=== PATIENT | female | born 1940 | race Caucasian/White ===

== ENCOUNTER → 2020-02-10 | Outpatient (REF) | payer MEDICARE, OTHER | LOC: M LAB REF 09:37 | PROVIDERS: ATTEND Dermatology | DX: C44.319 Basal cell carcinoma of skin of other parts of face (principal); L90.5 Scar conditions and fibrosis of skin ==

== ENCOUNTER → 2020-08-01 | Outpatient (CLI) | payer MEDICARE, OTHER ==
--- NOTE | 2020-08-01 14:16 | REP ---
INDICATION: PAIN LEFT HIP COMPARISON: None. TECHNIQUE: Frontal view of the pelvis with neutral and frog-lateral views of the left hip. FINDINGS: Advanced osteoarthritic degenerative changes include osteophytosis, subchondral/periarticular heterogeneity and cystic changes along with near complete joint space obliteration. No acute fracture or dislocation. IMPRESSION: Advanced osteoarthritic degenerative changes to the left hip. <Electronically signed by Max Ayala > 08/01/20 [id number]
== END ==
LOC: M SOG 13:41
PROVIDERS: ATTEND Orthopaedic Surgery Adult Reconstructive Orthopaedic Surgery
DX: M16.12 Unilateral primary osteoarthritis, left hip (principal)

== ENCOUNTER → 2020-10-30 | Outpatient (CLI) | payer MEDICARE, OTHER | LOC: M PT 13:26 | PROVIDERS: ATTEND Orthopaedic Surgery Adult Reconstructive Orthopaedic Surgery | DX: M17.12 Unilateral primary osteoarthritis, left knee (principal) ==

== ENCOUNTER → 2020-11-20 | Outpatient (CLI) | payer MEDICARE, OTHER ==
[~2020-11-20] MED LIST: ASCO50TA PO; ASPI-161 PO; ASPI-551 PO; C 50TAB PO; DOCU100C16 PO; FERR1TAB8 PO; FERR325T3 PO; LISI20TA33 PO; MM S100C PO; TRAM50TA2 PO
--- NOTE | 2020-11-20 11:55 | REP ---
INDICATION: LT HIP OA. COMPARISON: Radiographs 08/01/2020. TECHNIQUE: Axial CT of the pelvis and hips, bilateral knees performed with sagittal and coronal reconstruction images, as per Rasta protocol. FINDINGS: There is no evidence of fracture or dislocation. There are degenerative changes of the lower lumbar spine. There is moderately severe narrowing of both hip joints with associated subchondral sclerosis and cystic change in the left acetabulum and femoral head, with subchondral sclerosis in the right acetabulum and femoral head. There is moderate spurring of the right femoral head and acetabulum. Large spurs are noted of the left femoral head and acetabulum. No adenopathy is seen in the pelvis. There is extensive diverticulosis of the sigmoid colon without evidence of acute diverticulitis. No pelvic mass is visualized. IMPRESSION: Degenerative changes lower lumbar spine and bilateral hips as discussed above. <Electronically signed by Lars Kramer > 11/20/20 [id number]
== END ==
LOC: M RAD 10:31
PROVIDERS: ATTEND Orthopaedic Surgery Adult Reconstructive Orthopaedic Surgery
DX: M16.12 Unilateral primary osteoarthritis, left hip (principal)

== ENCOUNTER → 2020-11-27 | Outpatient (CLI) | payer MEDICARE, OTHER ==
[~2020-11-27] MED LIST changes: -ASCO50TA PO; -ASPI-161 PO; -ASPI-551 PO; -C 50TAB PO; -DOCU100C16 PO; -FERR1TAB8 PO; -FERR325T3 PO; -MM S100C PO; -TRAM50TA2 PO
[2020-11-27 11:32] LABS: APPEARANCE, URINE CLEAR (CLEAR); BILIRUBIN, URINE AUTO NEGATIVE (NEGATIVE); BLOOD, URINE BLOOD NEGATIVE (NEGATIVE); COLOR, URINE STRAW (YELLOW); GLUCOSE, URINE (UA) AUTO NEGATIVE (NEGATIVE); KETONE, URINE AUTO TRACE mg/dL (NEGATIVE); LEUKOCYTE ESTERASE, URINE AUTO NEGATIVE (NEGATIVE); NITRITE, URINE AUTO NEGATIVE (NEGATIVE); PROTEIN, URINE AUTO NEGATIVE (NEGATIVE); SPECIFIC GRAVITY URINE AUTO 1.004 (1.002-1.035); UROBILINOGEN, URINE AUTO 0.2 mg/dL (0.0-2.0)
[2020-11-27 11:33] LABS: BACTERIA, URINE AUTO NEGATIVE (NEGATIVE); RBC, URINE AUTO 1 /HPF (0-3); SQUAMOUS EPITHELIAL CELL UR AU 0 /HPF (0-6); WBC, URINE AUTO 1 /HPF (0-3)
[2020-11-27 11:35] LABS: BASO % 0.5 % (0.0-1.0); EOS # 0.1 10^3/uL (0.0-0.5); EOS % 0.8 % (0.0-3.0); HEMATOCRIT 43.7 % (36.0-47.0); HEMOGLOBIN 14.7 g/dl (12.0-15.5); LYMPH # 1.7 10^3/uL (1.5-5.0); LYMPH % 26.9 % (24.0-44.0); MEAN CORPUSCULAR HEMOGLOBIN 31.1 pg (27.0-33.0); MEAN CORPUSCULAR HGB CONC 33.6 g/dl (32.0-36.5); MEAN CORPUSCULAR VOLUME 92.6 fl (80.0-96.0); MONO # 0.4 10^3/uL (0.0-0.8); MONO % 6.6 % (2.0-8.0); NEUTROPHILS # 4.1 10^3/uL (1.5-8.5); NEUTROPHILS % 64.7 % (36.0-66.0); PLATELET COUNT, AUTOMATED 311 10^3/uL (150-450); RED BLOOD COUNT 4.72 10^6/uL (4.00-5.40); WHITE BLOOD COUNT 6.3 10^3/uL (4.0-10.0)
[2020-11-27 11:42] LABS: INR 0.91; PROTHROMBIN TIME 12.7 SECONDS (12.7-14.5)
[2020-11-27 12:14] LABS: ALBUMIN 3.9 GM/DL (3.2-5.2); ALT/SGPT 28 U/L (12-78); BILIRUBIN,TOTAL 0.7 MG/DL (0.2-1.0); BLOOD UREA NITROGEN 12 MG/DL (7-18); CALCIUM LEVEL 9.5 MG/DL (8.8-10.2); CARBON DIOXIDE LEVEL 27 MEQ/L (21-32); CHLORIDE LEVEL 105 MEQ/L (98-107); GLOMERULAR FILTRATION RATE > 60.0 (>39); GLUCOSE, FASTING 89 MG/DL (70-100); POTASSIUM SERUM 4.2 MEQ/L (3.5-5.1); SODIUM LEVEL 138 MEQ/L (136-145); TOTAL PROTEIN 6.9 GM/DL (6.4-8.2)
--- NOTE | 2020-11-27 12:56 | ECGEPIP ---
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
== END ==
LOC: M LAB 10:44
PROVIDERS: ATTEND Nurse Practitioner Family
DX: Z01.818 Encounter for other preprocedural examination (principal); Z79.01 Long term (current) use of anticoagulants

== ENCOUNTER → 2020-11-29 | Outpatient (CLI) | payer MEDICARE, OTHER | LOC: M LABSMTC 09:06 | PROVIDERS: ATTEND Anesthesiology | DX: Z01.818 Encounter for other preprocedural examination (principal); Z11.52 Encounter for screening for COVID-19 ==

== ENCOUNTER 2020-12-04 08:53 | Observation (INO) | payer MEDICARE, OTHER ==
[~2020-12-04] VITALS: Ht 160 cm; Wt 61.2 kg
[~2020-12-04 08:53] MED LIST changes: +ACETAMINOPHEN 500 MG TAB PO ONE; +GLYCOPYRROLATE INJ 0.2 MG/ML 2 ML VIAL As Ordered ONE; +LIDOCAINE 2% 100MG/5ML SDV (FOR ANES.) As Ordered ONE; +METOCLOPRAMIDE INJ 10MG/2ML VIAL (J2765 PER 1) As Ordered ONE; +MIDAZOLAM INJ 2MG/2ML VIAL (J2250 PER 1MG) As Ordered ONE; +MORPHINE 10 MG/ML 1ML VIAL (J2270) As Ordered ONE; +NAPROXEN 250 MG TAB PO ONE; +NEOSTIGMINE 10MG/10ML VIAL (J2710 PER 0.5MG) As Ordered ONE; +NS 1,000 ML IV ONE; +ONDANSETRON 4MG/2ML VIAL As Ordered ONE; +PREGABALIN 25 MG CAP (LYRICA) PO ONE; +ROCURONIUM BROMIDE 50 MG/5 ML VIAL As Ordered ONE; +ROPIVA 125MG/EPINEPH 0.25MG/CLONID 40MCG/KETOR 15MG IN NS 50ML SYRINGE PA ONE; +TRANEXAMIC ACID INJection 1,000 MG in NS 50 ML IV ONE; +ceFAZolin SOD 1 GM in D5W MINI-BAG PLUS 50 ML IV ONE; +ceFAZolin SOD 2 GM in IV 1 EA IV ONE; +dexameTHASONE 4 MG/ML 1ML VIAL (J1100 PER 1MG) IV ONE; +fentaNYL 100 MCG/2 ML INJECTION (J3010) As Ordered ONE; +propofoL 200 MG/20 ML VIAL As Ordered ONE
[2020-12-04] MEDS ORDERED: TRANEXAMIC ACID 100 MG/ML 10ML VIAL As Ordered ONE (10:51)
[2020-12-04] MEDS ORDERED: ePHEDrine SULFATE 25 MG/5 ML(5MG/ML) SYRINGE As Ordered ONE (12:02)
[2020-12-04] MEDS ORDERED: propofoL 200 MG/20 ML VIAL As Ordered ONE (13:01)
[2020-12-04] MEDS ORDERED: MOM 30ML SUSPENSION UDC PO PRN (14:15)
[2020-12-04] MEDS ORDERED: fentaNYL 100 MCG/2 ML INJECTION (J3010) IV PRN (14:15)
[2020-12-04] MEDS ORDERED: oxyCODONE 5MG TAB PO PRN ×3 (14:15→14:20)
[2020-12-04] MEDS ORDERED: LR 1,000 ML IV SCH (14:15)
[2020-12-04] MEDS ORDERED: ONDANSETRON 4MG/2ML VIAL IV PRN ×2 (14:15→14:20)
[2020-12-04] MEDS ORDERED: SENOKOT S TAB PO PRN (14:15)
[2020-12-04] MEDS ORDERED: MIRALAX *UNIT DOSE* 17GM PACKET PO PRN (14:15)
--- NOTE | 2020-12-04 14:18 | ROOPDOC ---
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 ESTIMATED BLOOD LOSS: Approximately less than 200 mL. COMPLICATIONS: No known REMARKS: Patient was seen in the preoperative area and the left lower extremity was checked for any active bleeding ulcerations or signs of infection. Patient did not demonstrate any of these. The consent was reviewed. Prior to surgical intervention the [facility] plan was reviewed and adjusted.. FINDINGS: Left hip osteoarthritis with coxa magna and dysplasia SPECIMENS REMOVED: None PROCEDURE NOTE: Components: [place] Trident 2 titanium acetabular shell size 52 mm Accolade 2 size # 4 femoral stem MDM liner 28 mm inner diameter Ceramic femoral head 28 mm standard 0 DESCRIPTION OF PROCEDURE: The patient was brought to the operating room and a surgical pause was carried out. The patient was then positioned for a spinal anesthetic which was carried out. The patient was then positioned in the right lateral decubitus position for the left total hip arthroplasty. Appropriate padding was carried out including an axillary roll. Patient was secured with the Stulberg positioning system. The patient and underwent a chlorhexidine wash of the left lower extremity followed by 2 times alcohol wash and then 1 hydrogen peroxide wash. 2 standard sterile chlorhexidine preps were carried out utilizing the [facility]. The patient was then prepped and draped in the standard fashion. Of note, in the right lateral decubitus position. It was noted that the patient had an internal rotation deformity of the left lower extremity with no external rotation available and limited abduction of the hip. A surgical pause was carried out and a surgical safety checklist was completed. The modified Alexander approach was utilized for the lateral skin incision. Skin and subcutaneous tissues were incised down to the fascia. The fascia was split. This was retracted to expose the abductors. The abductors and capsule were elevated using electrocautery in a single layer. Hohmann retractors were placed to help with visualization. Once the proximal femur had been skeletonized the soft tissue, the iliac crest array was placed using 3 pins for the Rasta system. The patient did have a very narrow iliac crest so the initial 3 stab incisions were connected to make 1 long incision to allow dissection down to the iliac crest and better positioning of the pins. The checkpoint for the greater trochanter was then placed. The left lower extremity was then registered. The hip was dislocated. The labrum was removed with electrocautery and other soft tissues to help with exposure. Electrocautery was used for hemostasis throughout the procedure. The acetabular checkpoint was then placed. The pelvis and acetabular cup was then registered using the [employer] robot. The robot was then brought in for appropriate reaming as per the preoperative plan. A 52 mm cup was reamed. Additional soft tissue was removed from the acetabulum using electrocautery. The [employer] robot was then used to impact the cup at the preplanned version and abduction angle. This was seated appropriately. The dual mobility liner was then impacted without difficulty and check to ensure it was secured. The patient then had the leg placed in the bag with a femoral elevator and a Cat elevating the proximal femur. Electrocautery was used to free up soft tissue at the posterior lateral aspect of the femur. A rongeur and then a box osteotome were used to open up the femoral canal followed by the canal finder. Broaching then occurred up to a size 4, following the tuscarora version of the patient's femoral canal. The size 4 appeared to be the most appropriate. A calcar reamer was utilized. This was trialed with the standard head and neck and found to be a little tight and had lengthen the leg according to the robotic program. This was retrialed with a -2.7 head. This appeared to be appropriate. There was appropriate tensioning, leg length and offset as well as a good stable range of motion. This was trialed and the leg was taken through stable range of motion without any risk of dislocation being noted. The final compo nents were assembled. The stem was inserted. This was retrialed. It was noted that the -2.7 head neck combination was a few millimeters off so a 0 head neck combination was utilized and trialed and found to be appropriate. The trunnion of the size 4 stem was cleansed with normal sterile saline and dried and then the dual mobility head was impacted. This was then reduced and taken through a full stable range of motion. Wound was irrigated and tranexamic acid was allowed to sit for 3 minutes. The wound also had Betadine soaking in it. The layered closure then occurred with #1 Vicryl closure deep followed by #1 Vicryl and strata fix for the abductors and then #1 Vicryl and strata fix for the fascia. The subcutaneous layer was closed with interrupted #1 Vicryl followed by running 2.0 Vicryl followed by three-point 0 Monocryl. Normal sterile saline and Betadine washes were carried out in between layers. The incision for the iliac crest array was irrigated with normal sterile saline and painted with Beta dine before closure with #1 Vicryl, 2.0 Vicryl and three-point 0 Monocryl. The wounds were sealed with Steri-Strips followed by Telfa and Tegaderm for the iliac crest dressing and a Mepilex dressing for the Alexander incision. The patient was taken to the recovery room stable with no known complications The patient will be admitted to the hospitalist service. Anticipate discharge postop day 1 if there are no issues. Physical therapy to mobilize. Discharge Instructions Total Hip Arthroplasty 1. Pain: You may take oxycodone as prescribed for pain. Supplement with Naproxen and Tylenol as needed. Ice pack to operative hip as tolerated. 2. Wound care: Remove lateral head dressing on postop day 7. The iliac crest pin site dressing can be changed every 3 days with Telfa and Tegaderm. call [phone] with any questions or concerns. Hygiene: The patient may shower. No tub baths. Check dressing seal prior to bathing. 3. Activity: WBAT right lower extremity. Front wheeled walker versus crutches for ambulation. Fall precautions. Anterolateral hip precautions (NO figure of 4/crossing legs, combined external rotation/extension, combined internal rotation/abduction). 4. Driving: No driving until cleared by your surgeon. Do not drive if taking narcotic pain medications as these may make you drowsy. 5. DVT Prophylaxis: Continue taking aspirin 81 mg p.o. twice daily as prescribed for the prevention of blood clots. Ankle pumps every 1 hour while awake. ROLA hose at all times for 1 month after surgery. May remove for hygiene and wound care. 6. Placement: Plan is to discharge patient to home with home health including nursing and physical therapy. 7. Surgeon Follow-up: The patient is scheduled to be seen in Dr. Lisa's office 2 weeks post op with xrays. 8. Primary care Follow-up: Please see your primary care provider in the next 2 to 5 weeks for general medical re-evaluation and medication review. 9. Labs: CBC without differential to be drawn on postop day 3 with results to PCP and please fax to [phone]. 10. Please contact [facility] if you have any questions or concerns at [phone]. CHANTEL LISA MD Dec 04, 2020 14:18
[2020-12-04] MEDS ORDERED: SENNA 8.6 MG TAB (SENOKOT) PO PRN (14:20)
--- NOTE | 2020-12-04 14:22 | REP ---
INDICATION: POST OP/LOWSET AP PELVIS. COMPARISON: Preoperative examination 08/01/2020 TECHNIQUE: A single AP view of the pelvis was performed. FINDINGS: Since the last examination a total left are hip arthroplasty was performed. The femoral and acetabular components of which are well seated and well approximated. The alignment is near anatomical. Advanced degenerative changes are again seen involving the right hip. IMPRESSION: As above <Electronically signed by Narinder Young > 12/04/20 [id number]
[2020-12-04 15:00] VITALS: BP 124/75
[2020-12-04 15:30] VITALS: BP 124/73
[2020-12-04] MEDS: NAPROXEN 250 MG TAB PO SCH (15:39)
[2020-12-04] MEDS: ASPIRIN 81MG ENTERIC TABLET PO SCH ×2 (15:39→20:23)
[2020-12-04] MEDS: ACETAMINOPHEN TAB 650MG DOSE (2X325MG) PO SCH ×2 (15:40→17:56)
[2020-12-04] MEDS: LR 1,000 ML IV SCH (15:40)
[2020-12-04 15:45] LABS: HEMATOCRIT 38.5 % (36.0-47.0); HEMOGLOBIN 12.4 g/dl (12.0-15.5); MEAN CORPUSCULAR HEMOGLOBIN 30.8 pg (27.0-33.0); MEAN CORPUSCULAR HGB CONC 32.2 g/dl (32.0-36.5); MEAN CORPUSCULAR VOLUME 95.5 fl (80.0-96.0); PLATELET COUNT, AUTOMATED 273 10^3/uL (150-450); RED BLOOD COUNT 4.03 10^6/uL (4.00-5.40); WHITE BLOOD COUNT 9.5 10^3/uL (4.0-10.0)
[2020-12-04 15:55] LABS: INR 1.05; PROTHROMBIN TIME 14.1 SECONDS (12.7-14.5)
[2020-12-04 15:56] LABS: PARTIAL THROMBOPLASTIN TIME 26.9 SECONDS (25.9-37.0)
[2020-12-04 16:06] LABS: BLOOD UREA NITROGEN 10 MG/DL (7-18); CARBON DIOXIDE LEVEL 28 MEQ/L (21-32); CHLORIDE LEVEL 107 MEQ/L (98-107); CREATININE FOR GFR 0.79 MG/DL (0.55-1.30); GLOMERULAR FILTRATION RATE > 60.0 (>39); GLUCOSE, FASTING 146 MG/DL (70-100); POTASSIUM SERUM 4.4 MEQ/L (3.5-5.1); SODIUM LEVEL 140 MEQ/L (136-145)
[2020-12-04 16:30] VITALS: BP 121/70
[2020-12-04 17:30] VITALS: BP 121/70
[2020-12-04] MEDS: ceFAZolin SOD 2 GM in IV 1 EA IV SCH (17:55)
[2020-12-04] MEDS: traMADol 50 MG TAB PO PRN (17:56)
--- NOTE | 2020-12-04 18:18 | HPEPDOC ---
[facility] Medical History & Physical Date of Admission Dec 04, 2020 Date of Service: Dec 04, 2020 History and Physical CHIEF COMPLAINT: Status post left hip replacement/left hip osteoarthritis HISTORY OF PRESENT ILLNESS: 80-year-old female with history of left hip osteoarthritis with severe limitations of activities of daily living failed on conservative management status post left hip replacement. Patient was medically optimized by her primary care physician. Hospitalist was called to admit the patient for postop care status post left hip replacement. Patient denies fever chills weight gain weight loss nausea vomiting diarrhea abdominal pain dysuria urgency frequency hematemesis coffee-ground emesis shortness of breath chest pain pressure tightness lightheadedness dizziness polyuria polyphagia polydipsia joint pains muscle aches bilateral upper lower extremity weakness paresthesias expressive or receptive aphasia depression anxiety anemia lymphadenopathy. Patient currently has 0 out of 10 pain while lying in bed. PAST MEDICAL HISTORY: Hypertension gastroesophageal reflux disease PAST SURGICAL HISTORY: Colonoscopy 2011 neck cyst removal basal cell carcinoma Dr. Cordon 2019 cataract removal bilateral 2017 SOCIAL HISTORY: Denies alcohol recreational drug use tobacco use lives alone FAMILY HISTORY: Father of lung cancer mother hypertension due to heart disease ALLERGIES: Please see below. REVIEW OF SYSTEMS: 10 point review of systems negative aside from positive findings in HPI HOME MEDICATIONS: Please see below. PHYSICAL EXAMINATION: VITAL SIGNS: See below GENERAL APPEARANCE: No distress no cyanosis pallor or icterus HEENT: No JVD thyromegaly moist mucous membranes CARDIOVASCULAR: S1-S2 regular rate rhythm no murmurs rubs or gallops LUNGS: Clear to auscultation bilaterally ABDOMEN: Positive bowel sounds soft nontender nondistended EXTREMITIES: Postop left hip no pitting edema bilateral lower extremities LABORATORY DATA: See below. IMAGING: See below MICROBIOLOGY: Please see below. ASSESSMENT: 80-year-old female who lives alone with gastroesophageal reflux disease hypertension basal cell carcinoma cataract extraction cyst removal in the neck with severe osteoarthritis of the left hip status post replacement. Left hip replacement-postop management per orthopedic surgery including activity level DVT prophylaxis pain control bowel regimen ARU has been consulted. Patient lives alone. Gastroesophageal reflux disease-resume PPI Hypertension-resume lisinopril CODE STATUS full code Vital Signs Vital Signs Date Time Temp Pulse Resp B/P (MAP) Pulse Ox O2 Delivery O2 Flow Rate FiO2 12/04/20 17:56 16 12/04/20 16:30 97.1 66 121/70 (87) 96 Room Air Laboratory Data Labs 24H Laboratory Tests 2 12/04/20 15:31: Nucleated Red Blood Cells % (auto) 0.2H, Prothrombin Time 14.1H, Prothromb Time International Ratio 1.05, Activated Partial Thromboplast Time 26.9, Anion Gap 5L, Glomerular Filtration Rate > 60.0, Calcium Level 9.0 CBC/BMP Laboratory Tests 12/04/20 15:31 Home Medications Scheduled Lisinopril (Lisinopril) 20 Mg Tablet, 20 MG PO DAILY Allergies Coded Allergies: No Known Allergies (Unverified , 12/04/20) A-FIB/CHADSVASC A-FIB History Current/History of A-Fib/PAF?: No Current PO Anticoag Therapy: No Age/Risk Factor Scoring CHADSVASC: CHADSVASC Response (Comments) Value Age Risk Factor Age >/= 75 years old 2 Gender Risk Factor Female 1 Hx of CHF No 0 Hx of HTN Yes 1 Hx of Stroke/TIA/or VTE No 0 Hx of Diabetes No 0 Hx of Vascular Disease No 0 Total 4 Treatment Treatment ordered: NONE YAKOV BUTLER MD Dec 04, 2020 18:18
[2020-12-04 18:30] VITALS: BP 114/72
[2020-12-04] MEDS: DOCUSATE SODIUM 100MG CAPSULE PO SCH (20:23)
[2020-12-04 20:30] VITALS: BP 99/59
[2020-12-05] MEDS: ACETAMINOPHEN TAB 650MG DOSE (2X325MG) PO SCH ×3 (00:39→12:19)
[2020-12-05] MEDS: LR 1,000 ML IV SCH (00:40)
[2020-12-05 00:43] VITALS: BP 99/58
[2020-12-05] MEDS: NAPROXEN 250 MG TAB PO SCH (02:33)
[2020-12-05] MEDS: ceFAZolin SOD 2 GM in IV 1 EA IV SCH (02:33)
[2020-12-05 04:42] VITALS: BP 104/57
[2020-12-05 06:44] LABS: BLOOD UREA NITROGEN 13 MG/DL (7-18); CALCIUM LEVEL 8.3 MG/DL (8.8-10.2); CARBON DIOXIDE LEVEL 24 MEQ/L (21-32); CHLORIDE LEVEL 107 MEQ/L (98-107); CHOLESTEROL LEVEL 161 MG/DL (<200); CHOLESTEROL RISK RATIO 1.987 (<5); GLOMERULAR FILTRATION RATE > 60.0 (>39); GLUCOSE, FASTING 107 MG/DL (70-100); HDL CHOLESTEROL 81 MG/DL (>40); LDL CHOLESTEROL 69 MG/DL (<100); NON-HDL-C 80 MG/DL; POTASSIUM SERUM 4.4 MEQ/L (3.5-5.1); SODIUM LEVEL 139 MEQ/L (136-145); TRIGLYCERIDES LEVEL 55 MG/DL (<150)
--- NOTE | 2020-12-05 07:24 | IPNPDOC ---
Text Note Date of Service The patient was seen on 12/05/20. NOTE POD 1 L GRISEL Pt denies any severe pain. Mobilizing to BR with walker and assist. No CP/SOB. Dressing intact to left hip and thigh area as well as the iliac crest, no significant staining, no bruising, mild swelling. Grossly neurovascular intact to left foot and ankle with palpable posterior tibial pulse sensation to light touch and moving toes and ankle. Pacu xrays show L GRISEL prosthesis in position with no obvious complications. Plan for PT and Hospitalist evaluation, possible DC home today. Discharge Instructions Total Hip Arthroplasty 1. Pain: You may take oxycodone as prescribed for pain. Supplement with Naproxen and Tylenol as needed. Ice pack to operative hip as tolerated. 2. Wound care: Remove dressing on postop day 7. Call [phone] with any questions or concerns. Hygiene: The patient may shower. No tub baths. Check dressing seal prior to bathing. 3. Activity: WBAT left lower extremity. Front wheeled walker versus crutches for ambulation. Fall precautions. Anterolateral hip precautions (NO figure of 4/crossing legs, combined external rotation/extension, combined internal rotation/abduction). 4. Driving: No driving until cleared by your surgeon. Do not drive if taking narcotic pain medications as these may make you drowsy. 5. DVT Prophylaxis: Continue taking aspirin 81 mg p.o. twice daily as prescribed for the prevention of blood clots. Ankle pumps every 1 hour while awake. ROLA hose at all times for 1 month after surgery. May remove for hygiene and wound care. 6. Placement: Plan is to discharge patient to home with home health including nursing and physical therapy. 7. Surgeon Follow-up: The patient is scheduled to be seen in Dr. Lisa's office 2 weeks post op with xrays. 8. Primary care Follow-up: Please see your primary care provider in the next 2 to 5 weeks for general medical re-evaluation and medication review. 9. Labs: CBC without differential to be drawn on postop day 3 with results to PCP and please fax to [phone]. 10. Please contact [facility] if you have any questions or concerns at [phone]. VS,Fishbone, I+O VS, Fishbone, I+O Laboratory Tests 12/04/20 15:31 12/05/20 05:33 Vital Signs Date Time Temp Pulse Resp B/P (MAP) Pulse Ox O2 Delivery O2 Flow Rate FiO2 12/05/20 04:42 97.1 67 19 104/57 (73 97 Room Air I&O- Last 24 Hours up to 6 AM 12/05/20 06:00 Intake Total 2105 ml Output Total 850 ml Balance 1255 ml CHANTEL LISA MD Dec 05, 2020 07:24
[2020-12-05 07:49] LABS: HEMATOCRIT 32.1 % (36.0-47.0); MEAN CORPUSCULAR HEMOGLOBIN 30.6 pg (27.0-33.0); MEAN CORPUSCULAR HGB CONC 32.7 g/dl (32.0-36.5); MEAN CORPUSCULAR VOLUME 93.6 fl (80.0-96.0); PLATELET COUNT, AUTOMATED 268 10^3/uL (150-450); RED BLOOD COUNT 3.43 10^6/uL (4.00-5.40); WHITE BLOOD COUNT 11.7 10^3/uL (4.0-10.0)
[2020-12-05 07:50] LABS: HEMOGLOBIN 10.5 g/dl (12.0-15.5)
--- NOTE | 2020-12-05 08:15 | IPNPDOC ---
Date Seen The patient was seen on 12/05/20. Progress Note SUBJECTIVE: c/o minimal 3/10 pain left hip while sitting in bed having breakfast slept well. no c/o n/v/sob/cp OBJECTIVE: PHYSICAL EXAMINATION: VITAL SIGNS: See below GENERAL APPEARANCE: eating breakfast sitting in bed No distress no cyanosis pallor or icterus HEENT: No JVD thyromegaly moist mucous membranes no stridor CARDIOVASCULAR: S1-S2 regular rate rhythm no murmurs rubs or gallops LUNGS: Clear to auscultation bilaterally no w/r/r ABDOMEN: Positive bowel sounds soft nontender nondistended EXTREMITIES: Postop left hip no pitting edema bilateral lower extremities LABORATORY DATA: See below. IMAGING: See below MICROBIOLOGY: Please see below. ASSESSMENT: 80-year-old female who lives alone with gastroesophageal reflux disease hypertension basal cell carcinoma cataract extraction cyst removal in the neck with severe osteoarthritis of the left hip status post replacement. Left hip replacement-postop day 1 management per orthopedic surgery including activity level DVT prophylaxis pain control bowel regimen ARU has been consulted. took 2 tylenol this am w pain 3/10 at bedside . Gastroesophageal reflux disease-resume PPI Hypertension-resume lisinopril but hold if sbp<130mmhg. CODE STATUS full code dispo: await pt/ot evaluation 1-2 days vs aru VS, I&O, 24H, [facility] Vital Signs/I&O Vital Signs Date Time Temp Pulse Resp B/P (MAP) Pulse Ox O2 Delivery O2 Flow Rate FiO2 12/05/20 04:42 97.1 67 19 104/57 (73) 97 Room Air I&O- Last 24 Hours up to 6 AM 12/05/20 06:00 Intake Total 2105 ml Output Total 850 ml Balance 1255 ml Laboratory Data 24H LABS Laboratory Tests 2 12/04/20 15:31: Nucleated Red Blood Cells % (auto) 0.2H, Prothrombin Time 14.1H, Prothromb Time International Ratio 1.05, Activated Partial Thromboplast Time 26.9, Anion Gap 5L, Glomerular Filtration Rate > 60.0, Calcium Level 9.0 12/05/20 05:33: Anion Gap 8, Glomerular Filtration Rate > 60.0, Calcium Level 8.3L, Trigl ycerides Level 55, Total Cholesterol 161, LDL Cholesterol 69, Non-HDL Cholesterol (LDL + VLDL) 80, Total HDL Cholesterol 81, Cholesterol/HDL Ratio 1.987 12/05/20 07:16: Nucleated Red Blood Cells % (auto) 0.0 CBC/BMP Laboratory Tests 12/04/20 15:31 12/05/20 05:33 12/05/20 07:16 YAKOV BUTLER MD Dec 05, 2020 08:15
[2020-12-05] MEDS ORDERED: ENOXAPARIN 40MG/0.4ML SYRINGE (J1650 PER 10MG) SC SCH (09:00)
[2020-12-05] MEDS ORDERED: ASCORBIC ACID 500 MG TAB PO SCH (09:00)
[2020-12-05] MEDS ORDERED: FERROUS SULFATE 325MG TAB PO SCH (09:00)
[2020-12-05] MEDS: ASPIRIN 81MG ENTERIC TABLET PO SCH (09:06)
[2020-12-05] MEDS: DOCUSATE SODIUM 100MG CAPSULE PO SCH (09:06)
[2020-12-05 09:07] VITALS: BP 139/69
[2020-12-05] MEDS: traMADol 50 MG TAB PO PRN (09:07)
[2020-12-05 10:00] VITALS: BP 113/57
[2020-12-05] MEDS ORDERED: ASPI-551 PO (11:55)
[2020-12-05] MEDS ORDERED: DOCU100C16 PO (11:55)
[2020-12-05] MEDS ORDERED: FERR1TAB8 PO (11:55)
[2020-12-05] MEDS ORDERED: TRAM50TA2 PO (11:55)
[2020-12-05] MEDS ORDERED: ASCO50TA PO (11:55)
--- NOTE | 2020-12-05 12:01 | DS.PDOC ---
Discharge Summary General Date of Admission Dec 04, 2020 at 14:06 Date of Discharge 12/05/20 Discharge Summary PROCEDURES PERFORMED DURING STAY: Left hip replacement UNIT ASSISTANT: ORTHOPEDIC SURGERY: DR. LISA DISCHARGE DIAGNOSES: Left hip osteoarthritis s/p left hip replacement iron deficiency anemia HTN GERD DISCHARGE MEDICATIONS: SEE BELOW DISCHARGE INSTRUCTIONS: POSTOP MGT PER ORTHOPEDIC SURGERY. PCP 5 DAYS. HOSPITAL COURSE: 80-year-old female who lives alone with gastroesophageal reflux disease hypertension basal cell carcinoma cataract extraction cyst removal in the neck with severe osteoarthritis of the left hip with severe limitations of her activities of daily living, failed on conservative management as outpt, admitted for left hip replacement status post replacement. Hospitalist admitted the patient postoperatively. Left hip replacement-postop day 1 management per orthopedic surgery including activity level DVT prophylaxis pain control bowel regimen ARU has been consulted, but patient did well with pt/ot who recommended dc home today. took 2 tylenol this am w pain 3/10 at bedside . on prn tramadol. Gastroesophageal reflux disease-resume PPI Hypertension-resume lisinopril but hold if sbp<130mmhg. CODE STATUS full code DISCHARGE PHYSICAL EXAMINATION: PHYSICAL EXAMINATION: VITAL SIGNS: See below GENERAL APPEARANCE: eating breakfast sitting in bed No distress no cyanosis pallor or icterus HEENT: No JVD thyromegaly moist mucous membranes no stridor CARDIOVASCULAR: S1-S2 regular rate rhythm no murmurs rubs or gallops LUNGS: Clear to auscultation bilaterally no w/r/r ABDOMEN: Positive bowel sounds soft nontender nondistended EXTREMITIES: Postop left hip no pitting edema bilateral lower extremities LABORATORY DATA: see chart IMAGING: See chart MICROBIOLOGY: Please see below. TIME SPENT ON DISCHARGE: 30MINUTES. Vital Signs/I&Os Vital Signs Date Time Temp Pulse Resp B/P (MAP) Pulse Ox O2 Delivery O2 Flow Rate FiO2 12/05/20 10:00 97.2 63 18 113/57 (75) 100 Room Air I&O- Last 24 Hours up to 6 AM 12/05/20 05:59 Intake Total 2105 ml Output Total 850 ml Balance 1255 ml Laboratory Data Labs 24H Laboratory Tests 2 12/04/20 15:31: Nucleated Red Blood Cells % (auto) 0.2H, Prothrombin Time 14.1H, Prothromb Time International Ratio 1.05, Activated Partial Thromboplast Time 26.9, Anion Gap 5L, Glomerular Filtration Rate > 60.0, Calcium Level 9.0 12/05/20 05:33: Anion Gap 8, Glomerular Filtration Rate > 60.0, Calcium Level 8.3L, Triglycerides Level 55, Total Cholesterol 161, LDL Cholesterol 69, Non-HDL Cholesterol (LDL + VLDL) 80, Total HDL Cholesterol 81, Cholesterol/HDL Ratio 1.987 12/05/20 07:16: Nucleated Red Blood Cells % (auto) 0.0 CBC/BMP Laboratory Tests 12/04/20 15:31 12/05/20 05:33 12/05/20 07:16 Discharge Medications Scheduled Ascorbic Acid (Vitamin C) 500 Mg Tablet, 500 MG PO DAILY Aspirin (Aspirin EC) 81 Mg Tablet.dr, 81 MG PO BID Docusate Sodium (Docusate Sodium) 100 Mg Capsule, 100 MG PO BID Ferrous Sulfate (Ferrous Sulfate) 325 Mg Tablet, 325 MG PO DAILY Lisinopril (Lisinopril) 20 Mg Tablet, 20 MG PO DAILY, (Reported) Scheduled PRN Tramadol HCl (Tramadol HCl) 50 Mg Tablet, 50 MG PO Q4HP PRN for MILD PAIN (PS 1- 4) Allergies Coded Allergies: No Known Allergies (Unverified , 12/04/20) YAKOV BUTLER MD Dec 05, 2020 12:01
--- OUTSIDE RECORDS SUMMARY | 2020-12-20 10:11 | CCD | Continuity of Care Document ---
Author Author Kristyn LISA MD Organization Unknown Address [address] , [facility] [place] [address] Phone [phone] Care Team Providers Care Tools Developer Name Role Phone Gilma Banks M.D. AUTM [phone] AUTM Unavailable Problems Active Problems Provider Date Essential hypertension Khadar Lisa MD Onset: 08/01/2020 Social History Type Date Description Comments Sex Unknown ETOH Use Consumes 1 glass of wine per day Tobacco Use Start: Unknown Non Smoker Recreational Drug Use Denies Drug Use Smoking Status Reviewed: 10/16/20 Non Smoker Allergies and adverse reactions Description No Known Drug Allergies Medications Active Medications SIG Qnty Indications Ordering Provide r Date Lisinopril 20mg Tablets 1 tab by mouth daily Unknown Immunizations Description No Information Available Vital Signs Date Vital Result Comment 10/16/2020 12:56pm Body Temperature 98.2 F 08/16/2020 2:32pm Body Temperature 97.2 F Results Description No Information Available Procedures Date Code Description Status 12/04/2020 96626 Arthroplasty Hip Total Completed 10/16/2020 99580 Office/Outpatient Established Mo d MDM 30-39 Min Completed 08/16/2020 18879 Office/Outpatient Established Mo d MDM 30-39 Min Completed 08/01/2020 96302 Office/Outpatient New Moderate M DM 45-59 Minutes Completed Medical Devices Description No Information Available Encounters Type Date Location Provider Dx Diagnosis Office Visit 10/16/2020 1:00p [facility] Khadar Lisa MD M16.12 Unilateral primary osteoarthritis, left hip Office Visit 08/16/2020 2:30p Emily Lisa MD M16.12 Unilateral primary osteoarthritis, left hip [facility] Unilateral primary osteoarthritis, left hip Assessments Date Code Description Provider 12/04/2020 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 She is having issues with the hip locking up, presenting a falls risk. She was advised that she may want to consider utilizing her walker in the meantime.I did explain to the patient that a total joint replacement procedure is an elective procedure. Candidacy for the procedure is based on imaging and the patient's symptoms and whether or not the patient would like to proceed with the surgery. The procedure is performed for pain relief only. Any other gains are secondary. The risks of the procedure include but are not limited to infection, periprosthetic fracture, damage to local neurovascular or soft tissue structures, deep vein thrombosis or pulmonary emboli, and need for revision surgery. Anesthetic risks will be discussed with the anesthesiologist. These include but are not limited to, heart attack, stroke and .The patient was advised that the Rasta robot would be used to assist with her total hip arthroplasty and literature was provided for thisThe lm sorto does have Hibiclens [facility] prior to surgery.A total joint booklet was providedThe patient signed consent for left total hip arthroplasty Rasta robotic assisted * Follow up:* Booking left total hip arthroplasty Functional Status Description No Information Available Mental Status Description No Information Available Referrals Description No Information Available
--- OUTSIDE RECORDS SUMMARY | 2020-12-20 10:11 | CCD | Continuity of Care Document ---
Author Author Kristyn LISA MD Organization Unknown Address [address] [facility], [facility] [place] [address] Phone [phone] Care Team Providers Care Water Analyst Name Role Phone Gilma Banks M.D. AUTM [phone] AUTM Unavailable Problems Active Problems Provider Date Essential hypertension Khadar Lisa MD Onset: 08/01/2020 Social History Type Date Description Comments Sex Unknown ETOH Use Consumes 1 glass of wine per day Tobacco Use Start: Unknown Non Smoker Recreational Drug Use Denies Drug Use Smoking Status Reviewed: 12/18/20 Non Smoker Allergies and adverse reactions Description No Known Drug Allergies Medications Active Medications SIG Qnty Indications Ordering Provide r Date Lisinopril 20mg Tablets 1 tab by mouth daily Unknown Tramadol HCL 50mg Tablets Gini Wilkes M.D. SM Aspirin Adult Low Strength 81mg Tablets Gini Salas M.D. 000 Ferrous Sulfate 325(65Fe) mg Tablets Gini Salas M.D. Docusate Sodium 100mg Capsules Gini Wilkes M.D. Immunizations Description No Information Available Vital Signs Date Vital Result Comment 10/16/2020 12:56pm Body Temperature 98.2 F 08/16/2020 2:32pm Body Temperature 97.2 F Results Description No Information Available Procedures Date Code Description Status 12/04/2020 99611 Arthroplasty Hip Total Completed 10/16/2020 92048 Office/Outpatient Established Mo d MDM 30-39 Min Completed 08/16/2020 21842 Office/Outpatient Established Mo d MDM 30-39 Min Completed 08/01/2020 94651 Office/Outpatient New Moderate M DM 45-59 Minutes Completed Medical Devices Description No Information Available Encounters Type Date Location Provider Dx Diagnosis Office Visit 12/18/2020 10:00a [facility] Khadar Lisa MD C95.90 Leukemia, unspecified not having achieved remission Z96.642 Presence of left artificial hip joint Z47.89 Encounter for other orthoped ic aftercare Office Visit 10/16/2020 1:00p [facility] Khadar Lisa MD M16.12 Unilateral primary osteoarthritis, left hip Office Visit 08/16/2020 2:30p [facility] Khadar Lisa MD M16.12 Unilateral primary osteoarthritis, left hip Office Visit 08/01/2020 2:00p [facility] Khadar Lisa MD M16.12 Unilateral primary osteoarthritis, left hip Assessments Date Code Description Provider 12/18/2020 C95.90 Leukemia Khadar Lisa MD 12/18/2020 Z96.642 History of total replacement of left hip joint Khadar Lisa MD 12/18/2020 Z47.89 Encounter for other orthopedic a ftercare Khadar Lisa MD 12/04/2020 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 This most likely represents chronic lymphocytic leukemia (CLL/SLL), but mantle cell lymphoma cannot be completely ruled out.Peripheral blood flow cytometry, including FISH study for CLL and t (11; 14) is recommended. If lymphadenopathy present, lymph node biopsy is also recommended.B-Cell PCR: The sample yield DNA of insufficient quantity to provide a valid results. If clinically indicated please submit a new sample.Degenerative joint disease.Comment: Hematology/oncology consultation is recommended.Spoke with the pathologist by phone. Consultation for hematology/oncology sent with Dr. Small at [facility]. Discussed with patient * Z96.643 History of total replacement of left hip joint* New Labs:* CBC With Differential, Ordered: 12/18/20 * Comments:* The patient appears to have well-healing incisions. The left total hip arthroplasty prosthesis is in good position. She would like to go to outpatient physical therapy near [place] and we will send a prescription there when she is ready for this. She continues with home therapy for now. I have answered her questions her satisfaction. We will see her for follow-up in 4 weeks time for reevaluation.The patient did have some dizziness and weakness reported postop. Her hemoglobin was 10.5 on discharge which was fairly decent. This will be repeated with a CBC and differential. She is taking iron currently. * Follow up:* 4 weeks * Z47.89 Encounter for other orthopedic aftercare Functional Status Description No Information Available Mental Status Description No Information Available Referrals Refer to Reason for Referral Status Appt Date Nicole Small M.D. Left hip, bone and tissue, s /p total hip arthroplasty: Diffuse CD5 positive B-cell infiltrates. This most likely represents chronic lymphocytic leukemia (CLL/SLL), but mantle cell lymphoma cannot be completely ruled out. Peripheral blood flow cytometry, including FISH study for CLL and t (11; 14) is recommended. If lymphadenopathy present, lymph node biopsy is also recommended. B-Cell PCR: The sample yield DNA of insufficient quantity to provide a valid results. If clinically indicated please submit a new sample. Degenerative joint disease. Comment: Hematology/oncology consultation is recommended. [facility] Medical Oncology & Hematology [address] [place] [address] [phone]
--- OUTSIDE RECORDS SUMMARY | 2020-12-20 10:11 | CCD | Continuity of Care Document ---
Author Author Kristyn MONSIVAIS M.D. Organization Unknown Address [address] [place] [address] Phone [phone] Care Team Providers Care Snack Bar Cook Name Role Phone Renetta MAHMOOD.Tereso AUTM [phone] Mario Contreras MD AUTM [phone] [facility] G[facility] - Gastroenterology AUTM [facility] Nurse Practitioners - Dermatology AUTM [phone] Problems Active Problems Provider Date Essential hypertension Nguyen Alex RPA-C Onset: 06/11 Mixed hyperlipidemia Nguyen Alex RPA-C Onset: 012 Social History Type Date Description Comments Sex Unknown Tobacco Use Start: Unknown Never Used Smokeless Tobacco ETOH Use Occasionally consumes alcohol Tobacco Use Start: Unknown Patient has never smoked Recreational Drug Use Denies Drug Use Smoking Status Reviewed: 12/10/20 Patient has never smoked Exercise Type/Frequency Exercises regularly Tattoo/Piercing Pierced ears Sun Exposure Use less than 15 SPF Seat Belt/Car Seat Always uses seat belt Smoke Alarms Yes Smoke Alarms Carbon Monoxide Detector: Yes Allergies, Adverse Reactions, Alerts Description No Known Drug Allergies Medications Active Medications SIG Qnty Indications Ordering Provide r Date Lisinopril 20mg Tablets 1 tab by mouth every morning for blood pressure 90tabs I10 Gilma Monsivais M.D. 06/07/2010 Vitamin C 500mg Tablets 1 by mouth every day Unknown Aspir-[address] 1 by mouth every day Unknown Docusate Sodium 100mg Capsules take one capsule by mouth twice a day to soften stool Unk nown Ferrous Sulfate 325mg Tablets 1 tab po daily Unknown Tramadol HCL 50mg Tablets take 1 tablet by mouth every 6 hours as needed for pain Unknown Immunizations CPT Code Status Date Vaccine Lot # [id number] Given 05/14/2020 Moderna Sars-(Co vid-19) vaccine, mRNA, LNP-S, PF, 100 mcg/ 0.5 mL 45769 Given 04/12/2020 Moderna Sars-(Co vid-19) vaccine, mRNA, LNP-S, PF, 100 mcg/ 0.5 mL 10853 Given 12/22/2017 Influenza Virus Vaccine, Oliver drivalent,multidose vial 63443 Given 03/10/2017 Boostrix (Tdap) Tetnus, Diphtheria Toxoids & Acellular Pertussis [id number] 91824 Given 12/10/2016 Influenza Vaccination 39856 Given 01/23/2016 Influenza Vaccination 04079 Given 08/24/2014 Prevnar 13 [id number] 68040 Given 12/02/2013 Influenza Vaccination 93361 Given 08/25/2013 Zostavax 85775 Given 02/10/2013 Influenza Vaccination 39418 Given 01/23/2012 Pneumococcal Vaccine [id number] 90807 Given 01/23/2012 Influenza Vaccination/preser vative free [id number] Q2038 Given 12/10/2010 Influenza Vaccine (Fluzone)( medicare) 36655 Given 12/10/2010 Influenza Vaccination [id number] Vital Signs Date Vital Result Comment 12/10/2020 11:00am BP Systolic 159 mmHg BP Diastolic 72 mmHg BP Systolic Recheck 133 mmHg BP Diastolic Recheck 66 mmHg Heart Rate 100 /min Body Temperature 97.0 F Respiratory Rate 18 /min Height 63 inches 5'3" Weight 135.00 lb O2 % BldC Oximetry 98 % Peak Expiratory Flow Rate 306 Estimated Peak Flow Rate [place] Body Weight 115 lb BMI (Body Mass Index) 23.9 kg/m2 10/09/2020 11:18am BP Systolic 189 mmHg BP Diastolic 95 mmHg BP Systolic Recheck 124 mmHg BP Diastolic Recheck 84 mmHg Heart Rate 89 /min Body Temperature 98.0 F Respiratory Rate 16 /min Height 63 inches 5'3" Weight 137.25 lb O2 % BldC Oximetry 97 % Peak Expiratory Flow Rate 299 Estimated Peak Flow Rate [place] Body Weight 115 lb BMI (Body Mass Index) 24.3 kg/m2 Results Test Acquired Date Facility Test Result H/L Range Note Ua Routine 11/27/2020 [facility] [phone] Appearance, Urine CLEAR Normal Clear Color, Urine STRAW Normal Yellow PH,Urine 6.0 units Normal 5.0-9.0 Specific [place] Urine Auto 1.004 Normal 1.002-1.035 Protein, Urine Auto NEGATIVE mg/dL Normal Negative Glucose, Urine (Ua) Auto NEGATIVE mg/dL Normal Negative Ketone, Urine Auto TRACE mg/dL High Negative Urobilinogen, Urine Auto 0.2 mg/dL Normal 0.0-2.0 Bilirubin, Urine Auto NEGATIVE Normal Negative Nitrite, Urine Auto NEGATIVE Normal Negative Leukocyte Esterase, Urine Auto NEGATIVE Normal Negative Blood, Urine Blood NEGATIVE Normal Negative WBC, Urine Auto 1 /HPF Normal 0-3 RBC, Urine Auto 1 /HPF Normal 0-3 Bacteria, Urine Auto NEGATIVE Normal Negative Squamous Epithelial Cell Ur AU 0 /HPF Normal 0-6 Hyaline Cast, Urine Auto 0 /LPF Normal 0-1 Laboratory test finding 11/27/2020 [facility] [phone] Urine Culture FULL REPORT IN L <SEE NOTE> Normal 1 PT & Aptt 11/27/2020 [place] [address] [phone] Prothrombin Time 12.7 seconds Normal 12.7-14.5 Inr 0.91 Normal 2 Partial Thromboplastin Time 27.0 seconds Normal 25.9-37.0 Comprehensive Metabolic Profil 11/27/[address] [place] [address] [phone] Glucose, Fasting 89 mg/dL Normal 70-100 Blood Urea Nitrogen 12 mg/dL Normal 7-18 Creatinine For GFR 0.70 mg/dL Normal 0.55-1.30 Glomerular Filtration Rate > 60.0 Normal >39 3 Sodium Level 138 mEq/L Normal 136-145 Potassium Serum 4.2 mEq/L Normal 3.5-5.1 Chloride Level 105 mEq/L Normal 98-107 Carbon Dioxide Level 27 mEq/L Normal 21-32 Anion Gap 6 mEq/L Low 8-16 Calcium Level 9.5 mg/dL Normal 8.8-10.2 Ast/Sgot 19 U/L Normal 7-37 Alt/SGPT 28 U/L Normal 12-78 Alkaline Phosphatase 72 U/L Normal 45-117 Bilirubin,Total 0.7 mg/dL Normal 0.2-1.0 Total Protein 6.9 GM/DL Normal 6.4-8.2 Albumin 3.9 GM/DL Normal 3.2-5.2 Albumin/Globulin Ratio 1.3 Normal 1.2-2.2 CBC With Differential 11/27/2020 Patient Service [place], [place] [id number] [phone] White Blood Count 6.3 10 Normal 4.0-10.0 Red Blood Count 4.72 10 Normal 4.00-5.40 Hemoglobin 14.7 g/dL Normal 12.0-15.5 Hematocrit 43.7 % Normal 36.0-47.0 Mean Corpuscular Volume 92.6 fl Normal 80.0-96.0 Mean Corpuscular Hemoglobin 31.1 pg Normal 27.0-33.0 Mean Corpuscular HGB Conc 33.6 g/dL Normal 32.0-36.5 Red Cell Distribution Width 12.6 % Normal 11.5-14.5 Platelet Count, Automated 311 10 Normal 150-450 Neutrophils % 64.7 % Normal 36.0-66.0 Lymph % 26.9 % Normal 24.0-44.0 Mineral % 6.6 % Normal 2.0-8.0 Eos % 0.8 % Normal 0.0-3.0 Baso % 0.5 % Normal 0.0-1.0 Immature Granulocyte % 0.5 % Normal 0-3.0 Nucleated Red Blood Cell % 0.0 % Normal 0-0 Neutrophils # 4.1 10 Normal 1.5-8.5 Lymph # 1.7 10 Normal 1.5-5.0 Mineral # 0.4 10 Normal 0.0-0.8 Eos # 0.1 10 Normal 0.0-0.5 Baso # 0.0 10 Normal 0.0-0.2 CBC With Differential 10/15/2020 [facility] [address] [place] [address] [phone] WBC 5.6 x10E3/uL 3.4-10.8 RBC 4.57 x10E6/uL 3.77-5.28 Hemoglobin 14.1 g/dL 11.1-15.9 Hematocrit 42.1 % 34.0-46.6 MCV 92 fL 79-97 MCH 30.9 pg 26.6-33.0 MCHC 33.5 g/dL 31.5-35.7 RDW 12.5 % 11.7-15.4 Platelets 330 x10E3/uL 150-450 Neutrophils 54 % Not Estab. Lymphs 36 % Not Estab. Monocytes 8 % Not Estab. Eos 1 % Not Estab. Basos 1 % Not Estab. Immature Cells TNP Neutrophils (Absolute) 3.1 x10E3/uL 1.4-7.0 Lymphs (Absolute) 2.0 x10E3/uL 0.7-3.1 Monocytes(Absolute) 0.4 x10E3/uL 0.1-0.9 Eos (Absolute) 0.0 x10E3/uL 0.0-0.4 Baso (Absolute) 0.0 x10E3/uL 0.0-0.2 Immature Granulocytes 0 % Not Estab. Immature Grans (Abs) 0.0 x10E3/uL 0.0-0.1 NRBC [facility] Hematology Comments: [facility] Lipid Panel 10/15/2020 [facility] [address] [place], [place] [id number] [phone] Cholesterol, Total 242 mg/dL High 100-199 Triglycerides 64 mg/dL 0-149 HDL Cholesterol 104 mg/dL >39 VLDL Cholesterol Humza 11 mg/dL 5-40 LDL Chol Calc (Nih) 127 mg/dL High 0-99 Comment: [facility] Metabolic Panel (14), Comprehensive 10/15/2020 [facility] [address] [place] [address] [phone] Glucose 104 mg/dL High 65-99 BUN 9 mg/dL 8-27 Creatinine 0.72 mg/dL 0.57-1.00 eGFR If NonAfricn Am 80 mL/min/1.73 >59 eGFR If Africn Am 93 mL/min/1.73 >59 4 BUN/Creatinine Ratio 13 12-28 Sodium 137 mmol/L 134-144 Potassium 5.0 mmol/L 3.5-5.2 Chloride 101 mmol/L 96-106 Carbon Dioxide, Total 23 mmol/L 20-29 Calcium 9.6 mg/dL 8.7-10.3 Protein, Total 6.5 g/dL 6.0-8.5 Albumin 4.5 g/dL 3.7-4.7 Globulin, Total 2.0 g/dL 1.5-4.5 A/G Ratio 2.3 High 1.2-2.2 Bilirubin, Total 0.5 mg/dL 0.0-1.2 Alkaline Phosphatase 74 IU/L 48-121 Ast (Sgot) 19 IU/L 0-40 Alt (SGPT) 17 IU/L 0-32 1 FULL REPORT IN LAB NOTES (eC W and Medent). SPECIMEN APPEARS CONTAMINATED 2 THERAPUTIC HUMAN INR VALUES INDICATIONS NORMAL RANGES PROPHYLAXIS/TREATMENT OF: VENOUS THROMBOSIS 2.0-3.0 PULMONARY EMBOLISM 2.0-3.0 PREVENTION OF SYSTEMIC EMBOLISM FROM: TISSUE HEART VALVES 2.0-3.0 ACUTE MYOCARDIAL INFARCTION 2.0-3.0 VALVULAR HEART DISEASE 2.0-3.0 ATRIAL FIBRILLATION 2.0-3.0 MECHANICAL VALVES(HIGH RISK) 2.5-3.5 RECURRENT MYOCARDIAL INFARCTION 2.5-3.5 3 Units are mL/min/1.73 m2 Chronic Kidney Disease Staging per NKF: Stage I & II GFR >=60 Normal to Mildly Decreased Stage III GFR 30-59 Moderately Decreased Stage IV GFR 15-29 Severely Decreased Stage V GFR <15 Very Little GFR Left ESRD GFR <15 on HUM[employer] OFFICE MANAGER 4 [facility] currently reports eGFR in compliance with the current recommendations of the National Kidney Foundation. [facility] will update reporting as new guidelines are published from the NKF-ASN Task force. Procedures Date Code Description Status 12/10/2020 77300 Trans Care SRV Aft DC W/I 14D, C omm W/I 2 Dys Med Decs Completed 11/27/2020 07317 Office/Outpatient Established Mo d MDM 30-39 Min Completed 11/27/2020 45896 EKG Interpretation & Report Comp leted 10/09/2020 83920 Office/Outpatient Established Lo w MDM 20-29 Min Completed 12/02/2019 [id number] Mammogram Completed 03/25/2018 [id number] Bone Mineral Density Test Comple maycol 08/17/2015 [id number] Mammogram Completed 04/2011 [id number] Colonoscopy Completed Medical Devices Description No Information Available Encounters Type Date Location Provider Dx Diagnosis Office Visit 12/10/2020 11:00a Main Office Gilma Monsivais M.D. I 10 Essential (primary) hypertension M25.552 Pain in left hip Office Visit 10/09/2020 11:15a Main Office Gilma Monsivais M.D. Z 00.00 Encntr for general adult medical exam w/o abnormal findings I10 Essential (primary) hyperten sara E78.2 Mixed hyperlipidemia Assessments Date Code Description Provider 12/10/2020 I10 Essential (primary) hypertension Gilma Monsivais M.D. 12/10/2020 M25.552 Pain in left hip Gilma Monsivais M.D. 11/27/2020 Z01.818 Encounter for other preprocedura l examination Lucie Randolph, [facility] 11/27/2020 I10 Essential (primary) hypertension Lucie Randolph, [employer] 11/27/2020 E78.2 Mixed hyperlipidemia Sarthak Randolph, [facility] 11/27/2020 M16.12 Unilateral primary osteoarthriti s, left hip PleLucie buenrostro, [employer] 10/09/2020 Z00.00 Encounter for genera l adult medical examination without abnormal findings Gilma Monsivais M.D. 10/09/2020 I10 Essential (primary) hypertension Gilma Monsivais M.D. 10/09/2020 E78.2 Mixed hyperlipidemia Chitra Monisvais M.D. Plan of Treatment Future Appointment(s):* 10/08/2021 11:30 am - Gilma Monsivais M.D. at Main Office 12/10/2020 - Gilma Monsivais M.D.* I10 Essential (primary) hypertension * M25.552 Pain in left hip* Comments:* improved after hip replacement. Continue with therapy and home exercises. * Follow up:* . Goals 12/10/2020 - Gilma Monsivais M.D.* I10 Essential (primary) hypertension* Stay active and continue meds to maintain good blood pressure readings. Functional Status Functional Condition Comment Date Status Independent with all ADL's Activ e Bifocal glasses Active Independent with all IADL's Acti ve Mental Status Mental Condition Comment Date Status None Active Referrals Description No Information Available
--- OUTSIDE RECORDS SUMMARY | 2020-12-20 10:11 | CCD ---
Continuity of Care Document (CCD) Created on: 12/18/2020 Kristyn Bowles External Reference #: [id number] : [id number] Sex: Female Author Author Kristyn LISA MD Organization Unknown Address [address] [facility], [facility] [place] [address] Phone [phone] Care Team Providers Care Silk Screen Frame Assembler Name Role Phone Gilma Banks M.D. AUTM [phone] AUTM Unavailable Problems Active Problems Provider Date [...] Available Procedures Date Code Description Status 12/04/2020 66807 Arthroplasty Hip Total Completed 10/16/2020 21607 Office/Outpatient Established Mo d MDM 30-39 Min Completed 08/16/2020 12527 Office/Outpatient Established Mo d MDM 30-39 Min Completed 08/01/2020 95844 Office/Outpatient New Moderate M DM 45-59 Minutes Completed Medical Devices Description No Information Available Encounters Type Date Location Provider Dx Diagnosis Office Visit 10/16/2020 1:00p [facility] Khadar Lisa MD M16.12 Unilateral primary osteoarthritis, left hip Office Visit 08/16/2020 2:30p [facility] Khadar Lisa MD M16.12 Unilateral primary osteoarthritis, left hip Office Visit 08/01/2020 2:00p 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 Small at [facility]. 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 Comment: Hematology/oncology consultation is recommended. Created [facility] Medical Oncology & Hematology [address] [place] [address] [phone]
--- OUTSIDE RECORDS SUMMARY | 2020-12-20 10:12 | CCD | Continuity of Care Document ---
Author Author Kristyn RENO RECOATING MACHINE OPERATOR Organization Unknown Address [address] [place] [address] Phone [phone] Care Team Providers Care [place] [employer] Group Leader Name Role Phone Renetta MAHMOOD.Tereso AUTM [phone] Mario Contreras MD AUTM [phone] [facility] Gastro - Gastroenterology AUTM [facility] Nurse Practitioners - Dermatology AUTM [phone] Problems Active Problems Provider Date Essential hypertension Nguyen Alex RPA-C Onset: 06/11 Mixed hyperlipidemia Nguyen Alex RPA-C Onset: 012 Social History Type Date Description Comments Sex Unknown Tobacco Use Start: Unknown Never Used Smokeless Tobacco ETOH Use Occasionally consumes alcohol Tobacco Use Start: Unknown Patient has never smoked Recreational Drug Use Denies Drug Use Exercise Type/Frequency Exercises regularly Tattoo/Piercing Pierced ears [...] morning for blood pressure 90tabs I10 Gilma Banks M.D. 06/07/2010 Immunizations CPT Code Status Date Vaccine Lot # [id number] Given 05/14/2020 Moderna Sars-(Co vid-19) vaccine, mRNA, LNP-S, PF, 100 mcg/ 0.5 mL 33783 Given 04/12/2020 Moderna Sars-(Co vid-19) vaccine, mRNA, LNP-S, PF, 100 mcg/ 0.5 mL 75159 Given 12/22/2017 Influenza Virus Vaccine, Oliver drivalent,multidose vial 06071 Given 03/10/2017 Boostrix (Tdap) Tetnus, Diphtheria Toxoids & Acellular Pertussis [id number] 56760 Given 12/10/2016 Influenza Vaccination 51057 Given 01/23/2016 Influenza Vaccination 45842 Given 08/24/2014 Prevnar 13 [id number] 51671 Given 12/02/2013 Influenza Vaccination 86932 Given 08/25/2013 Zostavax 15722 Given 02/10/2013 Influenza Vaccination 33971 Given 01/23/2012 Pneumococcal Vaccine [id number] 92431 Given 01/23/2012 Influenza Vaccination/preser vative free [id number] Q2038 Given 12/10/2010 Influenza Vaccine (Fluzone)( medicare) 17449 Given 12/10/2010 Influenza Vaccination [id number] Vital Signs Date Vital Result Comment 10/09/2020 11:18am BP Systolic 189 mmHg BP Diastolic 95 mmHg BP Systolic Recheck 124 mmHg BP Diastolic Recheck 84 mmHg Heart Rate 89 /min Body Temperature 98.0 F Respiratory Rate 16 /min Height 63 inches 5'3" Weight 137.25 lb O2 % BldC Oximetry 97 % Peak Expiratory Flow Rate 299 Estimated Peak Flow Rate [place] Body Weight 115 lb BMI (Body Mass Index) 24.3 kg/m2 10/11/2019 1:31pm BP Systolic 176 mmHg BP Diastolic 93 mmHg BP Systolic Recheck 164 mmHg BP Diastolic Recheck 84 mmHg Heart Rate 78 /min Body Temperature 97.7 F Respiratory Rate 18 /min Height 63 inches 5'3" Weight 138.50 lb O2 % BldC Oximetry 92 % Peak Expiratory Flow Rate 301 Estimated Peak Flow Rate [place] Body Weight 115 lb BMI (Body Mass Index) 24.5 kg/m2 Results Test Acquired Date Facility Test Result H/L Range Note Ua Routine 11/27/2020 [facility] nter [phone] Appearance, Urine CLEAR Normal Clear Color, Urine STRAW Normal Yellow PH,Urine 6.0 units Normal 5.0-9.0 Specific [place] Urine Auto 1.004 Normal 1.002-1.035 Protein, Urine [...] Cast, Urine Auto 0 /LPF Normal 0-1 PT & Aptt 11/27/2020 [place] [address] [phone] Prothrombin Time 12.7 seconds Normal 12.7-14.5 Inr 0.91 Normal 1 Partial Thromboplastin Time 27.0 seconds Normal 25.9-37.0 Comprehensive Metabolic Profil 11/27/[address] [place] [address] [phone] Glucose, Fasting 89 mg/dL Normal 70-100 Blood Urea Nitrogen 12 mg/dL Normal 7-18 Creatinine For GFR 0.70 mg/dL Normal 0.55-1.30 Glomerular Filtration Rate > 60.0 Normal >39 2 Sodium Level 138 mEq/L Normal 136-145 Potassium [...] CBC With Differential 11/27/2020 [place] [address] [phone] White Blood Count 6.3 10 Normal 4.0-10.0 [...] 36.0-66.0 Lymph % 26.9 % Normal 24.0-44.0 [place] % 6.6 % Normal 2.0-8.0 Eos % 0.8 % Normal 0.0-3.0 Baso % 0.5 % Normal 0.0-1.0 Immature Granulocyte % 0.5 % Normal 0-3.0 Nucleated Red Blood Cell % 0.0 % Normal 0-0 Neutrophils # 4.1 10 Normal 1.5-8.5 Lymph # 1.7 10 Normal 1.5-5.0 [place] # 0.4 10 Normal 0.0-0.8 Eos # 0.1 10 Normal 0.0-0.5 Baso # 0.0 10 Normal 0.0-0.2 CBC With Differential 10/15/[address] [facility] [address] [place] [address] [phone] WBC 5.6 x10E3/uL 3.4-10.8 RBC 4.57 x10E6/uL [...] Immature Grans (Abs) 0.0 x10E3/uL 0.0-0.1 NRBC [facility] Hematology Comments: [facility] Lipid Panel 10/15/2020 [facility] [address] [place], [place] [id number] [phone] Cholesterol, Total 242 mg/dL High 100-199 Triglycerides 64 mg/dL 0-149 HDL Cholesterol 104 mg/dL >39 VLDL Cholesterol Humza 11 mg/dL 5-40 LDL Chol Calc (Nih) 127 mg/dL High 0-99 Comment: [facility] Metabolic Panel (14), Comprehensive 10/15/2020 [facility] [address] [place] [address] [phone] Glucose 104 mg/dL High 65-99 BUN 9 mg/dL 8-27 Creatinine 0.72 mg/dL 0.57-1.00 eGFR If NonAfricn Am 80 mL/min/1.73 >59 eGFR If Africn Am 93 mL/min/1.73 >59 3 BUN/Creatinine Ratio 13 12-28 Sodium 137 mmol/L [...] 0-40 Alt (SGPT) 17 IU/L 0-32 1 THERAPUTIC HUMAN INR VALUES INDICATIONS NORMAL RANGES PROPHYLAXIS/TREATMENT OF: VENOUS THROMBOSIS 2.0-3.0 PULMONARY EMBOLISM 2.0-3.0 PREVENTION OF SYSTEMIC EMBOLISM FROM: TISSUE HEART VALVES 2.0-3.0 ACUTE MYOCARDIAL INFARCTION 2.0-3.0 VALVULAR HEART DISEASE 2.0-3.0 ATRIAL FIBRILLATION 2.0-3.0 MECHANICAL VALVES(HIGH RISK) 2.5-3.5 RECURRENT MYOCARDIAL INFARCTION 2.5-3.5 2 Units are mL/min/1.73 m2 Chronic Kidney Disease Staging per NKF: Stage I & II GFR >=60 Normal to Mildly Decreased Stage III GFR 30-59 Moderately Decreased Stage IV GFR 15-29 Severely Decreased Stage V GFR <15 Very Little GFR Left ESRD GFR <15 on PRINT GRAPHIC DESIGNER 3 [facility] currently reports eGFR in compliance with the current recommendations of the National Kidney Foundation. [facility] will update reporting as new guidelines are published from the NKF-ASN Task force. Procedures Date Code Description Status 10/09/2020 96297 Office/Outpatient Established Lo w MDM 20-29 Min Completed 12/02/2019 [id number] Mammogram Completed 03/25/2018 [id number] Bone Mineral Density Test Comple maycol 08/17/2015 [id number] Mammogram Completed 04/2011 [id number] Colonoscopy Completed Medical Devices Description No Information Available Encounters Type Date Location Provider Dx Diagnosis Office Visit 10/09/2020 11:15a Main Office Gilma Banks M.D. Z 00.00 Encntr for general adult medical exam w/o abnormal findings I10 Essential (primary) hyperten sara E78.2 Mixed hyperlipidemia Assessments Date Code Description Provider 10/09/2020 Z00.00 Encounter for genera l adult medical examination without abnormal findings Gilma Banks M.D. 10/09/2020 I10 Essential (primary) hypertension Gilma Banks M.D. 10/09/2020 E78.2 Mixed hyperlipidemia Chitra Banks M.D. Plan of Treatment Future Appointment(s):* 10/08/2021 11:30 am - Gilma Banks M.D. at Main Office 10/09/2020 - Gilma Banks M.D.* Z00.00 Encounter for general adult medical examination without abnormal findings* Comments:* RHM current. * Follow up:* annually and as needed * I10 Essential (primary) hypertension* Comments:* BP elevated here but better out of the office. Will follow her up annually and then schedule pre-op when she has a surgery date. * E78.2 Mixed hyperlipidemia Goals 10/09/2020 - Gilma Banks M.D.* I10 Essential (primary) hypertension* Blood Pressure not to goal. Monitor it out of the office and bring a list of readings to the follow up appointment. Notify the office if Blood pressure is consistently higher than 140/90. Functional Status Functional Condition Comment Date Status Independent with all ADL's Activ e Bifocal glasses Active Independent with all IADL's Acti ve Mental Status Mental Condition Comment Date Status None Active Referrals Description No Information Available
--- OUTSIDE RECORDS SUMMARY | 2020-12-20 10:12 | CCD | Continuity of Care Document ---
Author Author Kristyn RANDOLPH PHOTOENGRAVER APPRENTICE Organization Unknown Address [address] [place] [address] Phone [phone] Care Team Providers Care Radiology Equipment Servicer Name Role Phone Renetta MAHMOOD.Tereso AUTM [phone] Mario Contreras MD AUTM [phone] [facility] [place] Gastro - Gastroenterology AUTM [phone] [facility] Nurse Practitioners - Dermatology AUTM [phone] Problems Active Problems Provider Date Essential hypertension [...] CPT Code Status Date Vaccine Lot # [id number] Given 05/14/2020 Moderna Sars-(Co vid-19) vaccine, mRNA, LNP-S, PF, 100 mcg/ 0.5 mL 47589 Given 04/12/2020 Moderna Sars-(Co vid-19) vaccine, mRNA, LNP-S, PF, 100 mcg/ 0.5 mL 05120 Given 12/22/2017 Influenza Virus Vaccine, Oliver drivalent,multidose vial 37231 Given 03/10/2017 Boostrix (Tdap) Tetnus, Diphtheria Toxoids & Acellular Pertussis [id number] 61144 Given 12/10/2016 Influenza Vaccination 29550 Given 01/23/2016 Influenza Vaccination 36771 Given 08/24/2014 Prevnar 13 [id number] 01910 Given 12/02/2013 Influenza Vaccination 57335 Given 08/25/2013 Zostavax 98182 Given 02/10/2013 Influenza Vaccination 59482 Given 01/23/2012 Pneumococcal Vaccine [id number] 52741 Given 01/23/2012 Influenza Vaccination/preser vative free [id number] Q2038 Given 12/10/2010 Influenza Vaccine (Fluzone)( medicare) 54401 Given 12/10/2010 Influenza Vaccination [id number] Vital Signs Date Vital Result Comment 10/09/2020 11:18am BP Systolic 189 mmHg BP Diastolic 95 mmHg BP Systolic Recheck 124 mmHg BP Diastolic Recheck 84 mmHg Heart Rate 89 /min Body Temperature 98.0 F Respiratory Rate 16 /min Height 63 inches 5'3" Weight 137.25 lb O2 % BldC Oximetry 97 % Peak Expiratory Flow Rate 299 Estimated Peak Flow Rate [place] Body Weight 115 lb BMI (Body Mass [...] Flow Rate 301 Estimated Peak Flow Rate [place] Body Weight 115 lb BMI (Body Mass Index) 24.5 kg/m2 Results Test Acquired Date Facility Test Result H/L Range Note Ua Routine 11/27/2020 [facility] nter [phone] Appearance, Urine CLEAR Normal Clear Color, Urine STRAW Normal Yellow PH,Urine 6.0 units Normal 5.0-9.0 Specific [place] Urine Auto 1.004 Normal 1.002-1.035 Protein, Urine [...] /LPF Normal 0-1 Laboratory test finding 11/27/2020 [facility] [phone] Urine Culture FULL REPORT IN L <SEE NOTE> Normal 1 PT & Aptt 11/27/2020 [place] [address] [phone] Prothrombin Time 12.7 seconds Normal 12.7-14.5 Inr 0.91 Normal 2 Partial Thromboplastin Time 27.0 seconds Normal 25.9-37.0 Comprehensive Metabolic Profil 11/27/[address] [place] [address] [phone] Glucose, Fasting 89 mg/dL Normal 70-100 Blood [...] With Differential 11/27/2020 [place] [address] [phone] White Blood Count 6.3 10 Normal 4.0-10.0 [...] 36.0-66.0 Lymph % 26.9 % Normal 24.0-44.0 [place] % 6.6 % Normal 2.0-8.0 Eos % 0.8 % Normal 0.0-3.0 Baso % 0.5 % Normal 0.0-1.0 Immature Granulocyte % 0.5 % Normal 0-3.0 Nucleated Red Blood Cell % 0.0 % Normal 0-0 Neutrophils # 4.1 10 Normal 1.5-8.5 Lymph # 1.7 10 Normal 1.5-5.0 [place] # 0.4 10 Normal 0.0-0.8 Eos # 0.1 10 Normal 0.0-0.5 Baso # 0.0 10 Normal 0.0-0.2 CBC With Differential 10/15/2020 [facility] [address] [place] [address] [phone] WBC 5.6 x10E3/uL 3.4-10.8 RBC 4.57 x10E6/uL [...] Immature Grans (Abs) 0.0 x10E3/uL 0.0-0.1 NRBC [facility] Hematology Comments: [facility] Lipid Panel 10/15/2020 [facility] [address] [place], [place] [address] [phone] Cholesterol, Total 242 mg/dL High 100-199 Triglycerides 64 mg/dL 0-149 HDL Cholesterol 104 mg/dL >39 VLDL Cholesterol Humza 11 mg/dL 5-40 LDL Chol Calc (Nih) 127 mg/dL High 0-99 Comment: [facility] Metabolic Panel (14), Comprehensive 10/15/2020 [facility] [address] [place], [place] [id number] [phone] Glucose 104 mg/dL High 65-99 BUN 9 [...] Little GFR Left ESRD GFR <15 on ELECTRIC REPAIR SUPERVISOR 4 [facility] currently reports eGFR in compliance with the current recommendations of the National Kidney Foundation. [facility] will update reporting as new guidelines are published from the NKF-ASN Task force. Procedures Date Code Description Status 11/27/2020 13347 Office/Outpatient Established Mo d MDM 30-39 Min Completed 10/09/2020 20412 Office/Outpatient Established Lo w MDM 20-29 Min Completed 12/02/2019 [id number] Mammogram Completed 03/25/2018 [id number] Bone Mineral Density Test Comple maycol 08/17/2015 [id number] Mammogram Completed 04/2011 [id number] Colonoscopy Completed Medical Devices Description No Information Available Encounters Type Date Location Provider Dx Diagnosis Office Visit 11/27/2020 2:30p Main Office Lucie Randolph FNP Z01.8 18 Encounter for other preprocedural examination I10 Essential (primary) hyperten sara E78.2 Mixed hyperlipidemia M16.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 Z 00.00 Encntr for general adult medical exam w/o abnormal findings I10 Essential (primary) hyperten sara E78.2 Mixed hyperlipidemia Assessments Date Code Description Provider 11/27/2020 Z01.818 Encounter for other preprocedura l examination Lucie Randolph FNP 11/27/2020 I10 Essential (primary) hypertension Lucie Randolph, ASIM 11/27/2020 E78.2 Mixed hyperlipidemia Sarthak Randolph, ASIM 11/27/2020 M16.12 Unilateral primary osteoarthriti s, left hip Lucie Randolph, PHOTOENGRAVER APPRENTICE 10/09/2020 Z00.00 Encounter for genera l adult medical examination without abnormal findings Gilma Banks M.D. 10/09/2020 I10 Essential (primary) hypertension Gilma Banks M.D. 10/09/2020 E78.2 Mixed hyperlipidemia Chitra Banks M.D. Plan of Treatment Future Appointment(s):* 10/08/2021 11:30 am - Gilma Banks M.D. at Main Office 11/27/2020 - Lucie Randolph FNP* Z01.818 Encounter for other preprocedural examination* Comments:* labs and EKG are stablePatient is medically optimized for the planned procedure. * I10 Essential (primary) hypertension* Comments:* controlled, continue current medications * E78.2 Mixed hyperlipidemia * M16.12 Unilateral primary osteoarthritis, left hip* Comments:* scheduled for arthroplasty Functional Status Functional Condition Comment Date Status Independent with all ADL's Activ e Bifocal glasses Active Independent with all IADL's Acti ve Mental Status Mental Condition Comment Date Status None Active Referrals Description No Information Available
--- OUTSIDE RECORDS SUMMARY | 2020-12-20 10:12 | CCD | Continuity of Care Document ---
Author Author Kristyn MONSIVAIS M.D. Organization Unknown Address [address] [place] [address] Phone [phone] Care Team Providers Care Client Service Associate Name Role Phone Renetta MAHMOOD.Tereso AUTM [phone] Mario Contreras MD AUTM [phone] [facility] Gastro - Gastroenterology AUTM [facility] Nurse Practitioners - Dermatology AUTM [phone] Problems Active Problems Provider Date Essential hypertension [...] CPT Code Status Date Vaccine Lot # [id number] Given 05/14/2020 Moderna Sars-(Co vid-19) vaccine, mRNA, LNP-S, PF, 100 mcg/ 0.5 mL 25983 Given 04/12/2020 Moderna Sars-(Co vid-19) vaccine, mRNA, LNP-S, PF, 100 mcg/ 0.5 mL 77425 Given 12/22/2017 Influenza Virus Vaccine, Oliver drivalent,multidose vial 63297 Given 03/10/2017 Boostrix (Tdap) Tetnus, Diphtheria Toxoids & Acellular Pertussis TB2R2 26189 Given 12/10/2016 Influenza Vaccination 03975 Given 01/23/2016 Influenza Vaccination 73791 Given 08/24/2014 Prevnar 13 [id number] 12660 Given 12/02/2013 Influenza Vaccination 17039 Given 08/25/2013 Zostavax 58781 Given 02/10/2013 Influenza Vaccination 51043 Given 01/23/2012 Pneumococcal Vaccine [id number] 77779 Given 01/23/2012 Influenza Vaccination/preser vative free [id number] Q2038 Given 12/10/2010 Influenza Vaccine (Fluzone)( medicare) 84819 Given 12/10/2010 Influenza Vaccination [id number] Vital Signs Date Vital Result Comment 12/10/2020 11:00am BP Systolic 159 mmHg BP Diastolic 72 mmHg BP Systolic Recheck 133 mmHg BP Diastolic Recheck 66 mmHg Heart Rate 100 /min Body Temperature 97.0 F Respiratory Rate 18 /min Height 63 inches 5'3" Weight 135.00 lb O2 % BldC Oximetry 98 % Peak Expiratory Flow Rate 306 Estimated Peak Flow Rate [place] Body Weight 115 lb BMI (Body Mass [...] Flow Rate 299 Estimated Peak Flow Rate [place] Body Weight 115 lb BMI (Body Mass Index) 24.3 kg/m2 Results Test Acquired Date Facility Test Result H/L Range Note Ua Routine 11/27/2020 [facility] [phone] Appearance, Urine CLEAR Normal Clear Color, Urine STRAW Normal Yellow PH,Urine 6.0 units Normal 5.0-9.0 Specific [place] Urine Auto 1.004 Normal 1.002-1.035 Protein, Urine [...] /LPF Normal 0-1 Laboratory test finding 11/27/2020 [facility] [phone] Urine Culture FULL REPORT IN L <SEE NOTE> Normal 1 PT & Aptt 11/27/2020 [place] [address] [phone] Prothrombin Time 12.7 seconds Normal 12.7-14.5 Inr 0.91 Normal 2 Partial Thromboplastin Time 27.0 seconds Normal 25.9-37.0 Comprehensive Metabolic Profil 11/27/[address] [place] [address] [phone] Glucose, Fasting 89 mg/dL Normal 70-100 Blood [...] CBC With Differential 11/27/2020 Patient Service [place], [place] [address] [phone] White Blood Count 6.3 10 Normal 4.0-10.0 [...] 36.0-66.0 Lymph % 26.9 % Normal 24.0-44.0 [place] % 6.6 % Normal 2.0-8.0 Eos % 0.8 % Normal 0.0-3.0 Baso % 0.5 % Normal 0.0-1.0 Immature Granulocyte % 0.5 % Normal 0-3.0 Nucleated Red Blood Cell % 0.0 % Normal 0-0 Neutrophils # 4.1 10 Normal 1.5-8.5 Lymph # 1.7 10 Normal 1.5-5.0 [place] # 0.4 10 Normal 0.0-0.8 Eos # 0.1 10 Normal 0.0-0.5 Baso # 0.0 10 Normal 0.0-0.2 CBC With Differential 10/15/2020 [facility] [address] [place] [address] [phone] WBC 5.6 x10E3/uL 3.4-10.8 RBC 4.57 x10E6/uL [...] Immature Grans (Abs) 0.0 x10E3/uL 0.0-0.1 NRBC [facility] Hematology Comments: [facility] Lipid Panel 10/15/2020 [facility] [address] [place], [place] [address] [phone] Cholesterol, Total 242 mg/dL High 100-199 Triglycerides 64 mg/dL 0-149 HDL Cholesterol 104 mg/dL >39 VLDL Cholesterol Humza 11 mg/dL 5-40 LDL Chol Calc (Nih) 127 mg/dL High 0-99 Comment: [facility] Metabolic Panel (14), Comprehensive 10/15/2020 [facility] [address] [place] [address] [phone] Glucose 104 mg/dL High 65-99 BUN 9 [...] Little GFR Left ESRD GFR <15 on LICENSED TAX CONSULTANT 4 [facility] currently reports eGFR in compliance with the current recommendations of the National Kidney Foundation. [facility] will update reporting as new guidelines are published from the NKF-ASN Task force. Procedures Date Code Description Status 11/27/2020 09191 Office/Outpatient Established Mo d MDM 30-39 Min Completed 11/27/2020 89593 EKG Interpretation & Report Comp leted 10/09/2020 72385 Office/Outpatient Established Lo w MDM 20-29 Min Completed 12/02/2019 [id number] Mammogram Completed 03/25/2018 [id number] Bone Mineral Density Test Comple maycol 08/17/2015 [id number] Mammogram Completed 04/2011 [id number] Colonoscopy Completed Medical Devices Description No Information [...] for other preprocedura l examination Lucie Randolph, [facility] 11/27/2020 I10 Essential (primary) hypertension Lucie Randolph, [facility] 11/27/2020 E78.2 Mixed hyperlipidemia Sarthak Randolph, [facility] 11/27/2020 M16.12 Unilateral primary osteoarthriti s, left hip Lucie Randolph, [facility] 10/09/2020 Z00.00 Encounter for genera l adult medical examination without abnormal findings Gilma Monsivais M.D. 10/09/2020 I10 Essential (primary) hypertension Gilma Monsivais M.D. 10/09/2020 E78.2 Mixed hyperlipidemia Chitra Monsivais M.D. Plan of Treatment Future Appointment(s):* 10/08/2021 11:30 am - Gilma Monsivais M.D. at Main Office 12/10/2020 - Gilma Monsivais M.D.* I10 Essential (primary) hypertension * M25.552 Pain in left hip* Follow up:* . Functional Status Functional Condition Comment Date Status Independent with all ADL's Activ e Bifocal glasses Active Independent with all IADL's Acti ve Mental Status Mental Condition Comment Date Status None Active Referrals Description No Information Available
--- OUTSIDE RECORDS SUMMARY | 2020-12-20 10:12 | CCD | Continuity of Care Document ---
Author Author Kristyn RANDOLPH DINKEY ENGINE OPERATOR Organization Unknown Address [address] [place] [address] Phone [phone] Care Team Providers Care Subject Scientific Research Name Role Phone Renetta MAHMOOD.Tereso AUTM [phone] Mario Contreras MD AUTM [phone] [facility] Gastro - Gastroenterology AUTM [phone] [facility] Nurse Practitioners - Dermatology AUTM [phone] Problems Active Problems Provider Date Essential hypertension [...] CPT Code Status Date Vaccine Lot # [id number] Given 05/14/2020 Moderna Sars-(Co vid-19) vaccine, mRNA, LNP-S, PF, 100 mcg/ 0.5 mL 18034 Given 04/12/2020 Moderna Sars-(Co vid-19) vaccine, mRNA, LNP-S, PF, 100 mcg/ 0.5 mL 89872 Given 12/22/2017 Influenza Virus Vaccine, Oliver drivalent,multidose vial 18959 Given 03/10/2017 Boostrix (Tdap) Tetnus, Diphtheria Toxoids & Acellular Pertussis TB2R2 88439 Given 12/10/2016 Influenza Vaccination 22577 Given 01/23/2016 Influenza Vaccination 71326 Given 08/24/2014 Prevnar 13 [id number] 47689 Given 12/02/2013 Influenza Vaccination 67592 Given 08/25/2013 Zostavax 90903 Given 02/10/2013 Influenza Vaccination 90207 Given 01/23/2012 Pneumococcal Vaccine [id number] 41247 Given 01/23/2012 Influenza Vaccination/preser vative free [id number] Q2038 Given 12/10/2010 Influenza Vaccine (Fluzone)( medicare) 60380 Given 12/10/2010 Influenza Vaccination [id number] C Vital Signs Date Vital Result Comment 10/09/2020 11:18am BP Systolic 189 mmHg BP Diastolic 95 mmHg BP Systolic Recheck 124 mmHg BP Diastolic Recheck 84 mmHg Heart Rate 89 /min Body Temperature 98.0 F Respiratory Rate 16 /min Height 63 inches 5'3" Weight 137.25 lb O2 % BldC Oximetry 97 % Peak Expiratory Flow Rate 299 Estimated Peak Flow Rate [place] Body Weight 115 lb BMI (Body Mass [...] Flow Rate 301 Estimated Peak Flow Rate [place] Body Weight 115 lb BMI (Body Mass Index) 24.5 kg/m2 Results Test Acquired Date Facility Test Result H/L Range Note Ua Routine 11/27/2020 [facility] nter [phone] Appearance, Urine CLEAR Normal Clear Color, Urine STRAW Normal Yellow PH,Urine 6.0 units Normal 5.0-9.0 Specific [place] Urine Auto 1.004 Normal 1.002-1.035 Protein, Urine [...] 0-1 PT & Aptt 11/27/2020 [place] [address] [phone] Prothrombin Time 12.7 seconds Normal 12.7-14.5 Inr 0.91 Normal 1 Partial Thromboplastin Time 27.0 seconds Normal 25.9-37.0 Comprehensive Metabolic Profil 11/27/[address] [place] [address] [phone] Glucose, Fasting 89 mg/dL Normal 70-100 Blood [...] With Differential 11/27/2020 [place] [address] [phone] White Blood Count 6.3 10 Normal 4.0-10.0 [...] 36.0-66.0 Lymph % 26.9 % Normal 24.0-44.0 [place] % 6.6 % Normal 2.0-8.0 Eos % 0.8 % Normal 0.0-3.0 Baso % 0.5 % Normal 0.0-1.0 Immature Granulocyte % 0.5 % Normal 0-3.0 Nucleated Red Blood Cell % 0.0 % Normal 0-0 Neutrophils # 4.1 10 Normal 1.5-8.5 Lymph # 1.7 10 Normal 1.5-5.0 [place] # 0.4 10 Normal 0.0-0.8 Eos # 0.1 10 Normal 0.0-0.5 Baso # 0.0 10 Normal 0.0-0.2 CBC With Differential 10/15/[address] [facility] [address] [place] [address] [phone] WBC 5.6 x10E3/uL 3.4-10.8 RBC 4.57 x10E6/uL [...] Immature Grans (Abs) 0.0 x10E3/uL 0.0-0.1 NRBC [facility] Hematology Comments: [facility] Lipid Panel 10/15/2020 [facility] [address] [place], [place] [address] [phone] Cholesterol, Total 242 mg/dL High 100-199 Triglycerides 64 mg/dL 0-149 HDL Cholesterol 104 mg/dL >39 VLDL Cholesterol Humza 11 mg/dL 5-40 LDL Chol Calc (Nih) 127 mg/dL High 0-99 Comment: [facility] Metabolic Panel (14), Comprehensive 10/15/2020 [facility] [address] [place] [address] [phone] Glucose 104 mg/dL High 65-99 BUN 9 [...] GFR Left ESRD GFR <15 on ELECTRIC MOTOR REPAIRING SUPERVISOR 3 [facility] currently reports eGFR in compliance with the current recommendations of the National Kidney Foundation. [facility] will update reporting as new guidelines are published from the NKF-ASN Task force. Procedures Date Code Description Status 11/27/2020 08983 Office/Outpatient Established Mo d MDM 30-39 Min Completed 10/09/2020 50343 Office/Outpatient Established Lo w MDM 20-29 Min Completed 12/02/2019 [id number] Mammogram Completed 03/25/2018 [id number] Bone Mineral Density Test Comple maycol 08/17/2015 [id number] Mammogram Completed 04/2011 [id number] Colonoscopy Completed Medical Devices Description No Information Available Encounters Type Date Location Provider Dx Diagnosis Office Visit 11/27/2020 2:30p Main Office Lucie Randolph FNP Z01.8 18 Encounter for other preprocedural examination I10 Essential (primary) hyperten sara E78.2 Mixed hyperlipidemia Office Visit 10/09/2020 11:15a Main Office Gilma Banks M.D. Z 00.00 Encntr for general adult medical exam w/o abnormal findings I10 Essential (primary) hyperten sara E78.2 Mixed hyperlipidemia Assessments Date Code Description Provider 11/27/2020 Z01.818 Encounter for other preprocedura l examination Lucie Randolph FNP 11/27/2020 I10 Essential (primary) hypertension Lucie Randolph FNP 11/27/2020 E78.2 Mixed hyperlipidemia Sarthak Randolph FNP 10/09/2020 Z00.00 Encounter for genera l adult [...] continue current medications * E78.2 Mixed hyperlipidemia Functional Status Functional Condition Comment Date Status Independent with all ADL's Activ e Bifocal glasses Active Independent with all IADL's Acti ve Mental Status Mental Condition Comment Date Status None Active Referrals Description No Information Available
--- OUTSIDE RECORDS SUMMARY | 2020-12-20 10:12 | CCD | Continuity of Care Document ---
Author Author Kristyn RANDOLPH SHREDDER/GRANULATOR OPERATOR Organization Unknown Address [address] [place] [address] Phone [phone] Care Team Providers Care Blind Installer Name Role Phone Renetta MAHMOOD.Tereso AUTM [phone] Mario Contreras MD AUTM [phone] [facility] Gastro - Gastroenterology AUTM [phone] [facility] Nurse Practitioners - Dermatology AUTM [phone] Problems Active Problems Provider Date Essential hypertension [...] CPT Code Status Date Vaccine Lot # [id number] Given 05/14/2020 Moderna Sars-(Co vid-19) vaccine, mRNA, LNP-S, PF, 100 mcg/ 0.5 mL 40442 Given 04/12/2020 Moderna Sars-(Co vid-19) vaccine, mRNA, LNP-S, PF, 100 mcg/ 0.5 mL 78325 Given 12/22/2017 Influenza Virus Vaccine, Oliver drivalent,multidose vial 05302 Given 03/10/2017 Boostrix (Tdap) Tetnus, Diphtheria Toxoids & Acellular Pertussis [id number] 72830 Given 12/10/2016 Influenza Vaccination 03299 Given 01/23/2016 Influenza Vaccination 98434 Given 08/24/2014 Prevnar 13 [id number] 49749 Given 12/02/2013 Influenza Vaccination 20222 Given 08/25/2013 Zostavax 93260 Given 02/10/2013 Influenza Vaccination 61212 Given 01/23/2012 Pneumococcal Vaccine [id number] 37319 Given 01/23/2012 Influenza Vaccination/preser vative free [id number] Q2038 Given 12/10/2010 Influenza Vaccine (Fluzone)( medicare) 48632 Given 12/10/2010 Influenza Vaccination [id number] C Vital Signs Date Vital Result Comment 10/09/2020 11:18am BP Systolic 189 mmHg BP Diastolic 95 mmHg BP Systolic Recheck 124 mmHg BP Diastolic Recheck 84 mmHg Heart Rate 89 /min Body Temperature 98.0 F Respiratory Rate 16 /min Height 63 inches 5'3" Weight 137.25 lb O2 % BldC Oximetry 97 % Peak Expiratory Flow Rate 299 Estimated Peak Flow Rate [place] Body Weight 115 lb BMI (Body Mass [...] Flow Rate 301 Estimated Peak Flow Rate [place] Body Weight 115 lb BMI (Body Mass Index) 24.5 kg/m2 Results Test Acquired Date Facility Test Result H/L Range Note Ua Routine 11/27/2020 [facility] nter [phone] Appearance, Urine CLEAR Normal Clear Color, Urine STRAW Normal Yellow PH,Urine 6.0 units Normal 5.0-9.0 Specific [place] Urine Auto 1.004 Normal 1.002-1.035 Protein, Urine [...] 0-1 PT & Aptt 11/27/2020 [place] [address] [phone] Prothrombin Time 12.7 seconds Normal 12.7-14.5 Inr 0.91 Normal 1 Partial Thromboplastin Time 27.0 seconds Normal 25.9-37.0 Comprehensive Metabolic Profil 11/27/[address] [place] [address] [phone] Glucose, Fasting 89 mg/dL Normal 70-100 Blood [...] With Differential 11/27/2020 [place] [address] [phone] White Blood Count 6.3 10 Normal 4.0-10.0 [...] 36.0-66.0 Lymph % 26.9 % Normal 24.0-44.0 [place] % 6.6 % Normal 2.0-8.0 Eos % 0.8 % Normal 0.0-3.0 Baso % 0.5 % Normal 0.0-1.0 Immature Granulocyte % 0.5 % Normal 0-3.0 Nucleated Red Blood Cell % 0.0 % Normal 0-0 Neutrophils # 4.1 10 Normal 1.5-8.5 Lymph # 1.7 10 Normal 1.5-5.0 [place] # 0.4 10 Normal 0.0-0.8 Eos # 0.1 10 Normal 0.0-0.5 Baso # 0.0 10 Normal 0.0-0.2 CBC With Differential 10/15/[address] [facility] [address] [place] [address] [phone] WBC 5.6 x10E3/uL 3.4-10.8 RBC 4.57 x10E6/uL [...] Immature Grans (Abs) 0.0 x10E3/uL 0.0-0.1 NRBC [facility] Hematology Comments: [facility] Lipid Panel 10/15/2020 [facility] [address] [place], [place] [address] [phone] Cholesterol, Total 242 mg/dL High 100-199 Triglycerides 64 mg/dL 0-149 HDL Cholesterol 104 mg/dL >39 VLDL Cholesterol Humza 11 mg/dL 5-40 LDL Chol Calc (Nih) 127 mg/dL High 0-99 Comment: [facility] Metabolic Panel (14), Comprehensive 10/15/2020 [facility] [address] [place] [address] [phone] Glucose 104 mg/dL High 65-99 BUN 9 [...] Little GFR Left ESRD GFR <15 on ELECTRICAL TECH/PROJECT MANAGER 3 [facility] currently reports eGFR in compliance with the current recommendations of the National Kidney Foundation. [facility] will update reporting as new guidelines are published from the NKF-ASN Task force. Procedures Date Code Description Status 11/27/2020 27915 Office/Outpatient Established Mo d MDM 30-39 Min Completed 10/09/2020 89732 Office/Outpatient Established Lo w MDM 20-29 Min Completed 12/02/2019 [id number] Mammogram Completed 03/25/2018 [id number] Bone Mineral Density Test Comple maycol 08/17/2015 [id number] Mammogram Completed 04/2011 [id number] Colonoscopy Completed Medical Devices Description No Information [...] 11/27/2020 E78.2 Mixed hyperlipidemia Sarthak Randolph FNP 11/27/2020 M16.12 Unilateral primary osteoarthriti s, left hip Pleskach, Lucie, SHREDDER/GRANULATOR OPERATOR 10/09/2020 Z00.00 Encounter for genera l adult [...]
--- OUTSIDE RECORDS SUMMARY | 2020-12-20 10:12 | CCD | Continuity of Care Document ---
Author Author Kristyn MONSIVAIS M.D. Organization Unknown Address [address] [place] [address] Phone [phone] Care Team Providers Care Fur Finisher Name Role Phone Renetta MAHMOOD.Tereso AUTM [phone] Mario Contreras MD AUTM [phone] [facility] Gastro - Gastroenterology AUTM [phone] [facility] Nurse Practitioners - Dermatology AUTM [phone] Problems Active Problems Provider Date Essential hypertension [...] pressure 90tabs I10 Gilma Monsivais M.D. 06/07/2010 Immunizations CPT Code Status Date Vaccine Lot # [id number] Given 05/14/2020 Moderna Sars-(Co vid-19) vaccine, mRNA, LNP-S, PF, 100 mcg/ 0.5 mL 71639 Given 04/12/2020 Moderna Sars-(Co vid-19) vaccine, mRNA, LNP-S, PF, 100 mcg/ 0.5 mL 25653 Given 12/22/2017 Influenza Virus Vaccine, Quadrivalent,age 3 and up,multidose vial 78903 Given 03/10/2017 Boostrix (Tdap) Tetnus, Diphtheria Toxoids & Acellular Pertussis [id number] 47629 Given 12/10/2016 Influenza Vaccination 02712 Given 01/23/2016 Influenza Vaccination 96098 Given 08/24/2014 Prevnar 13 [id number] 39928 Given 12/02/2013 Influenza Vaccination 63396 Given 08/25/2013 Zostavax 93269 Given 02/10/2013 Influenza Vaccination 16846 Given 01/23/2012 Pneumococcal Vaccine [id number] 38743 Given 01/23/2012 Influenza Vaccination/preser vative free [id number] Q2038 Given 12/10/2010 Influenza Vaccine (Fluzone)( medicare) 81381 Given 12/10/2010 Influenza Vaccination [id number] Vital Signs Date Vital Result Comment 10/09/2020 11:18am BP Systolic 189 mmHg BP Diastolic 95 mmHg BP Systolic Recheck 124 mmHg BP Diastolic Recheck 84 mmHg Heart Rate 89 /min Body Temperature 98.0 F Respiratory Rate 16 /min Height 63 inches 5'3" Weight 137.25 lb O2 % BldC Oximetry 97 % Peak Expiratory Flow Rate 299 Estimated Peak Flow Rate [place] Body Weight 115 lb BMI (Body Mass [...] Flow Rate 301 Estimated Peak Flow Rate [place] Body Weight 115 lb BMI (Body Mass Index) 24.5 kg/m2 Results Test Acquired Date Facility Test Result H/L Range Note CBC With Differential 10/15/2020 [facility] [address] [place], [place] [address] [phone] WBC 5.6 x10E3/uL 3.4-10.8 RBC 4.57 x10E6/uL [...] Immature Grans (Abs) 0.0 x10E3/uL 0.0-0.1 NRBC [facility] Hematology Comments: [facility] Lipid Panel 10/15/2020 [facility] [address] [place], [place] [id number] [phone] Cholesterol, Total 242 mg/dL High 100-199 Triglycerides 64 mg/dL 0-149 HDL Cholesterol 104 mg/dL >39 VLDL Cholesterol Humza 11 mg/dL 5-40 LDL Chol Calc (Nih) 127 mg/dL High 0-99 Comment: [facility] Metabolic Panel (14), Comprehensive 10/15/2020 [facility] [address] [place] [address] [phone] Glucose 104 mg/dL High 65-99 BUN 9 mg/dL 8-27 Creatinine 0.72 mg/dL 0.57-1.00 eGFR If NonAfricn Am 80 mL/min/1.73 >59 eGFR If Africn Am 93 mL/min/1.73 >59 1 BUN/Creatinine Ratio 13 12-28 Sodium 137 mmol/L [...] 0-40 Alt (SGPT) 17 IU/L 0-32 1 [facility] currently reports eGFR in compliance with the current recommendations of the National Kidney Foundation. [facility] will update reporting as new guidelines are published from the NKF-ASN Task force. Procedures Date Code Description Status 10/09/2020 21869 Office/Outpatient Established Lo w MDM 20-29 Min Completed 12/02/2019 [id number] Mammogram Completed 03/25/2018 [id number] Bone Mineral Density Test Comple maycol 08/17/2015 [id number] Mammogram Completed 04/2011 [id number] Colonoscopy Completed Medical Devices Description No Information [...] - Gilma Monsivais M.D. at Main Office 10/09/2020 - Gilma Monsivais M.D.* Z00.00 Encounter for general adult medical examination without abnormal findings* Comments:* RHM current. * Follow up:* annually and as needed * I10 Essential (primary) hypertension* Comments:* BP elevated here but better out of the office. Will follow her up annually and then schedule pre-op when she has a surgery date. * E78.2 Mixed hyperlipidemia Goals 10/09/2020 - Gilma Monsivais M.D.* I10 Essential (primary) hypertension* Blood Pressure [...]
--- OUTSIDE RECORDS SUMMARY | 2020-12-20 10:12 | CCD | Continuity of Care Document ---
Author Author Kristyn RANDOLPH CERTIFIED REGISTERED LOCKSMITH Organization Unknown Address [address] [place] [address] Phone [phone] Care Team Providers Care Wet Pan Mixer Name Role Phone Renetta MAHMOOD.Tereso AUTM [phone] Mario Contreras MD AUTM [phone] [facility] Gastro - Gastroenterology AUTM [phone] [facility] Nurse Practitioners - Dermatology AUTM [phone] Problems Active Problems Provider Date Essential hypertension [...] CPT Code Status Date Vaccine Lot # [id number] Given 05/14/2020 Moderna Sars-(Co vid-19) vaccine, mRNA, LNP-S, PF, 100 mcg/ 0.5 mL 49527 Given 04/12/2020 Moderna Sars-(Co vid-19) vaccine, mRNA, LNP-S, PF, 100 mcg/ 0.5 mL 72257 Given 12/22/2017 Influenza Virus Vaccine, Oliver drivalent,multidose vial 02906 Given 03/10/2017 Boostrix (Tdap) Tetnus, Diphtheria Toxoids & Acellular Pertussis [id number] 32133 Given 12/10/2016 Influenza Vaccination 33024 Given 01/23/2016 Influenza Vaccination 84457 Given 08/24/2014 Prevnar 13 [id number] 39628 Given 12/02/2013 Influenza Vaccination 80426 Given 08/25/2013 Zostavax 98664 Given 02/10/2013 Influenza Vaccination 92223 Given 01/23/2012 Pneumococcal Vaccine [id number] 68335 Given 01/23/2012 Influenza Vaccination/preser vative free [id number] Q2038 Given 12/10/2010 Influenza Vaccine (Fluzone)( medicare) 74532 Given 12/10/2010 Influenza Vaccination [id number] Vital Signs Date Vital Result Comment 10/09/2020 11:18am BP Systolic 189 mmHg BP Diastolic 95 mmHg BP Systolic Recheck 124 mmHg BP Diastolic Recheck 84 mmHg Heart Rate 89 /min Body Temperature 98.0 F Respiratory Rate 16 /min Height 63 inches 5'3" Weight 137.25 lb O2 % BldC Oximetry 97 % Peak Expiratory Flow Rate 299 Estimated Peak Flow Rate [place] Body Weight 115 lb BMI (Body Mass [...] Flow Rate 301 Estimated Peak Flow Rate [place] Body Weight 115 lb BMI (Body Mass Index) 24.5 kg/m2 Results Test Acquired Date Facility Test Result H/L Range Note Ua Routine 11/27/2020 [facility] nter [phone] Appearance, Urine CLEAR Normal Clear Color, Urine STRAW Normal Yellow PH,Urine 6.0 units Normal 5.0-9.0 Specific [place] Urine Auto 1.004 Normal 1.002-1.035 Protein, Urine [...] /LPF Normal 0-1 Laboratory test finding 11/27/2020 [facility] [phone] Urine Culture FULL REPORT IN L <SEE NOTE> Normal 1 PT & Aptt 11/27/2020 [place] [address] [phone] Prothrombin Time 12.7 seconds Normal 12.7-14.5 Inr 0.91 Normal 2 Partial Thromboplastin Time 27.0 seconds Normal 25.9-37.0 Comprehensive Metabolic Profil 11/27/[address] [place] [address] [phone] Glucose, Fasting 89 mg/dL Normal 70-100 Blood [...] With Differential 11/27/2020 [place] [address] [phone] White Blood Count 6.3 10 Normal 4.0-10.0 [...] 36.0-66.0 Lymph % 26.9 % Normal 24.0-44.0 [place] % 6.6 % Normal 2.0-8.0 Eos % 0.8 % Normal 0.0-3.0 Baso % 0.5 % Normal 0.0-1.0 Immature Granulocyte % 0.5 % Normal 0-3.0 Nucleated Red Blood Cell % 0.0 % Normal 0-0 Neutrophils # 4.1 10 Normal 1.5-8.5 Lymph # 1.7 10 Normal 1.5-5.0 [place] # 0.4 10 Normal 0.0-0.8 Eos # 0.1 10 Normal 0.0-0.5 Baso # 0.0 10 Normal 0.0-0.2 CBC With Differential 10/15/2020 [facility] [address] [place] [address] [phone] WBC 5.6 x10E3/uL 3.4-10.8 RBC 4.57 x10E6/uL [...] [facility] Lipid Panel 10/15/2020 [facility] [address] [place], [place] [address] [phone] Cholesterol, Total 242 mg/dL High 100-199 Triglycerides 64 mg/dL 0-149 HDL Cholesterol 104 mg/dL >39 VLDL Cholesterol Humza 11 mg/dL 5-40 LDL Chol Calc (Nih) 127 mg/dL High 0-99 Comment: [facility] Metabolic Panel (14), Comprehensive 10/15/2020 [facility] [address] [place], [place] [address] [phone] Glucose 104 mg/dL High 65-99 BUN 9 [...] Little GFR Left ESRD GFR <15 on FRAUD REPRESENTATIVE 4 [facility] currently reports eGFR in compliance with the current recommendations of the National Kidney Foundation. [facility] will update reporting as new guidelines are published from the NKF-ASN Task force. Procedures Date Code Description Status 11/27/2020 25411 Office/Outpatient Established Mo d MDM 30-39 Min Completed 10/09/2020 98311 Office/Outpatient Established Lo w MDM 20-29 Min Completed 12/02/2019 [id number] Mammogram Completed 03/25/2018 [id number] Bone Mineral Density Test Comple maycol 08/17/2015 [id number] Mammogram Completed 04/2011 [id number] Colonoscopy Completed Medical Devices Description No Information [...] primary osteoarthriti s, left hip Lucie Randolph, CERTIFIED REGISTERED LOCKSMITH 10/09/2020 Z00.00 Encounter for genera l adult [...]
--- OUTSIDE RECORDS SUMMARY | 2020-12-20 10:12 | CCD | Continuity of Care Document ---
Author Author Kristyn LISA MD Organization Unknown Address [address] , [place] [address] Phone [phone] Care Team Providers Care Aircraft Time Clerk Name Role Phone Gilma Banks M.D. AUTM [phone] AUTM Unavailable Problems Active Problems Provider Date Essential hypertension Khadar Lisa MD Onset: 08/01/2020 Social History Type Date Description Comments Sex Unknown ETOH Use Consumes 1 glass of wine per day Tobacco Use Start: Unknown Non Smoker Recreational Drug Use Denies Drug Use Smoking Status Reviewed: 10/16/20 Non Smoker Allergies, Adverse Reactions, Alerts Description No Known Drug Allergies Medications Active Medications SIG Qnty Indications Ordering Provide r Date Lisinopril 20mg Tablets 1 tab by mouth daily Unknown Immunizations Description No Information Available Vital Signs Date Vital Result Comment 10/16/2020 12:56pm Body Temperature 98.2 F 08/16/2020 2:32pm Body Temperature 97.2 F Results Description No Information Available Procedures Date Code Description Status 10/16/2020 62023 Office/Outpatient Established Mo d MDM 30-39 Min Completed 08/16/2020 55151 Office/Outpatient Established Mo d MDM 30-39 Min Completed 08/01/2020 44135 Office/Outpatient New Moderate M DM 45-59 Minutes Completed Medical Devices Description No Information Available Encounters Type Date Location Provider Dx Diagnosis Office Visit 10/16/2020 1:00p [facility] Khadar Lisa MD M16.12 Unilateral primary osteoarthritis, left hip Office Visit 08/16/2020 2:30p [facility] Lisa MD M16.12 Unilateral primary osteoarthritis, left hip Office Visit 08/01/2020 2:[facility]p [facility] MD M16.12 Unilateral primary osteoarthritis, left hip Assessments Date Code Description Provider 10/16/2020 M16.12 Osteoarthritis of left hip joint Khadar Lisa MD 08/16/2020 M16.12 Osteoarthritis of left hip joint Khadar Lisa MD 08/01/2020 M16.12 Osteoarthritis of left hip joint Khadar Lisa MD Plan of Treatment 10/16/2020 - Khadar Lisa MD* M16.12 Osteoarthritis [...] have Hibiclens soap to clean from the bellybutton down for 5 days prior to surgery.A total joint booklet was providedThe patient signed consent for left total hip arthroplasty Rasta robotic assisted * Follow up:* Booking left total hip arthroplasty Functional Status Description No Information Available Mental Status Description No Information Available Referrals Description No Information Available
--- OUTSIDE RECORDS SUMMARY | 2020-12-20 10:12 | CCD | Continuity of Care Document ---
Author Author Kristyn LISA MD Organization Unknown Address [address] , [facility] [place] [address] Phone [phone] Care Team Providers Care Facility Maintenance Worker Name Role Phone Gilma Banks M.D. AUTM [phone] AUTM Unavailable Problems Active Problems Provider Date [...] Available Procedures Date Code Description Status 10/16/2020 00398 Office/Outpatient Established Mo d MDM 30-39 Min Completed 08/16/2020 58753 Office/Outpatient Established Mo d MDM 30-39 Min Completed 08/01/2020 50294 Office/Outpatient New Moderate M DM 45-59 Minutes [...]
--- OUTSIDE RECORDS SUMMARY | 2020-12-20 10:12 | CCD | Continuity of Care Document ---
Author Author Kristyn LISA MD Organization Unknown Address [address] , [facility] [address] Phone [phone] Care Team Providers Care Siebel Consultant Name Role Phone Gilma Banks M.D. AUTM [phone] AUTM Unavailable Problems Active Problems Provider Date [...] Available Procedures Date Code Description Status 10/16/2020 78228 Office/Outpatient Established Mo d MDM 30-39 Min Completed 08/16/2020 44740 Office/Outpatient Established Mo d MDM 30-39 Min Completed 08/01/2020 60688 Office/Outpatient New Moderate M DM 45-59 Minutes [...]
--- OUTSIDE RECORDS SUMMARY | 2020-12-20 10:12 | CCD | Continuity of Care Document ---
Author Author Kristyn LISA MD Organization Unknown Address [address] , [facility] [place] [address] Phone [phone] Care Team Providers Care Machine Bunch Maker Name Role Phone Gilma Banks M.D. AUTM [phone] AUTM Unavailable Problems Active Problems Provider Date [...] Available Procedures Date Code Description Status 10/16/2020 73208 Office/Outpatient Established Mo d MDM 30-39 Min Completed 08/16/2020 08217 Office/Outpatient Established Mo d MDM 30-39 Min Completed 08/01/2020 13342 Office/Outpatient New Moderate M DM 45-59 Minutes [...]
--- OUTSIDE RECORDS SUMMARY | 2020-12-20 10:12 | CCD | Continuity of Care Document ---
Author Author Kristyn RENO IGNITION SPECIALIST Organization Unknown Address [address] [place] [address] Phone [phone] Care Team Providers Care Burling And Joining Supervisor Name Role Phone Renetta MAHMOOD.Tereso AUTM [phone] Mario Contreras MD AUTM [phone] [facility] Gastro - Gastroenterology AUTM [phone] [facility] Nurse Practitioners - Dermatology AUTM [phone] Problems Active Problems Provider Date Essential hypertension [...] CPT Code Status Date Vaccine Lot # [id number] Given 05/14/2020 Moderna Sars-(Co vid-19) vaccine, mRNA, LNP-S, PF, 100 mcg/ 0.5 mL 73943 Given 04/12/2020 Moderna Sars-(Co vid-19) vaccine, mRNA, LNP-S, PF, 100 mcg/ 0.5 mL 22213 Given 12/22/2017 Influenza Virus Vaccine, Oliver drivalent,multidose vial 59088 Given 03/10/2017 Boostrix (Tdap) Tetnus, Diphtheria Toxoids & Acellular Pertussis [id number] 92055 Given 12/10/2016 Influenza Vaccination 12323 Given 01/23/2016 Influenza Vaccination 77470 Given 08/24/2014 Prevnar 13 [id number] 40687 Given 12/02/2013 Influenza Vaccination 13896 Given 08/25/2013 Zostavax 82951 Given 02/10/2013 Influenza Vaccination 68705 Given 01/23/2012 Pneumococcal Vaccine [id number] 88844 Given 01/23/2012 Influenza Vaccination/preser vative free [id number] Q2038 Given 12/10/2010 Influenza Vaccine (Fluzone)( medicare) 87019 Given 12/10/2010 Influenza Vaccination [id number] Vital Signs Date Vital Result Comment 10/09/2020 11:18am BP Systolic 189 mmHg BP Diastolic 95 mmHg BP Systolic Recheck 124 mmHg BP Diastolic Recheck 84 mmHg Heart Rate 89 /min Body Temperature 98.0 F Respiratory Rate 16 /min Height 63 inches 5'3" Weight 137.25 lb O2 % BldC Oximetry 97 % Peak Expiratory Flow Rate 299 Estimated Peak Flow Rate [place] Body Weight 115 lb BMI (Body Mass [...] Flow Rate 301 Estimated Peak Flow Rate [place] Body Weight 115 lb BMI (Body Mass Index) 24.5 kg/m2 Results Test Acquired Date Facility Test Result H/L Range Note Ua Routine 11/27/2020 [facility] nter [phone] Appearance, Urine CLEAR Normal Clear Color, Urine STRAW Normal Yellow PH,Urine 6.0 units Normal 5.0-9.0 Specific [place] Urine Auto 1.004 Normal 1.002-1.035 Protein, Urine [...] 0-1 PT & Aptt 11/27/2020 [place] [address] [phone] Prothrombin Time 12.7 seconds Normal 12.7-14.5 Inr 0.91 Normal 1 Partial Thromboplastin Time 27.0 seconds Normal 25.9-37.0 Comprehensive Metabolic Profil 11/27/[address] [place] [address] [phone] Glucose, Fasting 89 mg/dL Normal 70-100 Blood [...] With Differential 11/27/2020 [place] [address] [phone] White Blood Count 6.3 10 Normal 4.0-10.0 [...] 36.0-66.0 Lymph % 26.9 % Normal 24.0-44.0 [place] % 6.6 % Normal 2.0-8.0 Eos % 0.8 % Normal 0.0-3.0 Baso % 0.5 % Normal 0.0-1.0 Immature Granulocyte % 0.5 % Normal 0-3.0 Nucleated Red Blood Cell % 0.0 % Normal 0-0 Neutrophils # 4.1 10 Normal 1.5-8.5 Lymph # 1.7 10 Normal 1.5-5.0 [place] # 0.4 10 Normal 0.0-0.8 Eos # 0.1 10 Normal 0.0-0.5 Baso # 0.0 10 Normal 0.0-0.2 CBC With Differential 10/15/[address] [facility] [address] [place] [address] [phone] WBC 5.6 x10E3/uL 3.4-10.8 RBC 4.57 x10E6/uL [...] Immature Grans (Abs) 0.0 x10E3/uL 0.0-0.1 NRBC [facility] Hematology Comments: [facility] Lipid Panel 10/15/2020 [facility] [address] [place], [place] [address] [phone] Cholesterol, Total 242 mg/dL High 100-199 Triglycerides 64 mg/dL 0-149 HDL Cholesterol 104 mg/dL >39 VLDL Cholesterol Humza 11 mg/dL 5-40 LDL Chol Calc (Nih) 127 mg/dL High 0-99 Comment: [facility] Metabolic Panel (14), Comprehensive 10/15/2020 [facility] [address] [place] [address] [phone] Glucose 104 mg/dL High 65-99 BUN 9 [...] Little GFR Left ESRD GFR <15 on DOG BOARDER 3 [facility] currently reports eGFR in compliance with the current recommendations of the National Kidney Foundation. [facility] will update reporting as new guidelines are published from the NKF-ASN Task force. Procedures Date Code Description Status 10/09/2020 14549 Office/Outpatient Established Lo w MDM 20-29 Min Completed 12/02/2019 [id number] Mammogram Completed 03/25/2018 [id number] Bone Mineral Density Test Comple maycol 08/17/2015 [id number] Mammogram Completed 04/2011 [id number] Colonoscopy Completed Medical Devices Description No Information [...]
--- OUTSIDE RECORDS SUMMARY | 2020-12-20 10:12 | CCD | Continuity of Care Document ---
Author Author Kristyn LISA MD Organization Unknown Address [address] , [place] [address] Phone [phone] Care Team Providers Care Recycling Center Operator Name Role Phone Gilma Banks M.D. AUTM [phone] AUTM Unavailable Problems Active Problems Provider Date [...] Available Procedures Date Code Description Status 10/16/2020 93534 Office/Outpatient Established Mo d MDM 30-39 Min Completed 08/16/2020 23825 Office/Outpatient Established Mo d MDM 30-39 Min Completed 08/01/2020 21829 Office/Outpatient New Moderate M DM 45-59 Minutes [...]
--- OUTSIDE RECORDS SUMMARY | 2020-12-20 10:12 | CCD | Continuity of Care Document ---
Author Author Kristyn LISA MD Organization Unknown Address [address] , [facility] [place] [address] Phone [phone] Care Team Providers Care Export Administrator Name Role Phone Gilma Banks M.D. AUTM [phone] AUTM Unavailable Problems Active Problems Provider Date [...] Available Procedures Date Code Description Status 10/16/2020 14759 Office/Outpatient Established Mo d MDM 30-39 Min Completed 08/16/2020 02049 Office/Outpatient Established Mo d MDM 30-39 Min Completed 08/01/2020 38502 Office/Outpatient New Moderate M DM 45-59 Minutes [...]
--- OUTSIDE RECORDS SUMMARY | 2020-12-20 10:12 | CCD | Continuity of Care Document ---
Author Author Kristyn RENO GWOT IA/ILO INTELLIGENCE SUPPORT Organization Unknown Address [address] [place] [address] Phone [phone] Care Team Providers Care Cnc Machine Setter Name Role Phone Renetta MAHMOOD.Tereso AUTM [phone] Mario Contreras MD AUTM [phone] [facility] Gastro - Gastroenterology AUTM [facility] Nurse Practitioners - Dermatology AUTM [phone] Problems Active Problems Provider Date Essential hypertension [...] CPT Code Status Date Vaccine Lot # [id number] Given 05/14/2020 Moderna Sars-(Co vid-19) vaccine, mRNA, LNP-S, PF, 100 mcg/ 0.5 mL 61719 Given 04/12/2020 Moderna Sars-(Co vid-19) vaccine, mRNA, LNP-S, PF, 100 mcg/ 0.5 mL 40518 Given 12/22/2017 Influenza Virus Vaccine, Oliver drivalent,multidose vial 78284 Given 03/10/2017 Boostrix (Tdap) Tetnus, Diphtheria Toxoids & Acellular Pertussis [id number] 33824 Given 12/10/2016 Influenza Vaccination 34952 Given 01/23/2016 Influenza Vaccination 02797 Given 08/24/2014 Prevnar 13 [id number] 39376 Given 12/02/2013 Influenza Vaccination 20928 Given 08/25/2013 Zostavax 45743 Given 02/10/2013 Influenza Vaccination 64133 Given 01/23/2012 Pneumococcal Vaccine [id number] 05260 Given 01/23/2012 Influenza Vaccination/preser vative free [id number] Q2038 Given 12/10/2010 Influenza Vaccine (Fluzone)( medicare) 05780 Given 12/10/2010 Influenza Vaccination [id number] Vital Signs Date Vital Result Comment 10/09/2020 11:18am BP Systolic 189 mmHg BP Diastolic 95 mmHg BP Systolic Recheck 124 mmHg BP Diastolic Recheck 84 mmHg Heart Rate 89 /min Body Temperature 98.0 F Respiratory Rate 16 /min Height 63 inches 5'3" Weight 137.25 lb O2 % BldC Oximetry 97 % Peak Expiratory Flow Rate 299 Estimated Peak Flow Rate [place] Body Weight 115 lb BMI (Body Mass [...] Flow Rate 301 Estimated Peak Flow Rate [place] Body Weight 115 lb BMI (Body Mass Index) 24.5 kg/m2 Results Test Acquired Date Facility Test Result H/L Range Note Ua Routine 11/27/2020 [facility] nter [phone] Appearance, Urine CLEAR Normal Clear Color, Urine STRAW Normal Yellow PH,Urine 6.0 units Normal 5.0-9.0 Specific [place] Urine Auto 1.004 Normal 1.002-1.035 Protein, Urine [...] 0-1 PT & Aptt 11/27/2020 [place] [address] [phone] Prothrombin Time 12.7 seconds Normal 12.7-14.5 Inr 0.91 Normal 1 Partial Thromboplastin Time 27.0 seconds Normal 25.9-37.0 Comprehensive Metabolic Profil 11/27/[address] [place] [address] [phone] Glucose, Fasting 89 mg/dL Normal 70-100 Blood [...] With Differential 11/27/2020 [place] [address] [phone] White Blood Count 6.3 10 Normal 4.0-10.0 [...] 36.0-66.0 Lymph % 26.9 % Normal 24.0-44.0 [place] % 6.6 % Normal 2.0-8.0 Eos % 0.8 % Normal 0.0-3.0 Baso % 0.5 % Normal 0.0-1.0 Immature Granulocyte % 0.5 % Normal 0-3.0 Nucleated Red Blood Cell % 0.0 % Normal 0-0 Neutrophils # 4.1 10 Normal 1.5-8.5 Lymph # 1.7 10 Normal 1.5-5.0 [place] # 0.4 10 Normal 0.0-0.8 Eos # 0.1 10 Normal 0.0-0.5 Baso # 0.0 10 Normal 0.0-0.2 CBC With Differential 10/15/[address] [facility] [address] [place] [address] [phone] WBC 5.6 x10E3/uL 3.4-10.8 RBC 4.57 x10E6/uL [...] Immature Grans (Abs) 0.0 x10E3/uL 0.0-0.1 NRBC [facility] Hematology Comments: [facility] Lipid Panel 10/15/2020 [facility] [address] [place], [place] [address] [phone] Cholesterol, Total 242 mg/dL High 100-199 Triglycerides 64 mg/dL 0-149 HDL Cholesterol 104 mg/dL >39 VLDL Cholesterol Humza 11 mg/dL 5-40 LDL Chol Calc (Nih) 127 mg/dL High 0-99 Comment: [facility] Metabolic Panel (14), Comprehensive 10/15/2020 [facility] [address] [place] [address] [phone] Glucose 104 mg/dL High 65-99 BUN 9 [...] Little GFR Left ESRD GFR <15 on CREDIT DIRECTOR 3 [facility] currently reports eGFR in compliance with the current recommendations of the National Kidney Foundation. [facility] will update reporting as new guidelines are published from the NKF-ASN Task force. Procedures Date Code Description Status 10/09/2020 12005 Office/Outpatient Established Lo w MDM 20-29 Min Completed 12/02/2019 [id number] Mammogram Completed 03/25/2018 [id number] Bone Mineral Density Test Comple maycol 08/17/2015 [id number] Mammogram Completed 04/2011 [id number] Colonoscopy Completed Medical Devices Description No Information [...]
--- OUTSIDE RECORDS SUMMARY | 2020-12-20 10:13 | CCD | Continuity of Care Document ---
Author Author Kristyn MONSIVAIS M.D. Organization Unknown Address [address] [place] [address] Phone [phone] Care Team Providers Care Swahili Teacher Name Role Phone Renetta MAHMOOD.Tereso AUTM [phone] Mario Contreras MD AUTM [phone] [facility] Gastro - Gastroenterology AUTM [facility] Nurse Practitioners - Dermatology AUTM [phone] Problems Active Problems Provider Date Essential hypertension [...] CPT Code Status Date Vaccine Lot # [id number] Given 05/14/2020 Moderna Sars-(Co vid-19) vaccine, mRNA, LNP-S, PF, 100 mcg/ 0.5 mL 07544 Given 04/12/2020 Moderna Sars-(Co vid-19) vaccine, mRNA, LNP-S, PF, 100 mcg/ 0.5 mL 53380 Given 12/22/2017 Influenza Virus Vaccine, Quadrivalent,age 3 and up,multidose vial 99313 Given 03/10/2017 Boostrix (Tdap) Tetnus, Diphtheria Toxoids & Acellular Pertussis [id number] 78943 Given 12/10/2016 Influenza Vaccination 98067 Given 01/23/2016 Influenza Vaccination 01757 Given 08/24/2014 Prevnar 13 [id number] 64175 Given 12/02/2013 Influenza Vaccination 25239 Given 08/25/2013 Zostavax 99784 Given 02/10/2013 Influenza Vaccination 37752 Given 01/23/2012 Pneumococcal Vaccine [id number] 10767 Given 01/23/2012 Influenza Vaccination/preser vative free [id number] Q2038 Given 12/10/2010 Influenza Vaccine (Fluzone)( medicare) 15257 Given 12/10/2010 Influenza Vaccination [id number] Vital Signs Date Vital Result Comment 10/09/2020 11:18am BP Systolic 189 mmHg BP Diastolic 95 mmHg BP Systolic Recheck 124 mmHg BP Diastolic Recheck 84 mmHg Heart Rate 89 /min Body Temperature 98.0 F Respiratory Rate 16 /min Height 63 inches 5'3" Weight 137.25 lb O2 % BldC Oximetry 97 % Peak Expiratory Flow Rate 299 Estimated Peak Flow Rate [place] Body Weight 115 lb BMI (Body Mass [...] Flow Rate 301 Estimated Peak Flow Rate [place] Body Weight 115 lb BMI (Body Mass Index) 24.5 kg/m2 Results Description No Information Available Procedures Date Code Description Status 12/02/2019 [id number] Mammogram Completed 03/25/2018 [id number] Bone Mineral Density Test Comple maycol 08/17/2015 [id number] Mammogram Completed 04/2011 [id number] Colonoscopy Completed Medical Devices Description No Information Available Encounters Description No Information Available Assessments Date Code Description Provider 10/09/2020 Z00.00 Encounter for genera l adult medical examination without abnormal findings Gilma Monsivais M.D. 10/09/2020 I10 Essential (primary) hypertension Gilma Monsivais M.D. 10/09/2020 E78.2 Mixed hyperlipidemia Chitra Monsivais M.D. Plan of Treatment 10/09/2020 - Gilma Monsivais M.D.* Z00.00 Encounter for general adult medical examination without abnormal findings* Follow up:* annually and as needed * I10 Essential (primary) hypertension* New Labs:* CBC With Differential, Scheduled: 10/09/20 * Comprehensive Metabolic Profil, Scheduled: 10/09/20 * Lipid Panel, Scheduled: 10/09/20 * E78.2 Mixed hyperlipidemia Functional Status Functional Condition Comment Date Status Independent with all ADL's Activ e Bifocal glasses Active Independent with all IADL's Acti ve Mental Status Mental Condition Comment Date Status None Active Referrals Description No Information Available
--- OUTSIDE RECORDS SUMMARY | 2020-12-20 10:13 | CCD | Continuity of Care Document ---
Author Author Kristyn MONSIVAIS M.D. Organization Unknown Address [address] [place] [address] Phone [phone] Care Team Providers Care Poker Dealer Name Role Phone Renetta MAHMOOD.Tereso AUTM [phone] Mario Contreras MD AUTM [phone] [facility] Gastro - Gastroenterology AUTM [phone] [facility] Nurse Practitioners - Dermatology AUTM [phone] Problems Active Problems Provider Date Essential hypertension [...] CPT Code Status Date Vaccine Lot # [id number] Given 05/14/2020 Moderna Sars-(Co vid-19) vaccine, mRNA, LNP-S, PF, 100 mcg/ 0.5 mL 42455 Given 04/12/2020 Moderna Sars-(Co vid-19) vaccine, mRNA, LNP-S, PF, 100 mcg/ 0.5 mL 03601 Given 12/22/2017 Influenza Virus Vaccine, Quadrivalent,age 3 and up,multidose vial 53551 Given 03/10/2017 Boostrix (Tdap) Tetnus, Diphtheria Toxoids & Acellular Pertussis [id number] 84220 Given 12/10/2016 Influenza Vaccination 51638 Given 01/23/2016 Influenza Vaccination 72834 Given 08/24/2014 Prevnar 13 [id number] 82331 Given 12/02/2013 Influenza Vaccination 86748 Given 08/25/2013 Zostavax 47910 Given 02/10/2013 Influenza Vaccination 19745 Given 01/23/2012 Pneumococcal Vaccine [id number] 66642 Given 01/23/2012 Influenza Vaccination/preser vative free [id number] Q2038 Given 12/10/2010 Influenza Vaccine (Fluzone)( medicare) 73402 Given 12/10/2010 Influenza Vaccination [id number] Vital Signs Date Vital Result Comment 10/09/2020 11:18am BP Systolic 189 mmHg BP Diastolic 95 mmHg BP Systolic Recheck 124 mmHg BP Diastolic Recheck 84 mmHg Heart Rate 89 /min Body Temperature 98.0 F Respiratory Rate 16 /min Height 63 inches 5'3" Weight 137.25 lb O2 % BldC Oximetry 97 % Peak Expiratory Flow Rate 299 Estimated Peak Flow Rate [place] Body Weight 115 lb BMI (Body Mass [...] Flow Rate 301 Estimated Peak Flow Rate [place] Body Weight 115 lb BMI (Body Mass Index) 24.5 kg/m2 Results Description No Information Available Procedures Date Code Description Status 10/09/2020 45668 Office/Outpatient Established Lo w MDM 20-29 Min Completed 12/02/2019 [id number] Mammogram Completed 03/25/2018 [id number] Bone Mineral Density Test Comple maycol 08/17/2015 [id number] Mammogram Completed 04/2011 [id number] Colonoscopy Completed Medical Devices Description No Information [...] 10/09/20 * Lipid Panel, Scheduled: 10/09/20 * Comments:* BP elevated here but better out [...]
--- OUTSIDE RECORDS SUMMARY | 2020-12-20 10:13 | CCD ---
Author Author [facility] Organization [facility] Address Unknown Phone Unavailable Care Team Providers Care Medical Records Supervisor Name Role Phone Khadar Phillips MD Unavailable Unavailable Alan, Khadar MAHMOOD Unavailable Unavailable Alan, Khadar MAHMOOD Unavailable Unavailable Alan, Khadar MAHMOOD Unavailable Unavailable Alan, Khadar MAHMOOD Unavailable Unavailable Alan, Khadar MAHMOOD Unavailable Unavailable Alan, Khadar MAHMOOD Unavailable Unavailable Alan, Khadar MAHMOOD Unavailable Unavailable Khadar Phillips MD Unavailable Unavailable Darren, Hanna Dillard MD Unavailable Unavailable Darren, Hanna Dillard MD Unavailable Unavailable Darren, Hanna Dillard MD Unavailable Unavailable Darren, Hanna Dillard MD Unavailable Unavailable Darren, Hanna Dillard MD Unavailable Unavailable Darren, Hanna Dillard MD Unavailable Unavailable Darren, Hanna Dillard MD Unavailable Unavailable Darren, Hanna Dillard MD Unavailable Unavailable Darren, Hanna Dillard MD Unavailable Unavailable Darren, Hanna Dillard MD Unavailable Unavailable Darren, Hanna Dillard MD Unavailable Unavailable Darren, Hanna Dillard MD Unavailable Unavailable Darren, Hanna Dillard MD Unavailable Unavailable Darren, Hanna Dillard MD Unavailable Unavailable Darren, Hanna Dillard MD Unavailable Unavailable Darren, Hanna Dillard MD Unavailable Unavailable Darren, Hanna Dillard MD Unavailable Unavailable Darren, Hanna Dillard MD Unavailable Unavailable Darren, Hanna Dillard MD Unavailable Unavailable Darren, Hanna Dillard MD Unavailable Unavailable Darren, Hanna Dillard MD Unavailable Unavailable Darren, Hanna Dillard MD Unavailable Unavailable Darren, Hanna Dillard MD Unavailable Unavailable Darren, Hanna Dillard MD Unavailable Unavailable Darren, Hanna Dillard MD Unavailable Unavailable Darren, Hanna Dillard MD Unavailable Unavailable Darren, Hanna Dillard MD Unavailable Unavailable Darren, Hanna Dillard MD Unavailable Unavailable Darren, Hanna Dillard MD Unavailable Unavailable Darren, Hanna Dillard MD Unavailable Unavailable Darren, Hanna Dillard MD Unavailable Unavailable Darren, Hanna Dillard MD Unavailable Unavailable Darren, Hanna Dillard MD Unavailable Unavailable Darren, Hanna Dillard MD Unavailable Unavailable Darren, Hanna Dillard MD Unavailable Unavailable Darren, Hanna Dillard MD Unavailable Unavailable Darren, Hanna Dillard MD Unavailable Unavailable Darren, Hanna Dillard MD Unavailable Unavailable Darren, Hanna Dillard MD Unavailable Unavailable Darren, A Gilma MAHMOOD Unavailable Unavailable Darren, A Gilma MAHMOOD Unavailable Unavailable Darren, Hanna Dillard MD Unavailable Unavailable Darren, A Gilma MAMHOOD Unavailable Unavailable Darren, Hanna Dillard MD Unavailable Unavailable Darren, A Gilma MAHMOOD Unavailable Unavailable Darren, A Gilma MAHMOOD Unavailable Unavailable Darren, A Gilma MAHMOOD Unavailable Unavailable Darren, A Gilma MAHMOOD Unavailable Unavailable Darren, A Gilma MAHMOOD Unavailable Unavailable Darren, A Gilma MAHMOOD Unavailable Unavailable Darren, A Gilma MAHMOOD Unavailable Unavailable Darren, Hanna Dillard MD Unavailable Unavailable Darren, A Gilma MAHMOOD Unavailable Unavailable Darren, A Gilma MAHMOOD Unavailable Unavailable Darren, A Gilma MAHMOOD Unavailable Unavailable Darren, A Gilma MAHMOOD Unavailable Unavailable Darren, A Gilma MAHMOOD Unavailable Unavailable Darren, A Gilma MAHMOOD Unavailable Unavailable Darren, A Gilma MAHMOOD Unavailable Unavailable Darren, A Gilma MAHMOOD Unavailable Unavailable Darren, A Gilma MAHMOOD Unavailable Unavailable Darren, A Gilma MAHMOOD Unavailable Unavailable Darren, A Gilma MAHMOOD Unavailable Unavailable Darren, A Gilma MAHMOOD Unavailable Unavailable Darren, A Gilma MAHMOOD Unavailable Unavailable Darren, Hanna Dillard MD Unavailable Unavailable Darren, Hanna Dillard MD Unavailable Unavailable Darren, A Gilma MAHMOOD Unavailable Unavailable Darren, A Gilma MAHMOOD Unavailable Unavailable Darren, A Gilma MAHMOOD Unavailable Unavailable Darren, A Gilma MAHMOOD Unavailable Unavailable Darren, A Gilma MAHMOOD Unavailable Unavailable Darren, A Gilma MAHMOOD Unavailable Unavailable Darren, Hanna Dillard MD Unavailable Unavailable Darren, Hanna Dillard MD Unavailable Unavailable Darren, Hanna Dillard MD Unavailable Unavailable Darren, Hanna Dillard MD Unavailable Unavailable Darren, Hanna Dillard MD Unavailable Unavailable Darren, Hanna Dillard MD Unavailable Unavailable Darren, Hanna Dillard MD Unavailable Unavailable Darren, Hanna Dillard MD Unavailable Unavailable Darren, Hanna Dillard MD Unavailable Unavailable Pleskach, Lucie PRODUCT MARKETER Unavailable Unavailable Pleskach, Ulcie PRODUCT MARKETER Unavailable Unavailable Pleskach, Lucie PRODUCT MARKETER Unavailable Unavailable Pleskach, Lucie PRODUCT MARKETER Unavailable Unavailable Pleskach, Lucie PRODUCT MARKETER Unavailable Unavailable Pleskach, Lucie PRODUCT MARKETER Unavailable Unavailable Pleskach, Lucie PRODUCT MARKETER Unavailable Unavailable Pleskach, Lucie PRODUCT MARKETER Unavailable Unavailable Pleskach, Lucie PRODUCT MARKETER Unavailable Unavailable Pleskach, Lucie PRODUCT MARKETER Unavailable Unavailable Pleskach, Lucie PRODUCT MARKETER Unavailable Unavailable Pleskach, Lucie PRODUCT MARKETER Unavailable Unavailable Pleskach, Lucie PRODUCT MARKETER Unavailable Unavailable Pleskach, Lucie PRODUCT MARKETER Unavailable Unavailable Pleskach, Lucie PRODUCT MARKETER Unavailable Unavailable Pleskach, Lucie PRODUCT MARKETER Unavailable Unavailable Pleskach, Lucie PRODUCT MARKETER Unavailable Unavailable Pleskach, Lucie PRODUCT MARKETER Unavailable Unavailable Pleskach, Lucie PRODUCT MARKETER Unavailable Unavailable Pleskach, Lucie PRODUCT MARKETER Unavailable Unavailable Pleskach, Lucie PRODUCT MARKETER Unavailable Unavailable Pleskach, Lucie PRODUCT MARKETER Unavailable Unavailable Pleskach, Lucie PRODUCT MARKETER Unavailable Unavailable Pleskach, Lucie PRODUCT MARKETER Unavailable Unavailable Pleskach, Lucie PRODUCT MARKETER Unavailable Unavailable Pleskach, Lucie PRODUCT MARKETER Unavailable Unavailable Pleskach, Lucie PRODUCT MARKETER Unavailable Unavailable Pleskach, Lucie PRODUCT MARKETER Unavailable Unavailable Pleskach, Lucie PRODUCT MARKETER Unavailable Unavailable Pleskach, Lucie PRODUCT MARKETER Unavailable Unavailable Pleskach, Lucie PRODUCT MARKETER Unavailable Unavailable Pleskach, Lucie PRODUCT MARKETER Unavailable Unavailable Pleskach, Lucie PRODUCT MARKETER Unavailable Unavailable Pleskach, Lucie PRODUCT MARKETER Unavailable Unavailable Pleskach, Lucie PRODUCT MARKETER Unavailable Unavailable Pleskach, Lucie PRODUCT MARKETER Unavailable Unavailable Pleskach, Lucie PRODUCT MARKETER Unavailable Unavailable Pleskach, Lucie PRODUCT MARKETER Unavailable Unavailable Pleskach, Lucie PRODUCT MARKETER Unavailable Unavailable Pleskach, Lucie PRODUCT MARKETER Unavailable Unavailable Pleskach, Lucie PRODUCT MARKETER Unavailable Unavailable Pleskach, Lucie PRODUCT MARKETER Unavailable Unavailable ADJAPONG, DONNELL Unavailable Unavailable Re-disclosure Warning The records that you are about to access may contain information from federally-assisted alcohol or drug abuse programs. If such information is present, then the following federally mandated warning applies: This information has been disclosed to you from records protected by federal confidentiality rules (42 CFR part 2). The federal rules prohibit you from making any further disclosure of this information unless further disclosure is expressly permitted by the written consent of the person to whom it pertains or as otherwise permitted by 42 CFR part 2. A general authorization for the release of medical or other information is NOT sufficient for this purpose. The Federal rules restrict any use of the information to criminally investigate or prosecute any alcohol or drug abuse patient.The records that you are about to access may contain highly sensitive health information, the redisclosure of which is protected by Article 27-F of the [place] State Public Health law. If you continue you may have access to information: Regarding HIV / AIDS; Provided by facilities licensed or operated by the [facility] Office of Mental Health; or Provided by the [facility] Office for People With Developmental Disabilities. If such information is present, then the following [facility] mandated warning applies: This information has been disclosed to you from confidential records which are protected by state law. State law prohibits you from making any further disclosure of this information without the specific written consent of the person to whom it pertains, or as otherwise permitted by law. Any unauthorized further disclosure in violation of state law may result in a fine or fci sentence or both. A general authorization for the release of medical or other information is NOT sufficient authorization for further disc losure. 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, hematopoietic and related tissue, unspecified [facility] 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, hematopoietic and related tissue, unspecified Outpatient Attender: Lucie Randolph [facility] Main Office 11/27/2020 0 2:30:00 PM EDT [facility] ([facility] Outpatient Attender: Khadar Du/David maynard 10/16/2020 01:00:00 PM EDT [facility] ([facility]) Outpatient Attender: Gilma Banks MD Main Office 10/09/2020 11:15:0 0 AM EDT [facility] ([facility] Outpatient Attender: Khadar Du/Kyle/Manjeet/Rein dl 08/16/2020 02:30:00 PM EDT [facility] ([facility] ) Outpatient Attender: Khadar Du/[place]/Manjeet/Rein dl 08/01/2020 02:00:00 PM EDT [facility] ([facility] ) [place] [address] [address] 02/17/2020 12:00:00 AM EST eCW1 ([facility]) (DRMLVL) [place] [address] [address] 02/10/2020 12:00:00 AM EST eCW1 ([facility]) Immunizations Vaccine Date Status Description Data Source(s) COVID-19 VACCINE Moderna 05/14/2020 12:00:00 AM EST completed [facility] Vaccine Series Complete: YESThis Data wa s Submitted to [facility] Via [employer]. COVID-19 VACCINE, MRNA-1273, LNP-S (MODERNA)/PF 05/14/2020 1 2:00:00 AM EST completed [facility] Moderna Sars-(Covid-19) vaccine, mRNA, LNP-S, PF, 100 mcg/ 0.5 mL 05/13/2020 11:00:00 PM EST completed [facility] ([facility] COVID-19 VACCINE Moderna 04/12/2020 12:00:00 AM EST completed [facility] Vaccine Series Complete: NOThis Data was Submitted to [facility] [employer]. COVID-19 VACCINE, MRNA-1273, LNP-S (MODERNA)/PF 04/12/2020 1 2:00:00 AM EST completed [facility] Moderna Sars-(Covid-19) vaccine, mRNA, LNP-S, PF, 100 mcg/ 0.5 mL 04/11/2020 11:00:00 PM EST completed [facility] ([facility] INFLUENZA VACCINE QUADRIVALENT 2019- (65 YR UP)/MF59 C.1/PF 02/01/2020 12:00:00 AM EST completed [facility] Medications Medication Brand Name Start Date Product Form Dose Route Admi nistrative Instructions Pharmacy Instructions Status Indications Reaction Description Data Source(s) 325 mg (65 mg iron) 12/05/2020 12:00:00 AM EDT tablet, delayed release (DR/EC) 30 TAKE ONE TABLET BY MOUTH EVERY DAY TAKE ONE TABL ET BY MOUTH EVERY DAY SOLD: 12/05/2020 [facility] 50 mg 12/05/2020 12:00:00 AM EDT tablet 42 TAKE ONE TABLET BY MOUTH EVERY 4 HOURS NEEDED FOR MILD PAIN MAXIMUM DAILY DOSE = MAXIMUM DAILY DOSE = 6 TABLETS TAKE ONE TABLET BY MOUTH EVERY 4 HOURS A S NEEDED FOR MILD PAIN MAXIMUM DAILY DOSE = MAXIMUM DAILY DOSE = 6 TABLETS SOLD: 12/05/2020 [facility] 100 mg 12/05/2020 12:00:00 AM EDT capsule 60 TAKE ONE CAPSULE BY MOUTH TWICE A DAY TAKE ONE CAPSULE BY MOUTH TWICE A DAY SOLD: 12/05/2020 [facility] 81 mg 12/05/2020 12:00:00 AM EDT tablet,delayed release (DR/EC) 60 TAKE ONE TABLET BY MOUTH TWICE A DAY TAKE ONE TABLET BY MOUTH TWICE A DAY SOLD: 12/05/2020 [facility] 60 mcg (15 mcg x 4)/0.5 mL 11/15/2020 12:00:00 AM EDT syring e 0 INJECT INTRAMUSCULARLY DIRECTED INJECT INTRAMUSCULARLY DIRECTED SOLD: 11/15/2020 [facility] 20 mg 08/08/2020 12:00:00 AM EDT tablet 90 TAKE ONE TABLET BY MOUTH EVERY MORNING FOR BLOOD PRESSURE TAKE ONE TABLET BY MOUTH EVERY MORNING F OR BLOOD PRESSURE SOLD: 08/10/2020 [facility] 20 mg 08/08/2020 12:00:00 AM EDT tablet 90 TAKE ONE TABLET BY MOUTH EVERY MORNING FOR BLOOD PRESSURE TAKE ONE TABLET BY MOUTH EVERY MORNING F OR BLOOD PRESSURE SOLD: 11/26/2020 [facility] 20 mg 06/23/2019 12:00:00 AM EDT tablet 90 TAKE ONE TABLET BY MOUTH EVERY MORNING FOR BLOOD PRESSURE TAKE ONE TABLET BY MOUTH EVERY MORNING F OR BLOOD PRESSURE SOLD: 02/01/2020 [facility] 20 mg 06/23/2019 12:00:00 AM EDT tablet 90 TAKE ONE TABLET BY MOUTH EVERY MORNING FOR BLOOD PRESSURE TAKE ONE TABLET BY MOUTH EVERY MORNING F OR BLOOD PRESSURE SOLD: 05/18/2020 Jordyn rae Insurance Providers Payer name Policy type / Coverage type Policy ID Covered constitution party ID Covered constitution party's relationship to juárez Policy Juárez Plan Information MEDICARE A [id number] Self [id number] UMR U [id number] Self [id number] MEDICARE C [id number] UMR O [id number] S [id number] MEDICARE C [id number] S [id number] A [employer] PPO O [id number] S [id number] [employer] Medigap Part B [id number] Self [id number] Medicare [place] Medicare Primary [id number] Self [id number] [employer] -O/P [id number] 18 [id number] MEDICARE PART A -O/P [id number] 18 [id number] [employer] Medigap Part B [id number] Self [id number] Medicare [place] Medicare Primary [id number] Self [id number] [employer] Medigap Part B [id number] Self Medicare [place] Primary [id number] Self [employer] [id number] SP [id number] MEDICARE [id number] SP [id number] A [id number] A [facility] [id number] SP [id number] MEDICARE [id number] SP [id number] Problems, Conditions, and Diagnoses Code Display Name Description Problem Type Effective Dates Data Source(s) 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, hematopoietic and related tissue, 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, hematopoietic and related tissue, unspecified Diagnosis 12/04/2020 10:28:00 AM EDT U [facility] [id number] Essential hypertension Essential hypertension Problem 08/01/2020 12:00:00 AM EDT [facility] ([facility], ) C44.319 [id number] Basal cell carcinoma, forehead Problem 02/10/2020 12:00:00 AM EST eCW1 ([facility]) Surgeries/Procedures Procedure Description Date Indications Data Source(s) Trans Care SRV Aft DC W/I 14D, Comm W/I 2 Dys Med Decs 12/10/2020 12:00:00 AM EDT [facility] ([facility] ARTHRP ACETBLR/PROX FEM PROSTC AGRFT/ALGRFT 12/04/2020 12:00:00 AM EDT [facility] ([facility], ) ECG ROUTINE ECG W/LEAST 12 LDS W/I&R 11/27/2020 12:00: 00 AM EDT [facility] ([facility] OFFICE OUTPATIENT VISIT 25 MINUTES 11/27/2020 12:00:00 AM EDT [facility] ([facility] OFFICE OUTPATIENT VISIT 25 MINUTES 10/16/2020 12:00:00 AM EDT [facility] ([facility]) OFFICE OUTPATIENT VISIT 15 MINUTES 10/09/2020 12:00:00 AM EDT [facility] ([facility] OFFICE OUTPATIENT VISIT 25 MINUTES 08/16/2020 12:00:00 AM EDT [facility] ([facility]) OFFICE OUTPATIENT NEW 45 MINUTES 08/01/2020 12:00:00 A M EDT [facility] ([facility]) Suture Removal 02/17/2020 12:00:00 AM EST eCW1 ([facility]) Mammogram 12/02/2019 12:00:00 AM EDT M [facility] ([facility] Xray: 10/07/16 - Mammography, Bilateral Results ID Date Data Source [id number] 12/14/2020 11:36:00 AM EDT [facility] Hematopathology Report See Addendum Yenny Cazares: CEE BARDALESMRN: [id number] Number: [id number] Date: 12/04/2020 00:00Received Date: 12/07/2020 14:18Physician(s): DONNELL GUTIERREZ MD ADJAPONG, OPOKU,MDCopy To:[facility]) ReceivedA: Slides received for consultation, KB; received 1 block (A2) and 2 touchpreps from [facility], labeled [id number], collected 12/04/20in consultation with Dr. GutierrezClinical HistoryAtypical lymphocytes seen in hip bone. Rule out lymphoma. DiagnosisLeft hip bone and tissue: Diffuse CD5 positive B-cell infiltrates. Thismost likely represents chronic lymphocytic leukemia (CLL/SLL), but mantlecell lymphoma cannot be completely ruled out. Peripheral blood flowcytometry, including FISH study for CLL and t(11;14) is recommended. Iflymphadenopathy present, lymph node biopsy is also recommended. B-cell PCRis pending. Brianna Singh M.D.;Resident PathologistElectronically Signed By ALMA ROSA LOPEZ M.D. Attending Pathologist 111:36:09The attending pathologist named above attests that he/she has personallyreviewed the relevant preparation(s) for the specimen(s) and rendered thefinal diagnosis. Addendum 12/18/2020 Molecular report () failed due to insufficient DNA quality foranalysis. If clinically indicated, a new sample can be submitted. Addendum Electronically Signed By: Liza Hernandez MD 12/18/2020 12:26 Gross DescriptionStains received for interpretation from the outside institution: CD20.Stains performed at [facility]: CD3, CD5, CD23,cyclin-D1, SOX11, CD10, B-cell PCR.Microscopic DescriptionSections show fragments of bone and cartilage with a focal area consistingof a diffuse infiltrate of small round-oval lymphocytes with condensedchromatin and a mod erate amount of eosinophilic cytoplasm, intermixed withrare scattered histiocytes. There are some areas with normal hematopoiesisand foci of dense lymphoid aggregates composed of small slightly irregularlymphocytes. Immunostains show diffuse positive staining for CD20 and CD5,marking aberrant expression on B cells. CD23, cyclin-D1 and CD10 arenegative. SOX11 is inconclusive, but most likely negative. ProceduresThis report may include one or more immunohistochemical stain/fluorochromeconjugated monoclonal antibody results that use analyte specific reagents.All positive and negative controls h ave been reviewed by the attendingpathologist and are satisfactory. The tests were developed and theirperformance characteristics determined by [facility] Pathology department.They have not been cleared or approved by the US Food and DrugAdministration. The FDA has determined that such clearance or approval isnot necessary. Name Value Range Interpretation Code Description Data Estela rce(s) Supporting Document(s) ID Date Data Source [id number] 12/14/2020 04:13:00 PM [facility] Molecular Diagnostics ReportName: CEE BALTAZARMRN: [id number] Number: [id number] Date: 12/04/2020 00:00Received Date: 12/11/2020 08:45Physician(s): DONNELL GUTIERREZ MD ADJAPONG, OPOKU,[facility] ADAopy To:ALMA ROSA LOPEZ MDSpecimen(s) ReceivedA: Formalin Fixed Tissue - Block A2-B-cell- [id number] OF STUDY: IMMUNOGLOBULIN HEAVY CHAIN GENE REARRANGEMENT AND KAPPALIGHT CHAIN GENE REARRANGEMENT - PCR ASSAYSPECIMEN TYPE: Formalin Fixed Tissue - (#[id number]), Block # [id number]: The sample yielded DNA of insufficient quantity to providea valid result. If clinically indicated, please submit a new sample. COMMENTS: Rearrangement of the Immunoglobulin Heavy Chain gene and kappalight chain gene is largely but not entirely restricted to B lymphocytes.These results should not be the sole criteria for diagnosing a B- celllymphoproliferative disorder. This assay will detect a clonal populationwith a presence of equal to or greater than 10%. Diagnostic sensitivity ofthe combined Immunoglobulin Heavy Chain and [place] Light Chain PCR assayfor B-cell lymphoproliferative disorders is about 95%. The results shouldbe reviewed in conjunction with morphology, immunophenotyping, andclinical findings. This test was developed and its performance determined by the Departmentof Pathology. Although the test has not been cleared or approved by theU.S. Food and Drug Administration (FDA), the FDA has determined that suchapproval is not necessary. The test has been validated and authorized forclinical use by the [facility] Dept. of Health ([facility]). Thelaboratory maintains quality control scientist and automotive quality manager programs toensure a high quality of testing.rw/jsElectronically Signed By Lazaro Robert M.D. Attending Pathologist 12/14/2020 16:13:12 Name Value Range Interpretation Code Description Data Estela rce(s) Supporting Document(s) ID Date Data Source [id number] 11/29/2020 09:05:00 AM EDT [facility] Name Value Range Interpretation Code Description Data Estela rce(s) Supporting Document(s) SARS-CoV-2 (COVID-19) RNA [Presence] in Respiratory specimen by RODRIGO with probe detection Not Detected [facility] This lab was ordered by [facility] and reported by [facility]. ID Date Data Source [id number] 11/27/2020 11:15:00 AM EDT [facility] ([facility] Name Value Range Interpretation Code Description Data Estela rce(s) Supporting Document(s) Bacteria identified in Urine by Culture Laboratory test result [facility] ([facility] FULL REPORT IN LAB NOTES (eCW and [facility] ). SPECIMEN APPEARS CONTAMINATED ID Date Data Source [id number] 11/27/2020 11:15:00 AM EDT [facility] ([facility] Name Value Range Interpretation Code Description Data Estela rce(s) Supporting Document(s) Appearance, Urine Laboratory test result [facility] ([facility] Specific [place] Urine Auto 1.004 1.002-1.035 [facility] ([facility] Color, Urine Laboratory test result [facility] ([facility] PH,Urine 6.0 units 5.0-9.0 [facility] ([facility] Ketone, Urine Auto Laboratory test result [facility] ([facility] Protein, Urine Auto Laboratory test result [facility] ([facility] Glucose, Urine (Ua) Auto Laboratory test result [facility] ([facility] Urobilinogen, Urine Auto 0.2 mg/dL 0.0-2.0 [facility] ([facility] Nitrite, Urine Auto Laboratory test result [facility] ([facility] Bilirubin, Urine Auto Laboratory test result [facility] ([facility] WBC, Urine Auto 1 /HPF 0-3 [facility] ([facility] Blood, Urine Blood Laboratory test result [facility] ([facility] Leukocyte Esterase, Urine Auto Laboratory test result [facility] ([facility] Bacteria, Urine Auto Laboratory test result [facility] ([facility] RBC, Urine Auto 1 /HPF 0-3 [facility] ([facility] Squamous Epithelial Cell Ur AU 0 /HPF 0-6 [facility] ([facility] Hyaline Cast, Urine Auto 0 /LPF 0-1 MED[facility] T ([facility] ID Date Data Source [id number] 11/27/2020 11:13:00 AM EDT [facility] ([facility] Name Value Range Interpretation Code Description Data Estela rce(s) Supporting Document(s) Glucose, Fasting 89 mg/dL 70-100 [facility] ([facility] Creatinine For GFR 0.70 mg/dL 0.55-1.30 [facility] Blood Urea Nitrogen 12 mg/dL 7-18 [facility] ([facility] Glomerular Filtration Rate Laboratory test result [facility] ([facility] <content>Units are mL/min/1.73 m2</content>
<content></content>
<content>Chronic Kidney Disease Staging per NKF:</content>
<content></content>
<content>Stage I & II GFR >=60 Normal to Mildly Decreased</content>
<content>Stage III GFR 30- 59 Moderately Decreased</content>
<content>Stage IV GFR 15-29 Severely Decreased</content>
<content>Stage V GFR <15 Very Little GFR Left</content>
<content>ESRD GFR <15 on [employer]LECT[employer]ALE TESTER</content>
<content></content> Potassium Serum 4.2 meq/L 3.5-5.1 [facility] ([facility] Sodium Level 138 meq/L 136-145 [facility] ([facility] Carbon Dioxide Level 27 meq/L 21-32 [facility] ([facility] Anion Gap 6 meq/L 8-16 [facility] ([facility] Chloride Level 105 meq/L 98-107 [facility] Ast/Sgot 19 U/L 7-37 [facility] Calcium Level 9.5 mg/dL 8.8-10.2 [facility] ([facility] Alt/SGPT 28 U/L 12-78 [facility] ([facility] Alkaline Phosphatase 72 U/L 45-117 [facility] ([facility] Bilirubin,Total 0.7 mg/dL 0.2-1.0 [facility] ([facility] Albumin 3.9 GM/DL 3.2-5.2 [facility] ([facility] Total Protein 6.9 GM/DL 6.4-8.2 [facility] ([facility] Albumin/Globulin Ratio 1.3 1.2-2.2 [facility] ([facility] ID Date Data Source [id number] 11/27/2020 11:13:00 AM EDT [facility] ([facility] Name Value Range Interpretation Code Description Data Estela rce(s) Supporting Document(s) Prothrombin Time 12.7 s 12.7-14.5 [facility] ([facility] Inr 0.91 [facility] ([facility] THERAPUTIC HUMAN INR VALUES INDICATIONS NORMAL RANGES PROPHYLAXIS/TREATMENT OF: VENOUS THROMBOSIS 2.0-3.0 PULMONARY EMBOLISM 2.0-3.0 PREVENTION OF SYSTEMIC EMBOLISM FROM: TISSUE HEART VALVES 2.0-3.0 ACUTE MYOCARDIAL INFARCTION 2.0-3.0 VALVULAR HEART DISEASE 2.0-3.0 ATRIAL FIBRILLATION 2.0-3.0 MECHANICAL VALVES(HIGH RISK) 2.5-3.5 RECURRENT MYOCARDIAL INFARCTION 2.5-3.5 Partial Thromboplastin Time 27.0 s 25.9-37.0 [facility] ID Date Data Source [id number] 11/27/2020 11:12:00 AM EDT [facility] ([facility] Name Value Range Interpretation Code Description Data Estela rce(s) Supporting Document(s) White Blood Count 6.3 10 4.0-10.0 [facility] ([facility] Red Blood Count 4.72 10 4.00-5.40 [facility] ([facility] Hematocrit 43.7 % 36.0-47.0 [facility] ([facility] Hemoglobin 14.7 g/dL 12.0-15.5 [facility] ([facility] Mean Corpuscular Volume 92.6 fl 80.0-96.0 M [facility] ([facility] Mean Corpuscular Hemoglobin 31.1 pg 27.0-33.0 [facility] Mean Corpuscular HGB Conc 33.6 g/dL 32.0-36.5 [facility] Platelet Count, Automated 311 10 150-450 [facility] Red Cell Distribution Width 12.6 % 11.5-14.5 [facility] ([facility] Lymph % 26.9 % 24.0-44.0 [facility] ([facility] Neutrophils % 64.7 % 36.0-66.0 [facility] ([facility] Edmunds % 6.6 % 2.0-8.0 [facility] Eos % 0.8 % 0.0-3.0 [facility] Baso % 0.5 % 0.0-1.0 [facility] Immature Granulocyte % 0.5 % 0-3.0 [facility] Nucleated Red Blood Cell % 0.0 % 0-0 [facility] ([facility] Neutrophils # 4.1 10 1.5-8.5 [facility] Eos # 0.1 10 0.0-0.5 [facility] Edmunds # 0.4 10 0.0-0.8 [facility] Lymph # 1.7 10 1.5-5.0 [facility] Baso # 0.0 10 0.0-0.2 [facility] ([facility] ID Date Data Source [id number] 10/15/2020 09:43:00 AM EDT [facility] ([facility] Name Value Range Interpretation Code Description Data Estela rce(s) Supporting Document(s) Glucose [Mass/volume] in Serum or Plasma 104 mg/dL 65-99 [facility] Creatinine [Mass/volume] in Serum or Plasma 0.72 mg/dL 0.57-1.00 [facility] ([facility] Urea nitrogen [Mass/volume] in Serum or Plasma 9 mg/dL 8-27 [facility] eGFR If Africn Am 93 mL/min/1.73 [facility] ([facility] currently reports eGFR in comp liance with the current recommendations of the National Kidney Foundation. [facility] will update reporting as new guidelines are published from the NKF-ASN Task force. eGFR If NonAfricn Am 80 mL/min/1.73 [facility] ([facility] Urea nitrogen/Creatinine [Mass Ratio] in Serum or Plasma 13 1 2-28 [facility] ([facility] Sodium [Moles/volume] in Serum or Plasma 137 mmol/L 134-144 [facility] Potassium [Moles/volume] in Serum or Plasma 5.0 mmol/L 3.5-5.2 [facility] ([facility] Chloride [Moles/volume] in Serum or Plasma 101 mmol/L 96-106 [facility] ([facility] Calcium [Mass/volume] in Serum or Plasma 9.6 mg/dL 8.7-10.3 [facility] Carbon dioxide, total [Moles/volume] in Serum or Plasma 23 mmol/L 20 -29 [facility] Protein, Total 6.5 g/dL 6.0-8.5 [facility] ([facility] Globulin [Mass/volume] in Serum by calculation 2.0 g/dL 1.5-4.5 [facility] ([facility] Albumin [Mass/volume] in Serum or Plasma 4.5 g/dL 3.7-4.7 [facility] ([facility] Albumin/Globulin [Mass Ratio] in Serum or Plasma 2.3 1.2-2.2 [facility] ([facility] Bilirubin.total [Mass/volume] in Serum or Plasma 0.5 mg/dL 0.0-1.2 [facility] ([facility] Aspartate aminotransferase [Enzymatic activity/volume] in Serum or Plasma 19 IU/L 0-40 [facility] Alanine aminotransferase [Enzymatic activity/volume] in Seru m or Plasma 17 IU/L 0-32 [facility] ([facility] Alkaline phosphatase [Enzymatic activity/volume] in Serum or Plasma 74 IU/L 48-121 [facility] ID Date Data Source [id number] 10/15/2020 09:43:00 AM EDT [facility] ([facility] Name Value Range Interpretation Code Description Data Estela rce(s) Supporting Document(s) Cholesterol [Mass/volume] in Serum or Plasma 242 mg/dL 100-199 [facility] Triglyceride [Mass/volume] in Serum or Plasma 64 mg/dL 0-149 [facility] Cholesterol in HDL [Mass/volume] in Serum or Plasma 104 mg/dL [facility] Laboratory test finding (navigational concept) 11 mg/dL 5-40 [facility] Laboratory test finding (navigational concept) 127 mg/dL 0-99 [facility] Comment: Laboratory test result [facility] ([facility] ID Date Data Source [id number] 10/15/2020 09:43:00 AM EDT [facility] ([facility] Name Value Range Interpretation Code Description Data Estela rce(s) Supporting Document(s) Leukocytes [#/volume] in Blood by Automated count 5.6 x10E3/uL 3.4-10 .8 [facility] ([facility] Hemoglobin [Mass/volume] in Blood 14.1 g/dL 11.1-15.9 [facility] ([facility] Erythrocytes [#/volume] in Blood by Automated count 4.57 x10E6/uL 3.7 7-5.28 [facility] ([facility] Erythrocyte mean corpuscular hemoglobin [Entitic mass] by Automated count 30.9 pg 26.6-33.0 [facility] ([facility] Hematocrit [Volume Fraction] of Blood by Automated count 42.1 % 3 4.0-46.6 [facility] Erythrocyte mean corpuscular volume [Entitic volume] by Auto mated count 92 fL 79-97 [facility] Platelets [#/volume] in Blood by Automated count 330 x10E3/uL 150-450 [facility] Erythrocyte mean corpuscular hemoglobin concentration [Mass/volume] by Automated count 33.5 g/dL 31.5-35.7 [facility] Erythrocyte distribution width [Ratio] by Automated count 12.5 % 11.7-15.4 [facility] Neutrophils 54 % [facility] Lymphocytes/100 leukocytes in Blood by Automated count 36 % [facility] Eosinophils/100 leukocytes in Blood by Automated count 1 % [facility] Basophils/100 leukocytes in Blood by Automated count 1 % [facility] Monocytes/100 leukocytes in Blood by Automated count 8 % [facility] Neutrophils [#/volume] in Blood by Automated count 3.1 x10E3/uL 1.4-7 .0 [facility] ([facility] Lymphocytes [#/volume] in Blood 2.0 x10E3/uL 0.7-3.1 [facility] ([facility] Immature cells [#/volume] in Blood Laboratory test result [facility] ([facility] Basophils [#/volume] in Blood by Automated count 0.0 x10E3/uL 0.0-0.2 [facility] ([facility] Monocytes [#/volume] in Blood 0.4 x10E3/uL 0.1-0.9 [facility] ([facility] Eosinophils [#/volume] in Blood by Automated count 0.0 x10E3/uL 0.0-0 .4 [facility] ([facility] Immature granulocytes [#/volume] in Blood by Automated count 0.0 x10E3/uL 0.0-0.1 [facility] ([facility] Immature granulocytes/100 leukocytes in Blood by Automated count 0 % [facility] Nucleated erythrocytes/100 leukocytes [Ratio] in Blood by Automated count Laboratory test result [facility] ([facility] Morphology [Interpretation] in Blood Narrative Laboratory test result [facility] ([facility] ID Date Data Source [id number] 10/16/2020 04:05:00 AM EDT [facility] Name Value Range Interpretation Code Description Data Estela rce(s) Supporting Document(s) WBC 5.6 x10E3/uL 3.4-10.8 [facility] RBC 4.57 x10E6/uL 3.77-5.28 [facility] Hemoglobin 14.1 g/dL 11.1-15.9 [facility] Hematocrit 42.1 % 34.0-46.6 [facility] MCV 92 fL 79-97 [facility] MCH 30.9 pg 26.6-33.0 [facility] MCHC 33.5 g/dL 31.5-35.7 [facility] RDW 12.5 % 11.7-15.4 [facility] Platelets 330 x10E3/uL 150-450 [facility] Neutrophils 54 % Not Estab. [facility] Lymphs 36 % Not Estab. [facility] Monocytes 8 % Not Estab. [facility] Eos 1 % Not Estab. [facility] Basos 1 % Not Estab. [facility] Neutrophils (Absolute) 3.1 x10E3/uL 1.4-7.0 [facility] Lymphs (Absolute) 2.0 x10E3/uL 0.7-3.1 [facility] Monocytes(Absolute) 0.4 x10E3/uL 0.1-0.9 [facility] Eos (Absolute) 0.0 x10E3/uL 0.0-0.4 [facility] Baso (Absolute) 0.0 x10E3/uL 0.0-0.2 [facility] Immature Granulocytes 0 % Not Estab. [facility] Immature Grans (Abs) 0.0 x10E3/uL 0.0-0.1 [facility] ID Date Data Source [id number] 10/16/2020 05:05:00 AM EDT [facility] Name Value Range Interpretation Code Description Data Estela rce(s) Supporting Document(s) Glucose 104 mg/dL 65-99 Above high normal [facility] BUN 9 mg/dL 8-27 [facility] Creatinine 0.72 mg/dL 0.57-1.00 [facility] eGFR If NonAfricn Am 80 mL/min/1.73 >59 [facility] eGFR If Africn Am 93 mL/min/1.73 >59 [facility] currently reports eGFR in comp liance with the current recommendations of the National Kidney Foundation. [facility] will update reporting as new guidelines are published from the NKF-ASN Task force. BUN/Creatinine Ratio 13 12-28 [facility] Sodium 137 mmol/L 134-144 [facility] Potassium 5.0 mmol/L 3.5-5.2 [facility] Chloride 101 mmol/L 96-106 [facility] Carbon Dioxide, Total 23 mmol/L 20-29 [facility] Calcium 9.6 mg/dL 8.7-10.3 [facility] Protein, Total 6.5 g/dL 6.0-8.5 [facility] Albumin 4.5 g/dL 3.7-4.7 [facility] Globulin, Total 2.0 g/dL 1.5-4.5 [facility] A/G Ratio 2.3 1.2-2.2 Above high normal [facility] Bilirubin, Total 0.5 mg/dL 0.0-1.2 [facility] Alkaline Phosphatase 74 IU/L 48-121 [facility] AST (SGOT) 19 IU/L 0-40 [facility] ALT (SGPT) 17 IU/L 0-32 [facility] ID Date Data Source [id number] 10/16/2020 05:05:00 AM EDT [facility] Name Value Range Interpretation Code Description Data Estela rce(s) Supporting Document(s) Cholesterol, Total 242 mg/dL 100-199 Above high normal [facility] Triglycerides 64 mg/dL 0-149 [facility] HDL Cholesterol 104 mg/dL >39 [facility] VLDL Cholesterol Humza 11 mg/dL 5-40 [facility] LDL Chol Calc (NIH) 127 mg/dL 0-99 Above high normal [facility] ID Date Data Source [id number] 11/30/2019 12:00:00 AM EDT [facility] Patient Name: CEE BARDALES [id number] [address] Date of : [id number] [address] Date of Exam: 11/30/2019#: Fax: [phone] EXAM: MAMMO SCREENING WITH CADCLINICAL INFORMATION: Screening.Based on the personal and family history information your patient suppliedat the time of imaging, her lifetime risk of breast cancer estimated by theTyrer-Cuzick model is 2.4%. Given that this patient has less than 20% TCrisk score, no further medical management is currently recommended at thistime.Digital screening (2D) mammography was performed bilaterally in the CC andMLO projections. A dditionally, breast tomosynthesis (3D mammography) wasperformed bilaterally in the CC and MLO projections. Today's exam wascompared to the prior exam(s).By history, the patient has no complaints of a palpable breast abnormalityor other significant breast complaints.The patient states that a clinical breast exam was not performed.The breasts are unchanged in size and shape. There are no red- soft tissuedensities or spiculated masses. There is no internal architecturaldistortion. There are no suspicious red-calcific clusters. Skinthickening or nipple retraction is not present. Benign calcifications areagain seen bilaterally.The Volpara volumetric breast density category is B, there are scatteredareas of fibroglandular density.IMPRESSION:BI-RADS Category 2 - Benign Finding(s). Stable mammogram. There is noevidence of malignant alteration of the breasts. Followup examinationrecommended in one year.This mammogram was read with the assistance of [employer], an FDAapproved computer aided detection system for mammography.Negative x-ray reports should not delay surgical consultation if a dominantor clinically suspicious mass is present.Not all breast cancers can be identified by mammography. Therefore, werecommend that you continue to perform regular breast self-examination andphysical examination and then promptly contact your physician of anyconcerns or changes.Adenosis and dense breasts may obscure an underlying neoplasm.TARA Rios/Tyshawn you for referring CEE BARDALES to our office. Electronically Signed - DANNY DOWD DO 12/02/19 7:28 Name Value Range Interpretation Code Description Data Estela rce(s) Supporting Document(s) ID Date Data Source [id number] 11/28/2019 09:35:00 AM EDT [facility] ([facility] Name Value Range Interpretation Code Description Data Estela rce(s) Supporting Document(s) Glucose [Mass/volume] in Serum or Plasma 100 mg/dL 65-99 [facility] A courtesy copy of this report has been sent to the patient, Creatinine [Mass/volume] in Serum or Plasma 0.86 mg/dL 0.57-1.00 [facility] ([facility] A courtesy copy of this report has been sent to the patient, Urea nitrogen [Mass/volume] in Serum or Plasma 11 mg/dL 8-27 [facility] A courtesy copy of this report has been sent to the patient, eGFR If NonAfricn Am 65 mL/min/1.73 [facility] ([facility] A courtesy copy of this report has been sent to the patient, Potassium [Moles/volume] in Serum or Plasma 5.0 mmol/L 3.5-5.2 [facility] ([facility] A courtesy copy of this report has been sent to the patient, eGFR If Africn Am 75 mL/min/1.73 [facility] ([facility] A courtesy copy of this report has been sent to the patient, Urea nitrogen/Creatinine [Mass Ratio] in Serum or Plasma 13 1 2-28 [facility] A courtesy copy of this report has been sent to the patient, Sodium [Moles/volume] in Serum or Plasma 136 mmol/L 134-144 [facility] A courtesy copy of this report has been sent to the patient, Carbon dioxide, total [Moles/volume] in Serum or Plasma 22 mmol/L 20 -29 [facility] A courtesy copy of this report has been sent to the patient, Calcium [Mass/volume] in Serum or Plasma 9.9 mg/dL 8.7-10.3 [facility] A courtesy copy of this report has been sent to the patient, Chloride [Moles/volume] in Serum or Plasma 99 mmol/L 96-106 [facility] A courtesy copy of this report has been sent to the patient, Globulin [Mass/volume] in Serum by calculation 2.1 g/dL 1.5-4.5 [facility] A courtesy copy of this report has been sent to the patient, Protein, Total 6.6 g/dL 6.0-8.5 [facility] ([facility] A courtesy copy of this report has been sent to the patient, Albumin [Mass/volume] in Serum or Plasma 4.5 g/dL 3.7-4.7 [facility] A courtesy copy of this report has been sent to the patient, Alkaline phosphatase [Enzymatic activity/volume] in Serum or Plasma 71 IU/L 39-117 [facility] A courtesy copy of this report has been sent to the patient, Albumin/Globulin [Mass Ratio] in Serum or Plasma 2.1 1.2-2.2 [facility] ([facility] A courtesy copy of this report has been sent to the patient, Bilirubin.total [Mass/volume] in Serum or Plasma 0.7 mg/dL 0.0-1.2 [facility] A courtesy copy of this report has been sent to the patient, Aspartate aminotransferase [Enzymatic activity/volume] in Serum or Plasma 28 IU/L 0-40 [facility] A courtesy copy of this report has been sent to the patient, ID Date Data Source [id number] 11/28/2019 09:35:00 AM EDT [facility] ([facility] Name Value Range Interpretation Code Description Data Estela rce(s) Supporting Document(s) Triglyceride [Mass/volume] in Serum or Plasma 101 mg/dL 0-149 [facility] A courtesy copy of this report has been sent to the patient, Cholesterol [Mass/volume] in Serum or Plasma 245 mg/dL 100-199 [facility] A courtesy copy of this report has been sent to the patient, Laboratory test finding (navigational concept) 17 mg/dL 5-40 [facility] A courtesy copy of this report has been sent to the patient, Laboratory test finding (navigational concept) 133 mg/dL 0-99 [facility] A courtesy copy of this report has been sent to the patient, Cholesterol in HDL [Mass/volume] in Serum or Plasma 95 mg/dL [facility] A courtesy copy of this report has been sent to the patient, Comment: Laboratory test result [facility] A courtesy copy of this report has been sent to the patient, ID Date Data Source [id number] 11/29/2019 04:05:00 AM EDT [facility] Name Value Range Interpretation Code Description Data Estela rce(s) Supporting Document(s) Glucose 100 mg/dL 65-99 Above high normal [facility] BUN 11 mg/dL 8-27 [facility] Creatinine 0.86 mg/dL 0.57-1.00 [facility] eGFR If NonAfricn Am 65 mL/min/1.73 >59 [facility] eGFR If Africn Am 75 mL/min/1.73 >59 [facility] BUN/Creatinine Ratio 13 12-28 [facility] Sodium 136 mmol/L 134-144 [facility] Potassium 5.0 mmol/L 3.5-5.2 [facility] Chloride 99 mmol/L 96-106 [facility] Carbon Dioxide, Total 22 mmol/L 20-29 [facility] Calcium 9.9 mg/dL 8.7-10.3 [facility] Protein, Total 6.6 g/dL 6.0-8.5 [facility] Albumin 4.5 g/dL 3.7-4.7 [facility] Globulin, Total 2.1 g/dL 1.5-4.5 [facility] A/G Ratio 2.1 1.2-2.2 [facility] Bilirubin, Total 0.7 mg/dL 0.0-1.2 [facility] Alkaline Phosphatase 71 IU/L 39-117 [facility] AST (SGOT) 28 IU/L 0-40 [facility] ID Date Data Source [id number] 11/29/2019 04:05:00 AM EDT [facility] Name Value Range Interpretation Code Description Data Estela rce(s) Supporting Document(s) Cholesterol, Total 245 mg/dL 100-199 Above high normal [facility] Triglycerides 101 mg/dL 0-149 [facility] HDL Cholesterol 95 mg/dL >39 [facility] VLDL Cholesterol Humza 17 mg/dL 5-40 [facility] LDL Chol Calc (NIH) 133 mg/dL 0-99 Above high normal [facility] Procedure Social History Code Duration Value Status Description Data Source(s ) Smoking 12/18/2020 12:00:00 AM EDT Non Smoker completed Non Smoke r [facility] ([facility], ) Smoking 12/10/2020 12:00:00 AM EDT Patient has never smoked co mpleted Patient has never smoked [facility] Vital Signs ID Date Data Source [id number] Name Value Range Interpretation Code Description Data Source(s) Systolic blood pressure 159 mm[Hg] 159 mm[Hg] M [facility] ([facility] Diastolic blood pressure 72 mm[Hg] 72 mm[Hg] [facility] Systolic blood pressure 133 mm[Hg] 133 mm[Hg] M [facility] ([facility] Diastolic blood pressure 66 mm[Hg] 66 mm[Hg] [facility] Heart rate 100 /min 100 /min [facility] Body temperature 97.0 [degF] 97.0 [degF] [facility] Respiratory rate 18 /min 18 /min [facility] ( [facility] Body height 63 [in_i] 63 [in_i] [facility] ([facility] 5'3" Body weight 135.00 [lb_av] 135.00 [lb_av] [facility] ([facility] Oxygen saturation in Arterial blood by Pulse oximetry 98 % 98 % [facility] [place] body weight 115 [lb_av] 115 [lb_av] [facility] ([facility] Body mass index (BMI) [Ratio] 23.9 kg/m2 23.9 k g/m2 [facility] Body temperature 98.2 [degF] 98.2 [degF] [facility] ([facility], ) Body height 63 [in_i] 63 [in_i] [facility] 5'3" Body weight 137.25 [lb_av] 137.25 [lb_av] [facility] ([facility] Systolic blood pressure 189 mm[Hg] 189 mm[Hg] M [facility] ([facility] Diastolic blood pressure 95 mm[Hg] 95 mm[Hg] [facility] Systolic blood pressure 124 mm[Hg] 124 mm[Hg] M [facility] ([facility] Diastolic blood pressure 84 mm[Hg] 84 mm[Hg] [facility] Heart rate 89 /min 89 /min [facility] Body temperature 98.0 [degF] 98.0 [degF] [facility] Respiratory rate 16 /min 16 /min [facility] ( [facility] Oxygen saturation in Arterial blood by Pulse oximetry 97 % 97 % [facility] ([facility] [place] body weight 115 [lb_av] 115 [lb_av] [facility] ([facility] Body mass index (BMI) [Ratio] 24.3 kg/m2 24.3 k g/m2 [facility] ([facility] Body temperature 97.2 [degF] 97.2 [degF] [facility] ([facility]) Body temperature 97.2 [degF] 97.2 [degF] [facility] ([facility]) Body height 64 [in_i] 64 [in_i] [facility] ([facility]) 5'4" Body weight 61.463 kg 61.463 kg [facility] ([facility]) Body mass index (BMI) [Ratio] 23.3 kg/m2 23.3 k g/m2 [facility] ([facility]) Body temperature 97.8 [degF] 97.8 [degF] [facility] ([facility]) Body weight 135.50 [lb_av] 135.50 [lb_av] [facility] ([facility]) [place] body weight 120 [lb_av] 120 [lb_av] [facility] ([facility]) Body surface area Derived from formula 1.66 m2 1.66 m2 [facility] ([facility]) Body weight 140.8 [lb_av] 140.8 [lb_av] eCW1 ([facility]) Body height [in_i] eCW1 ([facility]) Body mass index (BMI) [Ratio] 27.50 kg/m2 27.50 kg/m2 eCW1 ([facility]) Systolic blood pressure 144 mm[Hg] 144 mm[Hg] e CW1 ([facility]) Diastolic blood pressure 88 mm[Hg] 88 mm[Hg] [facility] ([facility])
== END 2020-12-05 13:35 | disposition home health service (06) ==
LOC: M SDC 08:53 → M MS5PR 08:54 → UNDOADMIN 14:06 → M MS5PR 14:50 → UNDODISIN 12-05 13:35
PROVIDERS: ADMIT General Practice; ATTEND Orthopaedic Surgery Adult Reconstructive Orthopaedic Surgery
DX: M16.12 Unilateral primary osteoarthritis, left hip (principal); M85.052 Fibrous dysplasia (monostotic), left thigh; M91.42 Coxa magna, left hip; I10 Essential (primary) hypertension; K21.9 Gastro-esophageal reflux disease without esophagitis; D50.9 Iron deficiency anemia, unspecified; M19.019 Primary osteoarthritis, unspecified shoulder; Z79.899 Other long term (current) drug therapy; Z79.82 Long term (current) use of aspirin
CPT/HCPCS: 27130; 36415; 72170; 80048; 80061; 85027; 85610; 85730; 88304; 88311; 96372; 96374; 96376; 97110; 97116; 97161; 97165; 97530; C1776; G0378; J0690; J1100; J1650; J2250; J2405; J2765; J3010; S2900

== ENCOUNTER 2020-12-18 14:35 | Inpatient (IN) | payer MEDICARE, OTHER ==
[~2020-12-18] VITALS: Ht 160 cm; Wt 60.1 kg
[2020-12-18] VITALS (12 sets, daily range): BP systolic 110–147; BP diastolic 56–72
[~2020-12-18 14:35] MED LIST changes: -ASPI-161 PO; -C 50TAB PO; -FERR325T3 PO; -MM S100C PO
[2020-12-18] MEDS: ASCORBIC ACID 500 MG TAB PO SCH (15:30)
[2020-12-18] MEDS: FERROUS SULFATE 325MG TAB PO SCH (15:30)
[2020-12-18] MEDS: ASPIRIN 81MG ENTERIC TABLET PO SCH (15:30)
[2020-12-18] MEDS ORDERED: MOM 30ML SUSPENSION UDC PO PRN (16:25)
[2020-12-18] MEDS ORDERED: MAALOX 30 ML SUSP *UDC PO PRN (16:25)
[2020-12-18] MEDS ORDERED: ACETAMINOPHEN TAB 650MG DOSE (2X325MG) PO PRN (16:25)
[2020-12-18] MEDS ORDERED: C 50TAB PO (16:29)
[2020-12-18] MEDS ORDERED: FERR325T3 PO (16:29)
[2020-12-18] MEDS ORDERED: MM S100C PO (16:29)
[2020-12-18] MEDS ORDERED: ASPI-161 PO (16:29)
[2020-12-18] MEDS ORDERED: HOME MED LIST COMPLETE! XX SCH (16:30)
--- NOTE | 2020-12-18 16:44 | HPEPDOC ---
[facility] Medical History & Physical Date of Admission Dec 18, 2020 Date of Service: Dec 18, 2020 Primary Care Physician: Gilma Banks MD Attending Physician: MARTY GUNN DO History and Physical CHIEF COMPLAINT: Fatigue HISTORY OF PRESENT ILLNESS: Patient is a 80-year-old female who presented to the hospital today directly from her orthopedic surgeon's office with a chief complaint of fatigue. Patient states that after her left total hip arthroplasty on 12/04/2020, she was feeling well. Patient was discharged on 12/05/2020 and was doing well up until a few days after this. Patient states about a week ago she began to feel very fatigued and short of breath while working with physical therapy. Patient saw her orthopedic surgeon today who ordered laboratory studies and patient was found to have a hemoglobin of 5.3. Patient was sent to the hospital for transfusion. Patient was found to have possible chronic leukemia on routine pathology of the left hip which was sent after her hip replacement. Patient denies any fevers, chills, night sweats, chest pain, nausea, vomiting, or diarrhea. Patient denies any lymphadenopathy as well. Patient states that she has been working physical therapy and becoming more short of breath than she would expect. PAST MEDICAL HISTORY: 1. Hypertension. 2. GERD. PAST SURGICAL HISTORY: 1. Colonoscopy 2011. 2. Neck cyst removal. 3. Basal cell carcinoma removal. 4. Bilateral cataract removal 5. Left hip total arthroplasty SOCIAL HISTORY: Denies smoking cigarettes or illicit drug use. Patient states that she will occasionally drink alcohol but denied an alcoholic drink in greater than 3 weeks FAMILY HISTORY: Mother had hypertension. Father of lung cancer ALLERGIES: Please see below. REVIEW OF SYSTEMS: General: Patient denies fevers HEENT: Patient denies headaches Cardiovascular: Patient denies chest pain Respiratory: Patient denies shortness of breath, cough GI: Patient denies abdominal pain, nausea, vomiting, diarrhea : Patient denies increased frequency or pain with urination Extremities: Patient denies swelling or pain in extremities Neurological: Patient denies numbness or tingling in legs Skin: Patient denies any new rashes or lesions. Hematologic: Patient denies any easy bruising. Lymphatic: Patient denies any lumps lumps or bumps in neck, axilla, or groin HOME MEDICATIONS: Please see below. PHYSICAL EXAMINATION: VITAL SIGNS: Temperature 99.3, pulse 85, respiratory rate 16, blood pressure 121/56, pulse oximetry 98% on room air. General: HEENT: Normocephalic, atraumatic, moist mucous membranes. Neck: No lymphadenopathy or thyromegaly Cardiac: Regular rate and rhythm, no murmurs, normal S1, normal S2 Pulm: Clear to auscultation bilaterally. No wheezes, rhonchi, rales Abd: Nondistended, nontender to palpation, normal bowel sounds Ext: No edema bilateral lower extremities, no axillary or inguinal lymphadenopathy Neuro: Patient was able to move all 4 extremities on command and reported equal sensation light touch in all 4 extremities. Skin: Skin of the head, neck, upper and lower extremities was examined did not show any evidence of rash or wounds. LABORATORY DATA: See below. IMAGING: No imaging studies has been performed MICROBIOLOGY: Please see below. ASSESSMENT: 80-year-old female presented directly from her orthopedic surgery office after she was found to have an anemia of 5.3.. . PLAN: 1. Symptomatic anemia. Patient will be transfused 3 units. I did speak with hematology/oncology who stated that the anemia does not appear to be secondary to the process going on the bone marrow if it is a CLL or even a mantle cell lymphoma which the pathology did state this could possibly be however, patient does not have any lymphadenopathy. Patient will have iron panel performed prior. Patient will need to follow-up with oncology/hematology upon discharge. Patient will have a repeat CBC tomorrow morning. Patient has been consented for blood. Stool occult blood has been ordered as well. 2. Chronic leukemia. This was found incidentally on pathology of the patient's left hip total arthroplasty. Patient will need follow-up with oncology outpatient. 3. Hypertension. Continue to monitor patient's blood pressure and home antihyp ertensive medications will be added with hold parameters. 4. GERD. Resume PPI. 5. DVT prophylaxis: Teds and sequentials 6. CODE STATUS: Full code Disposition: Patient will be admitted to the medical surgical floor under observation with most likely discharge within 24 to 48 hours. Home Medications Scheduled Ascorbic Acid (Vitamin C) 500 Mg Tablet, 500 MG PO DAILY Aspirin (Aspirin EC) 81 Mg Tablet.dr, 81 MG PO DAILY Docusate Sodium (Stool Softener) 100 Mg Capsule, 100 MG PO DAILY Ferrous Sulfate (Ferrous Sulfate) 325 Mg Tablet.dr, 325 MG PO DAILY Lisinopril (Lisinopril) 20 Mg Tablet, 20 MG PO DAILY Allergies Coded Allergies: No Known Allergies (Unverified , 12/04/20) A-FIB/CHADSVASC A-FIB History Current/History of A-Fib/PAF?: No MARTY GUNN DO Dec 18, 2020 16:44
[2020-12-18] MEDS: DOCUSATE SODIUM 100MG CAPSULE PO SCH (17:30)
[2020-12-18 17:31] LABS: RSV AMPLIFICATION NEGATIVE (NEGATIVE)
[2020-12-18 17:39] LABS: ALBUMIN 2.7 GM/DL (3.2-5.2); ALT/SGPT 19 U/L (12-78); BILIRUBIN,TOTAL 0.3 MG/DL (0.2-1.0); BLOOD UREA NITROGEN 18 MG/DL (7-18); CARBON DIOXIDE LEVEL 25 MEQ/L (21-32); CHLORIDE LEVEL 108 MEQ/L (98-107); CREATININE FOR GFR 0.77 MG/DL (0.55-1.30); FERRITIN 177 NG/ML (8-252); GLOMERULAR FILTRATION RATE > 60.0 (>39); GLUCOSE, FASTING 100 MG/DL (70-100); IRON (FE) 32 UG/DL (50-170); MAGNESIUM LEVEL 1.9 MG/DL (1.8-2.4); PERCENT SATURATION 10.9 % (13.2-45.0); POTASSIUM SERUM 4.5 MEQ/L (3.5-5.1); SODIUM LEVEL 140 MEQ/L (136-145); TOTAL IRON BINDING CAPACITY 294 UG/DL (250-450); TOTAL PROTEIN 5.4 GM/DL (6.4-8.2)
[2020-12-19] MEDS ORDERED: ONDANSETRON 4 MG ORAL DISINTEGRATING TAB PO PRN (00:25)
[2020-12-19 00:35] VITALS: BP 140/71
[2020-12-19 01:13] VITALS: BP 155/76
[2020-12-19 02:13] VITALS: BP 155/78
[2020-12-19 06:12] VITALS: BP 156/78
[2020-12-19 07:30] LABS: BLOOD UREA NITROGEN 15 MG/DL (7-18); CALCIUM LEVEL 8.6 MG/DL (8.8-10.2); CARBON DIOXIDE LEVEL 23 MEQ/L (21-32); CHLORIDE LEVEL 108 MEQ/L (98-107); CREATININE FOR GFR 0.69 MG/DL (0.55-1.30); GLOMERULAR FILTRATION RATE > 60.0 (>39); GLUCOSE, FASTING 104 MG/DL (70-100); MAGNESIUM LEVEL 1.9 MG/DL (1.8-2.4); POTASSIUM SERUM 4.6 MEQ/L (3.5-5.1); SODIUM LEVEL 139 MEQ/L (136-145)
[2020-12-19 08:27] LABS: BASO % 0.2 % (0.0-1.0); EOS % 0.3 % (0.0-3.0); LYMPH % 11.3 % (24.0-44.0); MEAN CORPUSCULAR HEMOGLOBIN 30.4 pg (27.0-33.0); MEAN CORPUSCULAR HGB CONC 33.2 g/dl (32.0-36.5); MEAN CORPUSCULAR VOLUME 91.4 fl (80.0-96.0); MONO # 0.6 10^3/uL (0.0-0.8); MONO % 6.9 % (2.0-8.0); NEUTROPHILS # 7.3 10^3/uL (1.5-8.5); NEUTROPHILS % 80.6 % (36.0-66.0); RED BLOOD COUNT 3.39 10^6/uL (4.00-5.40)
[2020-12-19 08:29] LABS: HEMOGLOBIN 10.3 g/dl (12.0-15.5); PLATELET COUNT, AUTOMATED 456 10^3/uL (150-450)
[2020-12-19] MEDS: ASCORBIC ACID 500 MG TAB PO SCH (08:45)
[2020-12-19] MEDS: FERROUS SULFATE 325MG TAB PO SCH (08:45)
[2020-12-19] MEDS: DOCUSATE SODIUM 100MG CAPSULE PO SCH (08:45)
[2020-12-19] MEDS: ASPIRIN 81MG ENTERIC TABLET PO SCH ×2 (08:45→08:56)
[2020-12-19] MEDS ORDERED: ONDANSETRON 4MG/2ML VIAL IV PRN (09:00)
[2020-12-19 13:14] LABS: HEMATOCRIT 31.9 % (36.0-47.0); HEMOGLOBIN 10.4 g/dl (12.0-15.5)
[2020-12-19 14:00] VITALS: BP 151/79
--- NOTE | 2020-12-19 15:16 | IPNPDOC ---
Text Note Date of Service The patient was seen on 12/19/20. NOTE Subjective: Patient is 72-year-old female was in the hospital from the ortho pedic surgery office with a chief complaint of fatigue. Patient was found to have anemia. Overnight, patient had occult blood positive stool come back. Patient received 3 blood transfusions overnight and is feeling mildly better. Patient is complaining of some nausea today. Patient is otherwise doing well today. Review of systems: General: Patient denies fevers HEENT: Patient denies headaches Cardiovascular: Patient denies chest pain Respiratory: Patient denies shortness of breath, cough GI: Patient reports nausea but denies abdominal pain, vomiting, and diarrhea : Patient denies increased frequency or pain with urination Extremities: Patient denies swelling or pain in extremities Neurological: Patient denies numbness or tingling in legs Physical exam: Vitals: See below General: Alert and oriented female patient who is sitting up in bed when I walked in. Patient not appear to be in any acute distress. HEENT: Normocephalic, atraumatic, moist mucous membranes. Neck: No lymphadenopathy or thyromegaly Cardiac: Regular rate and rhythm, no murmurs, normal S1, normal S2 Pulm: Clear to auscultation bilaterally. No wheezes, rhonchi, rales Abd: Nondistended, nontender to palpation, normal bowel sounds Ext: No edema bilateral lower extremities Labs: See below Imaging: No new imaging has been performed Assessment/plan: 80-year-old female presented directly to orthopedic surgery office after she was found to have a hemoglobin of 5.3. 1. Symptomatic anemia/acute blood loss anemia. Patient was found to have occult blood stool positive. Patient was transfused 3 units. Patient's hemoglobin is now stable around 10. We will repeat H&H every 6 hours overnight and if this remains stable, patient can be discharged home tomorrow with GI follow-up. 2. Chronic leukemia. Found incidentally on pathology of the patient's left hip total arthroplasty. Patient will need oncology follow-up outpatient. 3. Hypertension. Continue to monitor patient blood pressure and add home antihypertensives with hold parameters. 4. GERD. Resume PPI. DVT Prophylaxis: Teds and sequentials Disposition: Pending stabilization hemoglobin. VS,Fishbone, I+O VS, Fishbone, I+O Laboratory Tests 12/18/20 16:36 12/19/20 06:44 12/19/20 12:00 Vital Signs Date Time Temp Pulse Resp B/P (MAP) Pulse Ox O2 Delivery O2 Flow Rate FiO2 12/19/20 14:00 97.4 79 16 151/79 (103) 93 Room Air I&O- Last 24 Hours up to 6 AM 12/19/20 06:00 Intake Total 1264 ml Output Total 100 ml Balance 1164 ml MARTY GUNN DO Dec 19, 2020 15:16
[2020-12-19 18:17] LABS: HEMATOCRIT 31.6 % (36.0-47.0); HEMOGLOBIN 10.3 g/dl (12.0-15.5)
[2020-12-19 22:33] VITALS: BP 153/79
[2020-12-20 01:03] LABS: HEMATOCRIT 31.4 % (36.0-47.0); HEMOGLOBIN 10.3 g/dl (12.0-15.5)
[2020-12-20 07:04] VITALS: BP 153/73
[2020-12-20 08:22] VITALS: BP 153/78
[2020-12-20] MEDS: DOCUSATE SODIUM 100MG CAPSULE PO SCH (08:22)
[2020-12-20] MEDS: ASCORBIC ACID 500 MG TAB PO SCH (08:22)
[2020-12-20] MEDS: FERROUS SULFATE 325MG TAB PO SCH (08:22)
--- NOTE | 2020-12-20 15:55 | DS.PDOC ---
Discharge Summary General Date of Admission Dec 18, 2020 at 15:25 Date of Discharge December 20, 2020 Attending Physician: MARTY GUNN DO Discharge Summary PROCEDURES PERFORMED DURING STAY: None. ADMITTING DIAGNOSES: 1. Symptomatic anemia. 2. Chronic leukemia 3. Hypertension 4. GERD DISCHARGE DIAGNOSES: 1. Symptomatic anemia secondary to acute blood loss anemia from gastroi ntestinal bleeding. 2. Chronic leukemia 3. Hypertension 4. GERD COMPLICATIONS/CHIEF COMPLAINT: Anemia. HISTORY OF PRESENT ILLNESS: Patient is a 80-year-old female who presented to the hospital today directly from her orthopedic surgeon's office with a chief complaint of fatigue. Patient states that after her left total hip arthroplasty on 12/04/2020, she was feeling well. Patient was discharged on 12/05/2020 and was doing well up until a few days after this. Patient states about a week ago she began to feel very fatigued and short of breath while working with physical therapy. Patient saw her orthopedic surgeon today who ordered laboratory studies and patient was found to have a hemoglobin of 5.3. Patient was sent to the hospital for transfusion. Patient was found to have possible chronic leukemia on routine pathology of the left hip which was sent after her hip replacement. Patient denies any fevers, chills, night sweats, chest pain, nausea, vomiting, or diarrhea. Patient denies any lymphadenopathy as well. Patient states that she has been working physical therapy and becoming more short of breath than she would expect. HOSPITAL COURSE: Patient was found to have a positive stool for occult blood overnight on her first day of hospitalization. Patient was kept in her usual ni ght to ensure that her hemoglobin and hematocrit remained stable after blood transfusions. Patient received 3 units of blood while in the hospital. Patient had her hemoglobin remained stable throughout the day on December 19, 2020. Patient was feeling well and was ready for discharge on December 20, 2020. Patient should follow up with oncology for the incidental finding of chronic leukemia that was found after her total hip arthroplasty. Patient was discharged home.. DISCHARGE MEDICATIONS: Please see below. ALLERGIES: Please see below. PHYSICAL EXAMINATION ON DISCHARGE: VITAL SIGNS: Please see below. General: Alert and oriented female patient who was sitting in the chair when I walked in. Patient did not appear to be in any acute distress. HEENT: Normocephalic, atraumatic, moist mucous membranes. Neck: No lymphadenopathy or thyromegaly Cardiac: Regular rate and rhythm, no murmurs, normal S1, normal S2 Pulm: Clear to auscultation bilaterally. No wheezes, rhonchi, rales Abd: Nondistended, nontender to palpation, normal bowel sounds Ext: No edema bilateral lower extremities LABORATORY DATA: Please see below. IMAGING: No imaging was performed PROGNOSIS: Good ACTIVITY: As tolerated. DIET: Regular DISCHARGE PLAN: Discharge home with home health service DISPOSITION: Home Health Service. DISCHARGE INSTRUCTIONS: 1. Follow-up with your primary care provider within 3 to 5 days of discharge. 2. Ask your primary care provider about a referral for gastroenterology. 3. Follow-up with [facility] to discuss further treatment for possible CLL ITEMS TO FOLLOWUP ON ON OUTPATIENT: 1. Possible gastroenterology referral. DISCHARGE CONDITION: Stable. TIME SPENT ON DISCHARGE: 35 minutes. Vital Signs/I&Os Vital Signs Date Time Temp Pulse Resp B/P (MAP) Pulse Ox O2 Delivery O2 Flow Rate FiO2 12/20/20 08:22 153/78 12/20/20 07:04 97.7 77 19 95 Room Air I&O- Last 24 Hours up to 6 AM 12/20/20 06:00 Intake Total 470 ml Output Total 150 ml Balance 320 ml Laboratory Data CBC/BMP Laboratory Tests 12/19/20 18:04 12/20/20 00:07 Microbiology Microbiology 12/19/20 Stool Occult Blood (AAYUSH) - Final, Complete Discharge Medications Scheduled Ascorbic Acid (Vitamin C) 500 Mg Tablet, 500 MG PO DAILY, (Reported) Docusate Sodium (Stool Softener) 100 Mg Capsule, 100 MG PO DAILY, (Reported) Ferrous Sulfate (Ferrous Sulfate) 325 Mg Tablet.dr, 325 MG PO DAILY, (Reported) Lisinopril (Lisinopril) 20 Mg Tablet, 20 MG PO DAILY, (Reported) Allergies Coded Allergies: No Known Allergies (Unverified , 12/04/20) MARTY GUNN DO Dec 20, 2020 15:55
== END 2020-12-20 10:55 | disposition home health service (06) | DRG 812 ==
LOC: M MS5PR 15:25 → OBSVTOIN 12-19 09:23 → UNDODISOB 12-20 10:55
PROVIDERS: ADMIT Internal Medicine; ATTEND Family Medicine
PROC: 30233N1 Transfusion of Nonautologous Red Blood Cells into Peripheral Vein, Percutaneous Approach (ICD-10-PCS; principal; 2020-12-18)
DX: D62 Acute posthemorrhagic anemia (principal); C95.90 Leukemia, unspecified not having achieved remission; K92.2 Gastrointestinal hemorrhage, unspecified; I10 Essential (primary) hypertension; K21.9 Gastro-esophageal reflux disease without esophagitis; Z79.899 Other long term (current) drug therapy; Z79.82 Long term (current) use of aspirin; Z96.642 Presence of left artificial hip joint; Z98.890 Other specified postprocedural states; Z85.828 Personal history of other malignant neoplasm of skin; Z98.41 Cataract extraction status, right eye; Z98.42 Cataract extraction status, left eye; R53.83 Other fatigue

== ENCOUNTER → 2020-12-18 | Outpatient (CLI) | payer MEDICARE, OTHER ==
[~2020-12-18] MED LIST changes: -ACETAMINOPHEN 500 MG TAB PO ONE; +ASCO50TA PO; +ASPI-161 PO; +ASPI-551 PO; +C 50TAB PO; +DOCU100C16 PO; +FERR1TAB8 PO; +FERR325T3 PO; -GLYCOPYRROLATE INJ 0.2 MG/ML 2 ML VIAL As Ordered ONE; -LIDOCAINE 2% 100MG/5ML SDV (FOR ANES.) As Ordered ONE; -METOCLOPRAMIDE INJ 10MG/2ML VIAL (J2765 PER 1) As Ordered ONE; -MIDAZOLAM INJ 2MG/2ML VIAL (J2250 PER 1MG) As Ordered ONE; +MM S100C PO; -MORPHINE 10 MG/ML 1ML VIAL (J2270) As Ordered ONE; -NAPROXEN 250 MG TAB PO ONE; -NEOSTIGMINE 10MG/10ML VIAL (J2710 PER 0.5MG) As Ordered ONE; -NS 1,000 ML IV ONE; -ONDANSETRON 4MG/2ML VIAL As Ordered ONE; -PREGABALIN 25 MG CAP (LYRICA) PO ONE; -ROCURONIUM BROMIDE 50 MG/5 ML VIAL As Ordered ONE; -ROPIVA 125MG/EPINEPH 0.25MG/CLONID 40MCG/KETOR 15MG IN NS 50ML SYRINGE PA ONE; +TRAM50TA2 PO; -TRANEXAMIC ACID INJection 1,000 MG in NS 50 ML IV ONE; -ceFAZolin SOD 1 GM in D5W MINI-BAG PLUS 50 ML IV ONE; -ceFAZolin SOD 2 GM in IV 1 EA IV ONE; -dexameTHASONE 4 MG/ML 1ML VIAL (J1100 PER 1MG) IV ONE; -fentaNYL 100 MCG/2 ML INJECTION (J3010) As Ordered ONE; -propofoL 200 MG/20 ML VIAL As Ordered ONE
--- NOTE | 2020-12-18 11:35 | REP ---
INDICATION: LT ARTIFICIAL HIP Status post arthroplasty. COMPARISON: Pelvic radiograph dated 12/04/2020 TECHNIQUE: Frontal view of the pelvis with neutral and frog-lateral views of the left hip. FINDINGS: The patient is status post left hip replacement with normal positioning and appearance to the femoral and acetabular components. Overlying postsurgical changes have improved/resolved. Remainder of the pelvis demonstrates stable age-related degenerative changes primarily involving the right hip. IMPRESSION: Satisfactory left hip replacement radiographs. <Electronically signed by Max Ayala > 12/18/20 [id number]
== END ==
LOC: M SOG 08:14
PROVIDERS: ATTEND Orthopaedic Surgery Adult Reconstructive Orthopaedic Surgery
DX: Z96.642 Presence of left artificial hip joint (principal)

== ENCOUNTER → 2020-12-18 | Outpatient (CLI) | payer MEDICARE, OTHER ==
[2020-12-18 13:38] LABS: BASO # 0.1 10^3/uL (0.0-0.2); BASO % 0.4 % (0.0-1.0); EOS % 0.2 % (0.0-3.0); LYMPH # 2.2 10^3/uL (1.5-5.0); LYMPH % 16.5 % (24.0-44.0); MEAN CORPUSCULAR HEMOGLOBIN 30.5 pg (27.0-33.0); MEAN CORPUSCULAR HGB CONC 30.3 g/dl (32.0-36.5); MEAN CORPUSCULAR VOLUME 100.6 fl (80.0-96.0); MONO # 0.7 10^3/uL (0.0-0.8); MONO % 5.5 % (2.0-8.0); NEUTROPHILS # 10.1 10^3/uL (1.5-8.5); NEUTROPHILS % 76.1 % (36.0-66.0); PLATELET COUNT, AUTOMATED 669 10^3/uL (150-450); RED BLOOD COUNT 1.74 10^6/uL (4.00-5.40); WHITE BLOOD COUNT 13.3 10^3/uL (4.0-10.0)
[2020-12-18 13:53] LABS: HEMATOCRIT 17.5 % (36.0-47.0)
[2020-12-18 13:54] LABS: HEMOGLOBIN 5.3 g/dl (12.0-15.5)
== END ==
LOC: M PLALAB 10:54
PROVIDERS: ATTEND Orthopaedic Surgery Adult Reconstructive Orthopaedic Surgery
DX: C95.90 Leukemia, unspecified not having achieved remission (principal)

== ENCOUNTER → 2020-12-31 | Outpatient (CLI) | payer MEDICARE, OTHER ==
[~2020-12-31] MED LIST changes: +ASPI-161 PO; +C 50TAB PO; +FERR325T3 PO; +MM S100C PO
[2020-12-31 13:43] LABS: BASO % 0.3 % (0.0-1.0); EOS # 0.1 10^3/uL (0.0-0.5); EOS % 0.8 % (0.0-3.0); HEMATOCRIT 39.8 % (36.0-47.0); HEMOGLOBIN 12.3 g/dl (12.0-15.5); LYMPH # 1.3 10^3/uL (1.5-5.0); LYMPH % 20.1 % (24.0-44.0); MEAN CORPUSCULAR HEMOGLOBIN 29.4 pg (27.0-33.0); MEAN CORPUSCULAR HGB CONC 30.9 g/dl (32.0-36.5); MEAN CORPUSCULAR VOLUME 95.2 fl (80.0-96.0); MONO # 0.4 10^3/uL (0.0-0.8); MONO % 6.6 % (2.0-8.0); NEUTROPHILS # 4.6 10^3/uL (1.5-8.5); NEUTROPHILS % 71.7 % (36.0-66.0); PLATELET COUNT, AUTOMATED 457 10^3/uL (150-450); RED BLOOD COUNT 4.18 10^6/uL (4.00-5.40); WHITE BLOOD COUNT 6.5 10^3/uL (4.0-10.0)
[2020-12-31 14:41] LABS: ALBUMIN 3.3 GM/DL (3.2-5.2); BILIRUBIN,TOTAL 0.4 MG/DL (0.2-1.0); BLOOD UREA NITROGEN 11 MG/DL (7-18); CALCIUM LEVEL 9.9 MG/DL (8.8-10.2); CARBON DIOXIDE LEVEL 27 MEQ/L (21-32); CHLORIDE LEVEL 106 MEQ/L (98-107); CREATININE FOR GFR 0.68 MG/DL (0.55-1.30); GLOMERULAR FILTRATION RATE > 60.0 (>39); GLUCOSE, FASTING 93 MG/DL (70-100); POTASSIUM SERUM 4.3 MEQ/L (3.5-5.1); SODIUM LEVEL 140 MEQ/L (136-145); TOTAL PROTEIN 6.5 GM/DL (6.4-8.2)
[2020-12-31 15:03] LABS: ALT/SGPT 20 U/L (12-78)
== END ==
LOC: M PLALAB 10:03
PROVIDERS: ATTEND Nurse Practitioner Family
DX: D64.9 Anemia, unspecified (principal)

== ENCOUNTER → 2021-01-30 | Outpatient (CLI) | payer MEDICARE, OTHER ==
--- NOTE | 2021-01-30 11:53 | REP ---
INDICATION: LT HIP REPLACEMENT COMPARISON: None. TECHNIQUE: Frontal view of the pelvis with neutral and frog-lateral views of the left hip. FINDINGS: Limited frontal view of the pelvis demonstrates advanced arthritic changes to the right hip including periarticular sclerosis, joint space narrowing, and osteophytosis with possible small loose bodies. Left hip replacement appears normal, stable and intact. IMPRESSION: Normal appearance to the left hip replacement. <Electronically signed by Max Aayla > 01/30/21 [id number]
== END ==
LOC: M SOG 10:02
PROVIDERS: ATTEND Orthopaedic Surgery Adult Reconstructive Orthopaedic Surgery
DX: Z96.642 Presence of left artificial hip joint (principal)

== ENCOUNTER → 2021-04-05 | Outpatient (CLI) | payer MEDICARE, OTHER | LOC: M SOG 10:34 | PROVIDERS: ATTEND Orthopaedic Surgery Adult Reconstructive Orthopaedic Surgery | DX: M79.652 Pain in left thigh (principal); Z96.642 Presence of left artificial hip joint ==

== ENCOUNTER → 2021-05-30 | Outpatient (CLI) | payer MEDICARE, OTHER | LOC: M SOG 10:00 | PROVIDERS: ATTEND Orthopaedic Surgery Adult Reconstructive Orthopaedic Surgery | DX: Z96.642 Presence of left artificial hip joint (principal) ==

== ENCOUNTER → 2021-07-24 | Outpatient (CLI) | payer MEDICARE, OTHER ==
[~2021-07-24] MED LIST changes: +AMOX500C PO
== END ==
LOC: M LABSMTC 11:44
PROVIDERS: ATTEND Anesthesiology
DX: Z20.822 Contact with and (suspected) exposure to COVID-19 (principal)

== ENCOUNTER 2021-07-29 09:55 | Day surgery (SDC) | payer MEDICARE, OTHER ==
[~2021-07-29] VITALS: Ht 162.6 cm; Wt 62.1 kg
[~2021-07-29 09:55] MED LIST changes: +NS 1,000 ML IV ONE
[2021-07-29] MEDS ORDERED: propofoL 500 MG/50 ML VIAL As Ordered ONE (09:59)
[2021-07-29] MEDS ORDERED: LIDOCAINE 2% 100MG/5ML SDV (FOR ANES.) As Ordered ONE (09:59)
[2021-07-29] MEDS ORDERED: fentaNYL 100 MCG/2 ML INJECTION As Ordered ONE (09:59)
[2021-07-29 12:17] VITALS: BP 159/71
== END 2021-07-29 12:26 | disposition home or self-care (01) ==
LOC: M OPP 09:55
PROVIDERS: ATTEND Internal Medicine Gastroenterology
DX: K57.30 Diverticulosis of large intestine without perforation or abscess without bleeding (principal); K64.8 Other hemorrhoids; D62 Acute posthemorrhagic anemia; R19.5 Other fecal abnormalities; K63.3 Ulcer of intestine; K22.2 Esophageal obstruction; R10.13 Epigastric pain; K44.9 Diaphragmatic hernia without obstruction or gangrene
CPT/HCPCS: 43249; 45380; 88305; J3010

== ENCOUNTER → 2021-12-02 | Outpatient (CLI) | payer MEDICARE, OTHER ==
[~2021-12-02] MED LIST changes: -NS 1,000 ML IV ONE
== END ==
LOC: M SOG 09:02
PROVIDERS: ATTEND Orthopaedic Surgery Adult Reconstructive Orthopaedic Surgery
DX: Z96.642 Presence of left artificial hip joint (principal)

== ENCOUNTER → 2021-12-03 | Outpatient (CLI) | payer MEDICARE, OTHER | LOC: M WHC 11:03 | PROVIDERS: ATTEND Family Medicine | DX: Z12.31 Encounter for screening mammogram for malignant neoplasm of breast (principal); M81.0 Age-related osteoporosis without current pathological fracture ==

== ENCOUNTER → 2023-12-07 | Outpatient (CLI) | payer MEDICARE, OTHER ==
[~2023-12-07] MED LIST changes: -ASPI-161 PO; +ASPI-615 PO
== END ==
LOC: M WHC 14:04
PROVIDERS: ATTEND Family Medicine
DX: Z12.31 Encounter for screening mammogram for malignant neoplasm of breast (principal); M81.0 Age-related osteoporosis without current pathological fracture